=== PATIENT | female | born 1940 | race Caucasian/White ===

== ENCOUNTER → 2020-07-22 13:32 | Outpatient (CLI) | payer MEDICARE, SELFPAY ==
--- NOTE | ~2020-07-22 | CT_ITS ---
EXAMINATION: CT abdomen pelvis w con DATE: 07/22/2020 14:08 INDICATION: Pelvic pain and bilateral lower abdominal pain. TECHNIQUE: Computed tomography (CT) of the abdomen and pelvis was performed with 100 mL Omnipaque-350 intravenous contrast. Automated exposure control and iterative reconstruction technique were employe d. The dose-length product was 563.62 mGy-cm. COMPARISON: 02/01/2015 FINDINGS: Several small nodules in the lateral basilar segment of the right lower lobe, the largest measuring 6 mm in maximal diameter. There is mild bronchiectasis in this region suggesting several may represent mucus impacted bronchi. Mild atelectasis at the lingula. Heart size is normal. Atherosclerotic coron toma artery calcifications. No pericardial or pleural effusion. Liver, gallbladder, spleen, pancreas a nd bilateral adrenal glands are normal. Moderate right renal atrophy. There are also bilateral renal cysts measuring up to 2.3 cm at the lower pole of the right kidney. 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 There are scattered colonic diverticula. There is circumferential wall thickening along an approximately 6 cm segment of proximal sigmoid colon with shouldering of the relatively abrupt transitions to normal wall thickness and without significant surrounding inflammat ory stranding which would favor a colon cancer over other focal colitis or diverticulitis. Moderate a mount of stool scattered throughout the colon. No dilated loops of bowel to suggest obstruction. The appendix is not visualized. No pericecal inflammatory change to suggest acute appendicitis. Bladder i s normal. The uterus is not identified and has likely been surgically resected. No free intraperitone al gas or fluid. 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 L5-S1 posterior spinal fusion wi th bilateral vertical baljinder and pedicle screw fixation. IMPRESSION: 1. Circumferential wall thickening along a relatively well-defined 6 cm segment of proximal sigmoid c olon concerning for colonic cancer. Differential includes less likely focal colitis or diverticulitis . Would recommend colonoscopy for further evaluation. 2. Several small pulmonary nodules measuring up to 6 mm in the right lower lobe several with appearan ce suggesting mucous plugging in a region of mild bronchiectatic change which is likely sequela of ch ronic infection. Could consider one-year follow-up low-dose noncontrast chest CT . 3. Suggestion of interval stenting of a prior fusiform infrarenal abdominal aortic aneurysm now measu ring 3 cm in maximal diameter. Correlate with surgical history. 4. Moderate right renal atrophy. Reviewed, dictated and finalized at location B. IMPRESSION: 1. Circumferential wall thickening along a relatively well-defined 6 cm segment of proximal sigmoid colon concerning for colonic cancer. Differential includes less likely focal colitis or diverticulitis. Would recommend colonoscopy for f urther evaluation. 2. Several small pulmonary nodules measuring up to 6 mm in the right lower lobe several with appearance suggesting mucous plugging in a region of mild bronchi ectatic change which is likely sequela of chronic infection. Could consider one -year follow-up low-dose noncontrast chest CT . 3. Suggestion of interval stenting of a prior fusiform infrarenal abdominal aor tic aneurysm now measuring 3 cm in maximal diameter. Correlate with surgical hi story. 4. Moderate right renal atrophy.
[2020-07-22 13:56] LABS: Estimated Glomerular Filt Rate 40
== END ==
PROVIDERS: PCP Chiropractor; Visit Provider Chiropractor
DX: R10.31 Right lower quadrant pain (principal); R93.89 Abnormal findings on diagnostic imaging of other specified body structures
CPT/HCPCS: 74177; Q9967

== ENCOUNTER 2022-02-05 11:24 | Emergency (ER) | payer MEDICARE, SELFPAY ==
--- NOTE | ~2022-02-05 | XR_ITS ---
EXAMINATION: XR chest 2V DATE: 02/05/2022 11:59 INDICATION: Shortness of breath and cough TECHNIQUE: PA and lateral views of the chest were obtained. COMPARISON: Chest radiograph dated 12/21/1969 FINDINGS: Chronic mild right apical pleural-parenchymal scarring. Small calcified nodule at the lateral right l ower lung zone consistent with old granulomatous disease. No other airspace opacities, pulmonary marva a, pleural effusion or pneumothorax. Coronary artery stenting. Mild anterior wedging of a couple mid thoracic vertebral bodies. IMPRESSION: 1. No acute cardiopulmonary disease. Reviewed, dictated and finalized at location A.
[2022-02-05 11:40] VITALS: BP 140/78; PULSE 61; RESP 20; TEMP 38.1; O2SAT 100
--- NOTE | 2022-02-05 11:47 | ED.URI ---
HPI - URI/Sore Throat General Chief Complaint: Upper Respiratory Infection Stated Complaint: COUGH/HURTS TO BREATHE/NASAL CONGESTION Time Seen by Provider: 02/05/22 12:16 Source: patient and RN notes reviewed Mode of arrival: ambulatory Limitations: no limitations History of Present Illness HPI Narrative: 82-year-old female presents to the [facility] with complaints of nasal congestion, cough, fever, reports no appetite. Reports symptoms for 4-5 days. Has not taken anything for her symptoms. Patient is not flu or COVID vaccinated Patient states that she took a COVID test at home which she reports was negative Onset (ago): day(s) (4-5) Consistency: constant Able to tolerate fluids by mouth: Yes Related Data Home Medications Medication Instructions Recorded Confirmed acetaminophen 650 mg tablet 650 mg PO Q6H PRN Insomnia 02/05/22 02/05/22 albuterol sulfate 90 mcg/actuation 2 puff inhalation QID PRN 02/05/22 02/05/22 aerosol inhaler (Ventolin HFA) Shortness Of Breath alprazolam 0.25 mg tablet 0.25 mg PO DAILY PRN Anxiety 02/05/22 02/05/22 apixaban 5 mg (74 tabs) tablets in 5 mg PO BID 02/05/22 02/05/22 a dose pack ([employer] DVT-PE Treat 30D Start) aspirin 81 mg tablet,delayed 81 mg PO DAILY 02/05/22 02/05/22 release cyclobenzaprine 10 mg tablet 10 mg PO PRN PRN Spasms 02/05/22 02/05/22 fluticasone propionate 50 2 spray intranasal PRN PRN 02/05/22 02/05/22 mcg/actuation nasal Congestion spray,suspension hydrocodone 10 mg-acetaminophen 1 tablet PO PRN PRN Pain 02/05/22 02/05/22 325 mg tablet isosorbide mononitrate 60 mg 60 mg PO DAILY 02/05/22 02/05/22 tablet,extended release 24 hr lisinopril 20 mg tablet 20 mg PO DAILY 02/05/22 02/05/22 metoprolol tartrate 50 mg tablet 50 mg PO DAILY 02/05/22 02/05/22 nitroglycerin 0.4 mg sublingual 0.4 mg sublingual PRN PRN Chest 02/05/22 02/05/22 tablet Pain pantoprazole 20 mg tablet,delayed 20 mg PO DAILY 02/05/22 02/05/22 release polyvinyl alcohol-povidone (PF) 1 drp EACH EYE QID 02/05/22 02/05/22 1.4 %-0.6 % eye drops in a dropperette (Refresh Classic (PF)) rosuvastatin 20 mg tablet 20 mg PO DAILY 02/05/22 02/05/22 spironolactone 25 mg tablet 25 mg PO DAILY 02/05/22 02/05/22 tiotropium bromide 18 mcg capsule 1 cap inhalation DAILY 02/05/22 02/05/22 with inhalation device (Spiriva with HandiHaler) vit C 250 mg-vit E 90 mg-zinc 40 1 tablet PO BID 02/05/22 02/05/22 mg-copper 1 [id number]-qiwsry-fwobrw capsule (PreserVision AREDS-2) zolpidem 10 mg tablet 10 mg PO HS PRN Sleep 02/05/22 02/05/22 Allergies Allergy/AdvReac Type Severity Reaction Status Date / Time morphine Allergy Mild Itching Verified 02/05/22 11:48 MEPERIDINE HCL Allergy Severe airway Uncoded 09/20/16 18:30 Review of Systems Review of Systems: All systems reviewed & are unremarkable except as noted in HPI and below Constitutional: Constitutional: Reports as per HPI, Reports chills, Reports fatigue and Reports fever(s) Eyes: Eyes: Reports no additional eye complaints ENT: Reports as per HPI and Reports nasal congestion Cardiovascular: Cardiovascular: Reports no additional cardiovascular complaints Respiratory: Respiratory: Reports as per HPI and Reports cough Gastrointestinal: Gastrointestinal: Reports no additional gastrointestinal complaints Musculoskeletal: Musculoskeletal: Reports no additional musculoskeletal complaints Integumentary/Breasts: Skin/Breast: Reports system reviewed and no additional complaints, except as docu Neurologic: Reports system reviewed and no additional complaints, except as documented Psychiatric: Psychiatric: Reports no additional psychiatric complaints Allergic/Immunologic: Allergic/Immunologic: Reports no additional allergic/immunologic complaints PMFSH Past Medical History Medical History Anxiety High cholesterol History of high blood pressure Pulmonary emboli Comments At the [facility]
== END 2022-02-05 12:45 | disposition home or self-care (01) ==
PROVIDERS: Emergency Provider Nurse Practitioner
DX: U07.1 COVID-19 (principal); E78.00 Pure hypercholesterolemia, unspecified; I10 Essential (primary) hypertension; Z86.711 Personal history of pulmonary embolism; Z79.82 Long term (current) use of aspirin
CPT/HCPCS: 71046; 87426; 87804; 99213; C9803; G0463

== ENCOUNTER 2022-03-24 13:25 | Outpatient (CLI) | payer MEDICARE, SELFPAY ==
--- NOTE | ~2022-03-24 | US_ITS ---
EXAMINATION:US venous doppler LE LT INDICATION:History of DVT. Patient on blood thinners. TECHNIQUE: Multiple grayscale, color flow and Doppler images of the left lower extremity deep venous systems were obtained and reviewed. COMPARISON:No prior studies for comparison. FINDINGS: The common femoral, superficial femoral and popliteal veins demonstrate normal respiratory variation, augmentation and compressibility. Color flow is also seen within the posterior tibial, pe roneal, greater saphenous and profunda veins. IMPRESSION: 1: No lower extremity deep venous thrombosis. Reviewed, dictated and finalized at location A. ENTATION SPECIALIST
== END 2022-03-24 13:26 | disposition home or self-care (01) ==
PROVIDERS: PCP Family Medicine; Visit Provider Family Medicine
DX: R07.89 Other chest pain (principal); I82.409 Acute embolism and thrombosis of unspecified deep veins of unspecified lower extremity
CPT/HCPCS: 93971

== ENCOUNTER 2022-04-04 12:12 | Emergency (ER) | payer MEDICARE, SELFPAY | END 2022-04-04 13:00 | disposition left against medical advice (07) | PROVIDERS: PCP Family Medicine | DX: Z53.21 Procedure and treatment not carried out due to patient leaving prior to being seen by health care provider (principal) | CPT/HCPCS: 99199 ==

== ENCOUNTER → 2022-08-08 11:17 | Outpatient (CLI) | payer MEDICARE, SELFPAY ==
--- NOTE | ~2022-08-08 | XR_ITS ---
EXAMINATION: [id number] INDICATION: Rib pain TECHNIQUE: A frontal view of the chest and 3 views of the bilateral ribs were obtained. COMPARISON: 02/05/2022 FINDINGS: The lungs are free of acute opacities. No pleural effusion or pneumothorax. The cardiomedia stinal silhouette is normal. No displaced rib fracture is identified. A coronary artery stent is note d. IMPRESSION: 1. No acute cardiopulmonary abnormality or evidence of displaced rib fracture. Reviewed, dictated and finalized at location L.
== END ==
PROVIDERS: PCP Family Medicine; Visit Provider Physician Assistant
DX: R07.81 Pleurodynia (principal)
CPT/HCPCS: 71111

== ENCOUNTER 2024-01-08 14:34 | Outpatient (CLI) | payer MEDICARE, SELFPAY ==
--- NOTE | ~2024-01-08 | XR_ITS ---
3 VIEWS LUMBAR SPINE Ordering provider: Eugenia Tejada MD History: . fall 2 weeks ago lbp , hx of back sx many years ago . Comparison: None. FINDINGS: VERTEBRAL BODIES:Postoperative changes in the lumbosacral area. No visible fracture or subluxation. Slight anterior loss of height of L1 is noted most likely chronic. Degenerative changes of the spine. DISK SPACES: Normal. SOFT TISSUES: Normal. IMPRESSION: No acute osseous abnormality lumbar spine. Reviewed, dictated and finalized at location A.
== END 2024-01-08 14:35 | disposition home or self-care (01) ==
PROVIDERS: PCP Family Medicine; Visit Provider Family Medicine
DX: M54.50 Low back pain, unspecified (principal)
CPT/HCPCS: 72110

== ENCOUNTER 2024-10-02 09:24 | Outpatient (CLI) | payer MEDICARE, SELFPAY ==
--- OUTSIDE RECORDS SUMMARY | 2024-10-02 09:49 | XMS_ITS | Clinical Summary ---
Author Organization [facility] Address [address] [place] [address] Care Team Providers Care Pigment Weigher Name Role Phone Diane Campo MD Unavailable [phone] Israel Mari MD Unavailable [phone] Matthew Jones MD Unavailable [phone] Raheem Hess MD Unavailable [phone] Eugenia Tejada MD Primary Care Provider + Allergies Active Allergy Reactions Criticality Noted Date Comments Adhesive Rash Medium Meperidine Anaphylaxis,Hives,Swelling High Throat swelling Morphine Itching Medium Medications lisinopriL (PRINIVIL,ZESTRIL) 20 mg tabletIndications: Renovascular hypertension Take 1 tablet (20 mg total) by mouth 2 (two) times a day 180 tablet 2 Active cyclobenzaprine (FLEXERIL) 5 mg tablet Take 1 tablet (5 mg total) by mouth every morning for muscle spasms 4 Active aspirin 81 mg chewable tablet Take 1 tablet (81 mg total) by mouth daily Active fluticasone propionate (FLONASE) 50 mcg/actuation nasal spray Administer 1 spray into each nostril daily as needed for rhinitis Active isosorbide mononitrate ER (IMDUR) 60 mg 24 hr tablet Take 1 tablet (60 mg total) by mouth daily Active metoprolol tartrate (LOPRESSOR) 50 mg immediate release tablet Take 1 tablet (50 mg total) by mouth 2 (two) times a day Active nitroglycerin (NITROSTAT) 0.[address] 1 tablet (0.4 mg total) under the tongue every 5 (five) minutes as needed for chest pain Active pantoprazole DR (PROTONIX) 20 mg EC tablet Take 2 tablets (40 mg total) by mouth nightly Active rosuvastatin (CRESTOR) 20 mg tablet Take 1 tablet (20 mg total) by mouth nightly Active tiotropium (SPIRIVA) 18 mcg per inhalation capsule Place 1 puff (1 capsule total) into inhaler and inhale bedtime Active albuterol HFA (PROVENTIL HFA,VENTOLIN HFA,PROAIR HFA) 90 mcg/actuation inhaler Inhale 2 puffs every 6 (six) hours as needed for wheezing Active zolpidem (AMBIEN) 10 mg tabletIndications: Sleep-Onset Insomnia Take 1 tablet (10 mg total) by mouth nightly 10 tablet 4 Active acetaminophen (TYLENOL) 325 mg tabletIndications: Fever,Pain Take 2 tablets (650 mg total) by mouth every 4 (four) hours as needed for pain 4 Active ondansetron ODT (ZOFRAN-ODT) 4 mg disintegrating tabletIndications: Nausea and Vomiting Take 1 tablet (4 mg total) by mouth every 6 (six) hours as needed for nausea or vomiting 4 Active oxyCODONE (ROXICODONE) 5 mg immediate release tabletIndications: Pain Take 1 tablet (5 mg total) by mouth every 4 (four) hours as needed for pain 10 tablet 4 Active polyethylene glycol (MIRALAX) 17 gram packet Take 1 packet (17 g total) by mouth daily 4 Active polyethylene glycol (MIRALAX) 17 gram packetIndications: constipation Take 1 packet (17 g total) by mouth daily 4 Active Active Problems Problem Noted Date Diagnosed Date Drug-induced constipation 03/22/2024 Closed fracture of left hip 03/19/2024 Fall 03/19/2024 S/p left hip fracture 03/19/2024 Primary insomnia 09/27/2021 Assessment & Plan (01/12/2022 2:01 PM CDT): - chronic, stable - well managed with Ambien 10 mg nightly - continue management, refill provided Assessment & Plan (09/27/2021 11:06 AM CDT): - chronic, stable - well managed with Ambien 10 mg nightly - continue management, refill provided Moderate episode of recurrent major depressive d isorder 03/16/2021 Assessment & Plan (01/12/2022 3:19 PM CDT): - chronic, not at goal - does not desire to be on medications for depression - somewhat depressed due to current medical/physical condition - also has fibromyalgia - no longer on Cymbalta - continue with current therapy, I have given her my recommendation but does not desire to be on medications, states she will manage Lab Results Component Value Date TSH 1.63 04/23/2021 Assessment & Plan (06/13/2021 1:41 AM BODY SPECIALIST): - chronic, not at goal but improved - somewhat depressed due to current medical/physical condition - also has fibromyalgia - started Cymbalta on last visit with improvement, now at Cymbalta DR 40 mg daily - continue with current therapy Assessment & Plan (03/16/2021 12:10 AM BODY SPECIALIST): - somewhat depressed due to current medical/physical condition - also has fibromyalgia - recommend starting Cymbalta to help with depression and fibromyalgia - start Cymbalta and up titrate as prescribed - follow up in 6-8 weeks S/P lumbar spinal fusion 03/16/2021 Overview (03/16/2021): spinal fusion Lumbar 4-5 fusion Calculus of gallbladder with acute cholecystitis without obstruction 12/05/2020 Assessment & Plan (12/05/2020 7:54 PM CDT): - noted on recent hospitalization - US RUQ 10/03/20 - IMPRESSION: 1. Acute calculous cholecystitis characterized by cholelithiasis, A dilated gallbladder, gallbladder wall thickening, pericholecystic fluid, and positive sonographic Woo sign. - patient was recommended surgery but opted to defer it at the time S/P laparoscopic colectomy 12/03/2020 Overview (12/03/2020): S/p laparoscopic left colectomy due to sigmoid stricture Heart palpitations 09/04/2020 Assessment & Plan (09/04/2020 2:10 PM CDT): - she has history of frequent PVCs and heart palpitations - has been doing well since she has been on Metoprolol Stage 3b chronic kidney disease 09/04/2020 Assessment & Plan (01/12/2022 3:17 PM CDT): - chronic, follows with Nephrology - Dr. Hess - she has known secondary hyperparathyroidism - she has known right renal artery stenosis with scarring - hypertension being managed closely - she has anemia of CKD as well - noted to have renal cysts, at some point if was though to be renal mass but repeat imaging only showed cysts, states she has been told to have one of her kidney's resected out, has follow up in 04/2022 Lab Results Component Value Date CREATININE 1.54 (H) 11/04/2021 BUNSER 24 11/04/2021 SODIUM 135 11/04/2021 POTASSIUM 4.3 11/04/2021 CO2 23 11/04/2021 Assessment & Plan (09/27/2021 10:48 AM CDT): - follows with Nephrology - Dr. Hess - she has known secondary hyperparathyroidism - she has known right renal artery stenosis with scarring - hypertension being managed closely - she has anemia of CKD as well - noted to have renal cysts, at some point if was though to be renal mass but repeat imaging only showed cysts Assessment & Plan (09/04/2020 9:05 PM CDT): - follows with Nephrology - Dr. Hess - she has known secondary hyperparathyroidism - she has known right renal artery stenosis with scarring - hypertension being managed closely - she has anemia of CKD as well - noted to have renal cysts, at some point if was though to be renal mass but repeat imaging only showed cysts S/P total abdominal hysterectomy 09/04/2020 STACEY (generalized anxiety disorder) 09/04/2020 Assessment & Plan (01/12/2022 3:19 PM CDT): - chronic, not at goal - does not desire to be on medications for depression - she has Xanax 0.25 mg which she might use once a month or so - also has fibromyalgia - no longer on Cymbalta - continue with current therapy, I have given her my recommendation but does not desire to be on medications, states she will manage Assessment & Plan (09/27/2021 11:05 AM CDT): - chronic, stable - not on a daily medication - she has had Xanax 0.25mg which she might use once a month or so, refill provided Assessment & Plan (09/04/2020 9:07 PM CDT): - not on a daily medication - she has had Xanax which she might use 4-6 times a year Former smoker 09/03/2020 Assessment & Plan (09/03/2020 1:59 PM CDT): Social History Tobacco Use Smoking Status Former Smoker Packs/day: 1.00 Years: 60.00 Pack years: 60.00 Types: Cigarettes Quit date: 2016 Years since quittin.3 Smokeless Tobacco Never Used Tobacco Comment quit 4 years ago GERD (gastroesophageal reflux disease) Assessment & Plan (12/03/2020 3:02 PM CDT): - currently on Pantoprazole 40 mg nightly - has been working well for her - has never had endoscopy - continue with current therapy Recommend the following changes: - Avoid trigger foods (such as spicy foods, fried foods, onions, peppermints, chocolate, high acid foods and juices, caffeinated beverages, carbonated beverages, and tomato based products). - Avoid alcohol take. - Avoid routine use of NSAIDs. - Avoid lying down for 2-3 hours after eating. - Weight loss encouraged. - Eat smaller meals. - Avoid tobacco use. - Sleep on left side. - may sleep with bed propped. - Avoid wearing tight clothing that puts pressure on the stomach. Assessment & Plan (09/03/2020 2:03 PM CDT): - currently on Pantoprazole 20 mg BID - feels like it does not work very well - worse in nighttime, gets burning symptoms - has never had endoscopy - discussed to use 40 mg nightly and see if that helps Right posterior capsular opacification 8 Chronic bilateral thoracic back pain 10/26/2017 Renovascular hypertension 02/13/2017 Assessment & Plan (01/12/2022 2:03 PM CDT): - chronic, good control, fluctuating - follows with Nephrology - currently on Lisinopril 10mg and 20 mg daily, Metoprolol tartrate 50 mg daily, isosorbide 60 mg nightly - switch to Lisinopril 20 mg BID and start taking chlorthalidone 12.5mg daily, Spironolactone 25 mg daily, Imdur 60 mg daily - she has hx of hypokalemia - current condition CAD s/p stent placement - she follows with Nephrology, she has known renal artery stenosis - management of her BP has not been easy according to her Assessment & Plan (01/13/2021 9:20 PM CDT): - suboptimal control, fluctuating, recent ED visit due to elevated BP readings - currently on Lisinopril 10mg and 20 mg daily, Metoprolol tartrate 50 mg daily, isosorbide 60 mg nightly - switch to Lisinopril 20 mg BID and start taking chlor thalidone 12.5mg daily - she has hx of hypokalemia so will need to monitor her electrolytes closely to avoid hypokalemia - current condition CAD s/p stent placement - she follows with Nephrology, she has known renal artery stenosis - management of her BP has not been easy according to her Assessment & Plan (12/03/2020 2:00 PM CDT): - suboptimal control, fluctuating - currently on Lisinopril 10mg BID and Metoprolol tartrate 50 mg daily, isosorbide 60 mg nightly - current condition CAD s/p stent placement - she follows with Nephrology, she has known renal artery stenosis - management of her BP has not been easy according to her Assessment & Plan (09/04/2020 8:59 PM CDT): - suboptimal control - currently on Lisinopril 30 mg daily and Metoprolol tartrate 50 mg daily - current condition CAD s/p stent placement - will adjust medications - amlodipine caused her leg swelling - she follows with Nephrology, she has known renal artery stenosis - management of her BP has not been easy according to her Pseudophakia of both eyes 06/02/2016 Early dry stage nonexudative age-related macular degeneration of both eyes 06/02/2016 History of abdominal aortic aneurysm (AAA) repai r 12/27/2015 Assessment & Plan (09/04/2020 2:09 PM CDT): - s/p open repair in 06/[address] Abdullahi Saldaña Assessment & Plan (09/05/2017 4:47 PM CDT): S/p repair in June. Doing well. Multiple pulmonary nodules 12/27/2015 Assessment & Plan (03/16/2021 12:16 AM BODY SPECIALIST): - noted in the past - most recent imaging showed the following 01/2020 LUNGS: No pneumonic consolidation. Subtle nodularity is present within the right lower lobe around axial image 52. There is a nodule at axial image 55 which measures 8 mm. There are subtle, thin walled cavitary foci at the right lower lobe axial image 88. - will likely need CT lung cancer screening follow up, will set up on next visit Dyslipidemia 12/27/2015 Assessment & Plan (01/12/2022 2:00 PM CDT): - chronic, stable and well controled - currently on Crestor 20 mg daily - goal LDL <70, has hx of CAD - most recent LDL as shown below - continue with current medication Lab Results Component Value Date LDLCALC 102 11/04/2021 Assessment & Plan (03/16/2021 12:06 AM BODY SPECIALIST): - stable and well controled - currently on Crestor 20 mg daily - goal LDL <70, has hx of CAD - most recent LDL as shown below - continue with current medication - recheck lipid panel before next visit, order placed Lab Results Component Value Date LDLCALC 34 09/21/2020 Assessment & Plan (12/03/2020 3:00 PM CDT): - stable and well controled - currently on Crestor 20 mg daily - goal LDL <70, has hx of CAD - most recent LDL as shown below Lab Results Component Value Date LDLCALC 34 09/21/2020 Assessment & Plan (09/03/2020 1:51 PM CDT): - stable and well controled - currently on Crestor 20 mg daily - goal LDL , 70, most recent LDL as shown below - has hx of CAD Lab Results Component Value Date LDLCALC 62 12/30/2018 Syphilitic ostial coronary disease 12/27/2015 Shortness of breath 06/18/2013 Assessment & Plan (09/04/2020 8:58 PM CDT): - has 60 pk/years of smoking - has albuterol rescue inhaler very infrequently - uses Spiriva on a daily basis - will need a PFT to confirm diagnosis, likely COPD with her hx of smoking Coronary arteriosclerosis in [place] artery 10/12 Assessment & Plan (12/03/2020 2:59 PM CDT): - hx of CAD s/p stents x3 - status post stenting of the circumflex and LAD, with negative nuclear stress test in December 2015. - follows with Cardiology at this time - no shortness of breath or angina - currently on Aspirin 81 mg, Crestor 20 mg, Metoprolol tartrate 50 mg daily - most recent LDL as shown below, goal of LDL <70 Lab Results Component Value Date LDLCALC 34 09/21/2020 - she is a Former long time smoker - continue with current therapy Assessment & Plan (09/04/2020 8:56 PM CDT): - hx of CAD s/p stents x3 - status post stenting of the circumflex and LAD, with negative nuclear stress test in December 2015. - follows with Cardiology at this time - no shortness of breath or angina - currently on Aspirin 81 mg, Crestor 20 mg, Metoprolol tartrate 50 mg daily - most recent LDL as shown below, goal of LDL <70 Lab Results Component Value Date LDLCALC 62 12/30/2018 - she is a Former long time smoker Assessment & Plan (09/05/2017 4:46 PM CDT): Coronary artery disease is unchanged. Continue current treatment regimen. Continue current medications. Cardiac status will be reassessed in 3 months. 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 Mcgowan but has stopped - has stopped narcotic pain medications as it was not helping at all - on gabapentin 300 mg daily - no longer on Cymbalta DR 40 mg daily - frustrated with lack of improvement - uses flexeril PRN - mental health in not good, does not desire mental health medications Lab Results Component Value Date TSH 1.63 04/23/2021 Vitamin D 25-OH Date Value Ref Range Status 08/09/2021 14 (L) 30 - 80 ng/mL Final Assessment & Plan (09/27/2021 10:47 AM CDT): - chronic, not at goal/worse - follows with pain management Dr. Mcgowan - on narcotic pain medications but not helping at all - on gabapentin 300 mg daily - currently on Cymbalta DR 40 mg daily - frustrated with lack of improvement - used flexeril in past - restart Flexeril 5mg daily and if helping can increase dose, script sent Assessment & Plan (06/13/2021 1:39 AM BODY SPECIALIST): - chronic, not at goal/worse - follows with pain management Dr. Mcgowan - on narcotic pain medications but not helping at all - on gabapentin 300 mg daily - currently on Cymbalta DR 40 mg daily - frustrated with lack of improvement - used flexeril in past - restart Flexeril 5mg daily and if helping can increase dose, script sent Assessment & Plan (03/04/2021 2:01 PM BODY SPECIALIST): - chronic, not at goal - not taking any medications at this time - follows with pain management Dr. Mcgowan - on narcotic pain medications - on gabapentin 300 mg daily - not helping at all - start Cymbalta at a low dose Assessment & Plan (12/03/2020 3:49 PM CDT): - has been a chronic condition - not taking any medications at this time - follows with pain management Dr. Mcgowan Assessment & Plan (09/03/2020 1:53 PM CDT): - has been a chronic condition - not taking any medications at this time - follows with pain management Dr. Mcgowan Assessment & Plan (09/05/2017 4:46 PM CDT): Stable. Continue present management. 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 Continue present management. Resolved Problems Problem Noted Date Diagnosed Date Resolved Date Anemia 12/03/2020 03/16/2021 Assessment & Plan (03/16/2021 12:18 AM BODY SPECIALIST): - chronic condition, normalized - check Irons studies, folate, b12 Lab Results Component Value Date HGB 12.2 02/15/2021 Lab Results Component Value Date IRON 63 12/03/2020 TIBC 265 12/03/2020 FERRITIN 55 12/03/2020 Assessment & Plan (12/03/2020 3:51 PM CDT): - chronic condition - check Irons studies, folate, b12 Lab Results Component Value Date HGB 10.8 (L) 12/03/2020 Status post gastrointestinal surgery 10/21/2020 03/16/2021 Stricture of sigmoid colon (CMS/HCC) 08/24/2020 12/03/2020 Sigmoid stricture (CMS/HCC) 08/24/2020 12/03/2020 Overview (08/24/2020): Added automatically from request for surgery [id number] Assessment & Plan (09/04/2020 8:59 PM CDT): - initially noted to have a circumferential wall thickening of the proximal sigmoid colon concerning for malignancy - noted on Colonoscopy to have a stricture - about to undergo colon resection and biopsy for this in September 2020 Eczematous dermatitis of eyelid 03/14/2018 09/03/2020 Pain of both shoulder joints 10/26/2017 09/04/2020 Costochondritis 10/26/2017 09/03/2020 Hypokalemia 08/10/2017 01/12/2022 Assessment & Plan (12/03/2020 3:50 PM CDT): - not on a potassium supplement but has at home that she takes sporadically - having more muscle spasms so concerned about hypokalemia - will check CMP - may need to be on daily low dose potassium supplementation Assessment & Plan (09/03/2020 1:54 PM CDT): - not on a potassium supplement but has at home that she takes sporadically - potassium chloride, not sure about the dosage Tobacco dependence syndrome 12/27/2015 10/26/2017 Overview (07/20/2016): Tobacco dependence Atherosclerosis of aorta ([facility]/HCC) 12/27/2015 01/12/2022 Assessment & Plan (09/05/2017 4:47 PM CDT): Continue aspirin and statin. Breast neoplasm screening status 12/27/2015 09/03/2020 Overview (07/20/2016): Visit for screening mammogram Presence of stent in coronary artery 12/27/2015 09/04/2020 Exhaustion 10/27/2015 09/03/2020 Tobacco use 04/20/2015 10/26/2017 Lumbago 03/23/2015 09/04/2020 Dizziness 12/31/2013 09/03/2020 Disorder of lung 10/09/2013 09/03/2020 Dyslipidemia 10/12/2009 09/03/2020 Encounter for preventive health examination 08/31/2009 09/03/2020 Immunizations Immunization Administration Dates Next Due Influenza, Quadrivalent, Hig h Dose, Preservative Free, Intrr 12/19/2019 Influenza, Trivalent, High D ose, Split, Preservative Free, Intramuscular 01/16/2018,2016,01/30/2015,01/08 Influenza, Unspecified 01/12/2022(Deferr ed: Patient Refused),02/14/2021,01/16/2019, 019,2018,2018,2017,1 Pneumococcal Conjugate PCV 13 12/27/2015 Pneumococcal Polysaccharide PPV23 02/20/2019,04/2001,04/16/2001 Surgical History Surgery Date Site/Laterality Comments TOTAL ABDOMINAL HYSTERECTOMY Hysterectomy, total SPINAL FUSION Spinal fusion, lumbar BACK SURGERY Back Surgery - (Added by TW Conv) [place] EXPLORATION N/FLWD SURG NECK ARTERY Carotid Artery Exploration - (Added by TW Conv) AORTIC ANEURYSM REPAIR 06/20/2017 ABDOMINAL AORTIC ANEURYSM REPAIR HYSTERECTOMY SECTION x4 COLONOSCOPY TUBAL LIGATION COLON SURGERY 09/20/2020 Laparoscopic-assisted left colectomy. CATARACT EXTRACTION Don t remember Medical History Medical History Date Comments Delivered by section 1966 Carotid artery disease 2006 s/p CEA Hypertension AAA (abdominal aortic aneurysm) s/p open repair Weight loss Angina pectoris Constipation Urinary incontinence Back pain Depression Arthritis Kidney disorder Postoperative delirium post-op p ulled out stitched in recovery CAD (coronary artery disease) 2007 s/ p stents GERD (gastroesophageal reflux disease) . Chronic bronchitis (HCC) Often Neuromuscular disorder (HCC) Family History Medical History Relation Name Comments Cancer Brother 2 Wojciech Other Brother 2 Wojciech cancer of the h eart; Cause of : cancer of the heart Alcohol abuse Father Wilfrido Alcoholism; Ca use of : Alcoholism Stroke Father Wilfrido Stroke; Cause o f : Stroke Cancer Mother Sun Stroke Mother Sun Stroke; Cause o f : Stroke Alzheimer's disease Sister Ivonne Anuerysm Sister Ivonne aneurysm; Anesthesia problems Neg Hx Colon cancer Neg Hx Relation Name Status Comments Brother 1 (Age 70) Brother 2 Wojciech Father Wilfrido (Age 65) Mother Sun (Age 80) Sister Ivonne Social History Tobacco Use Types Packs/Day Years Used Date Smoking Tobacco: Former Cigarettes 0.8 60 1 959 - 2016 Smokeless Tobacco: Never Tobacco Cessation:Counseling Given: Not Answered Comments:quit 4 years ago Alcohol Use Standard Drinks/Week Comments Not Currently 0 (1 standard drink = 0.6 oz pur e alcohol) [facility] Utilities Answer Date Recorded In the past 12 months has [employer], gas, oil, or water [place] threatened to shut off services in your home? No 03/20/2024 Social Connection and Isolat ion Panel [NHANES] Answer Date Recorded In a typical week, how many times do you talk on the phone with family, friends, or neighbors? Three times a week 03/20/2024 How often do you get togethe r with friends or relatives? Three times a week 03/20/2024 How often do you attend chur ch or tenriism services? Never 03/20/2024 Do you belong to any clubs o r organizations such as buddhist groups, unions, fraternal or athletic groups, or school groups? Yes 03/20/2024 How often do you attend meet ings of the clubs or organizations you belong to? More than 4 times per year 03/20/2024 Are you , , di vorced, , never , or living with a partner? 03/20/2024 AUDIT-C Answer Date Recorded Q1: How often do you have a drink containing alc ohol? Never 09/17/2020 Average Number of Drinks Not on file 021 Q3: How often do you have si x or more drinks on one occasion? Never 09/17/2020 Overall Financial Resource Strain (CARDIA) Answe r Date Recorded How hard is it for you to pa y for the very basics like food, housing, medical care, and heating? Not hard at all 03/20/2024 PHQ-2 Answer Date Recorded PHQ-2 Total Score (If total score is 3 or more points, staff should administer the PHQ-9) 0 01/12/2022 Hunger Vital Sign Answer Date Recorded Within the past 12 months, y ou worried that your food would run out before you got the money to buy more. Never true 03/20/20 24 Within the past 12 months, t he food you bought just didn't last and you didn't have money to get more. Never true 03/20/2024 PRAPARE - Transportation Answer Date Re corded In the past 12 months, has l ack of transportation kept you from medical appointments or from getting medications? No 08/2023 In the past 12 months, has l ack of transportation kept you from meetings, work, or from getting things needed for daily living? No 03/20/2024 Housing Stability Vital Sign Answer Momo e Recorded In the last 12 months, was t here a time when you were not able to pay the mortgage or rent on time? No 03/20/2024 Number of Times Moved in the Last Year Not on fi le 03/20/2024 At any time in the past 12 m general [facility], were you homeless or living in a prison (including now)? No 03/20/2024 Personal Safety Answer Date Recorded Have you ever been in or are you currently in a harmful physical or emotional relationship or is someone making you feel afraid or unsafe? Denies 03/20/2024 Comments No Sex and Gender Information Value Date Recorded Sex Assigned at Not on file Legal Sex Female 2:38 AM BODY SPECIALIST Gender Identity Not on file Sexual Orientation Not on file Obstetrics History Last Filed Vital Signs Vital Sign Reading Time Taken Comments Blood Pressure 115/55 03/26/2024 8:08 AM BODY SPECIALIST Pulse 73 03/26/2024 9:20 AM BODY SPECIALIST Temperature 36.4 C (97.6 F) 03/26/2024 8:08 AM BODY SPECIALIST Respiratory Rate 16 03/26/2024 8:08 AM BODY SPECIALIST Oxygen Saturation 96% 03/26/2024 8:57 AM BODY SPECIALIST Inhaled Oxygen Concentration - - Weight 79.4 kg (175 lb 0.7 oz) 03/20/2024 2:30 P M BODY SPECIALIST Height 177.8 cm (5' 10) 03/20/2024 2:30 PM BODY SPECIALIST Body Mass Index 25.12 03/20/2024 2:30 PM BODY SPECIALIST Plan of Treatment Scheduled Procedures Name Priority Associated Diagnoses Date/Ti me ESOPHAGOGASTRODUODENOSCOPY Gastroesophageal reflux disease, esophagitis presence not specified Health Maintenance Due Date Last Done Comments Osteoporosis Screening-Bone Density Scan 1940 DTaP/Tdap/Td Vaccine (1 - Tdap) 1953 Hepatitis B Screening 01/15/1960 Zoster Vaccine (1 of 2) 01/15/1992 Well Visit 65+ 02/21/2020 02/20/2019 Depression Screening 01/12/2023 01/12/2022, 09/27/2021, 05/31/2021, Additional history exists Influenza Vaccine (Season Ended) 2024 02/14/2021, 12/19/2019, 01/16/2019, Additional history exists Fall Risk Assessment 03/26/2025 03/26/2024, 01/12/2022, 09/27/2021, Additional history exists Pneumococcal vaccine 65+ Completed 019, 12/27/2015, 04/16/2001, Additional history exists Medical Devices Implanted Type Area Camp Program Director Device Identifier Shelf Expiration Date Model / Serial / Lot Stent-09/18/2003 Implanted:Qty: 1 on 09/18/2003 Stent Heart Stent-10/24/2007 Implanted:Qty: 2 on 10/24/2007 Stent Heart [employer]/Orth o Trigen Intertan 11.5mm 42cm Antegrade Intertrochanter Left 125d [id number] - [id number] Implanted:Qty: 1 on 03/20/2024 by Parth Aleman MD at [facility] Left: Hip [employer]/O rtho [id number] 02/08/2032 [id number] / / [id number] [employer]/Rich[employer]/Orth o Intertan 4.5mm 90mm 85mm Lag Compression Integrate Interlock [id number] - [id number] Implanted:Qty: 1 on 03/20/2024 by Parth Aleman MD at [facility] Left: Hip [employer]/O rtho [id number] 09/11/2033 [id number] / / [id number] Insurance MEDICARE MEDICARE Advance Directives For more information, please contact: [phone] Documents on File Type Date Recorded Patient Ticket Seller Expl anation ADVANCE DIRECTIVE 07/06/2017 12:00 AM * Full Code (Latest Code Status on File) Date Activated Date Inactivated Comments 03/19/2024 9:07 PM 03/26/2024 4:16 PM * Full Code Date Activated Date Inactivated Comments 09/20/2020 2:28 PM 10/06/2020 6:26 PM * Full Code Date Activated Date Inactivated Comments 07/04/2017 9:57 PM 09/20/2020 9:30 AM Care Teams Pigment Weigher Relationship Specialty Start Date End Date Eugenia Tejada MD [address] [address] PCP - General Family Medicine 05/31/22 Diane Campo MD Internal Medicine 01/19/20 [place] [address] [place] [address] Referring Physician Gastroenterology 08/20/20 [place] [address] [place] [address] Surgeon General Surgery 08/24/20 Raheem Hess MD [address] [place] [address] Referring Physician Nephrology 10/13/21
--- OUTSIDE RECORDS SUMMARY | 2024-10-02 09:49 | XMS_ITS | Clinical Summary ---
Author Organization [facility] Address [address] [place] [address] Care Team Providers Care Automotive Upholsterer Name Role Phone Unavailable Primary Care Provider Unavailabl e Source Comments [facility],non-owned Affiliates and Associated Physician Practices is amultiple site organization consisting of ambulatory clinics and hospital sitesin [place], [place], [place] and [place]. This disclosure is being madepursuant to the Care Everywhere program and may not contain all information available regarding this patient. Last updated 18.[facility] [place] Social History Tobacco Use Types Packs/Day Years Used Date Smoking Tobacco: Never Assessed Comments Unknown Sex and Gender Information Value Date Recorded Sex Assigned at Not on file Legal Sex Female 6:06 AM POST DOCTORAL FELLOW Gender Identity Not on file Sexual Orientation Not on file Plan of Treatment Health Maintenance Due Date Last Done Comments BONE DENSITY TESTING 1942 DTAP/TDAP/TD VACCINES (1 - Tdap) 1961 PNEUMOCOCCAL VACCINE 50+ (1 of 1 - PCV) 01/15/1992 ZOSTER VACCINE (1 of 2) 01/15/1992 Respiratory Syncytial Virus (RSV) Vaccine Pt: or over 60 yrs (1 - 1-dose 75+ series) 2017 COVID-19 VACCINE ( - 2023-2 5 season) 2023 DEPRESSION SCREENING 04/16/2024 INFLUENZA VACCINE (Season Ended) 2024 HEPATITIS B VACCINE Aged Out No longe r eligible based on patient's age to complete this topic HIB VACCINE Aged Out No longer eligi ble based on patient's age to complete this topic HPV VACCINE Aged Out No longer eligi ble based on patient's age to complete this topic MENINGOCOCCAL (Group B) VACC INE SHARED DECISION-MAKING Aged Out No longer eligibl e based on patient's age to complete this topic MENINGOCOCCAL GROUPS A/C/Y/W VACCINE Aged Out No longer eligible b ased on patient's age to complete this topic
--- OUTSIDE RECORDS SUMMARY | 2024-10-02 09:49 | XMS_ITS | Referral Summary ---
Author Organization [facility] Address [address] [place] [address] Care Team Providers Care Automobile Mechanic Motor Name Role Phone Diane Campo MD Unavailable [phone] Israel Mari MD Unavailable [phone] Matthew Jones MD Unavailable [phone] Raheem Hess MD Unavailable [phone] Eugenia Tejada MD Primary Care Provider [...] 04/23/2021 Assessment & Plan (06/13/2021 1:41 AM OFFICE MESSENGER): - chronic, not at goal but improved - somewhat depressed due to current medical/physical condition - also has fibromyalgia - started Cymbalta on last visit with improvement, now at Cymbalta DR 40 mg daily - continue with current therapy Assessment & Plan (03/16/2021 12:10 AM OFFICE MESSENGER): - somewhat depressed due to current medical/physical [...] 12/27/2015 Assessment & Plan (03/16/2021 12:16 AM OFFICE MESSENGER): - noted in the past - most [...] 11/04/2021 Assessment & Plan (03/16/2021 12:06 AM OFFICE MESSENGER): - stable and well controled - currently [...] her hx of smoking Coronary arteriosclerosis in [place] artery 10/12 Assessment & Plan (12/03/2020 2:59 [...] 15 years - she is not with data analyst at this time - I have [...] 15 years - she is not with data analyst at this time - I have [...] sent Assessment & Plan (06/13/2021 1:39 AM OFFICE MESSENGER): - chronic, not at goal/worse - follows [...] sent Assessment & Plan (03/04/2021 2:01 PM OFFICE MESSENGER): - chronic, not at goal - not [...] 03/16/2021 Assessment & Plan (03/16/2021 12:18 AM OFFICE MESSENGER): - chronic condition, normalized - check Irons [...] (08/24/2020): Added automatically from request for surgery [id number] Assessment & Plan (09/04/2020 8:59 PM CDT): [...] Overview (07/20/2016): Tobacco dependence Atherosclerosis of aorta ([facility]/HCC) 12/27/2015 01/12/2022 Assessment & Plan (09/05/2017 4:47 [...] PCV 13 12/27/2015 Pneumococcal Polysaccharide PPV23 02/20/2019,04/2001,04/16/2001 Social History Tobacco Use Types Packs/Day Years Used Date Smoking Tobacco: Former Cigarettes 0.8 60 1 959 - 2017 Smokeless Tobacco: Never Tobacco Cessation:Counseling Given: Not Answered Comments:quit 4 years ago Alcohol Use Standard Drinks/Week Comments Not Currently 0 (1 standard drink = 0.6 oz pur e alcohol) [facility] Utilities Answer Date Recorded In the past 12 months has e [employer], gas, oil, or water company threatened to shut off services in your [...] often do you attend chur ch or anabaptism services? Never 03/20/2024 Do you belong to any clubs o r organizations such as episcopal groups, unions, fraternal or athletic groups, or [...] any time in the past 12 m [facility], were you homeless or living in a senior care (including now)? No 03/20/2024 Personal Safety Answer Date Recorded Have you ever been in or are you currently in a harmful physical or emotional relationship or is someone making you feel afraid or unsafe? Denies 03/20/2024 Comments No Sex and Gender Information Value Date Recorded Sex Assigned at Not on file Legal Sex Female 2:38 AM OFFICE MESSENGER Gender Identity Not on file Sexual Orientation Not on file Last Filed Vital Signs Vital Sign Reading Time Taken Comments Blood Pressure 115/55 03/26/2024 8:08 AM OFFICE MESSENGER Pulse 73 03/26/2024 9:20 AM OFFICE MESSENGER Temperature 36.4 C (97.6 F) 03/26/2024 8:08 AM OFFICE MESSENGER Respiratory Rate 16 03/26/2024 8:08 AM OFFICE MESSENGER Oxygen Saturation 96% 03/26/2024 8:57 AM OFFICE MESSENGER Inhaled Oxygen Concentration - - Weight 79.4 kg (175 lb 0.7 oz) 03/20/2024 2:30 P M OFFICE MESSENGER Height 177.8 cm (5' 10) 03/20/2024 2:30 PM OFFICE MESSENGER Body Mass Index 25.12 03/20/2024 2:30 PM OFFICE MESSENGER Plan of Treatment Scheduled Procedures Name Priority Associated Diagnoses Date/Ti me ESOPHAGOGASTRODUODENOSCOPY Gastroesophageal reflux disease, esophagitis presence not specified Medical Devices Implanted Type Area Public Health Social Worker Device Identifier Shelf Expiration Date Model / Serial / Lot Stent-09/18/2003 Implanted:Qty: 1 on 09/18/2003 Stent Heart Stent-10/24/2007 Implanted:Qty: 2 on 10/24/2007 Stent Heart [employer]/Orth o Trigen Intertan 11.5mm 42cm Antegrade Intertrochanter Left 125d [id number] - [id number] Implanted:Qty: 1 on 03/20/2024 by Parth Aleman MD at [facility] Left: Hip [employer]/O rtho [id number] 02/08/2032 [id number] / / [id number] [employer]/Orth o Intertan 4.5mm 90mm 85mm Lag Compression Integrate Interlock [id number] - [id number] Implanted:Qty: 1 on 03/20/2024 by Parth Aleman MD at [facility] Left: Hip [employer]/O rtho [id number] 09/11/2033 [id number] / / [id number] Insurance MEDICARE MEDICARE Advance Directives For more information, please contact: [phone] Documents on File Type Date Recorded Patient Optical Instruments Supervisor Expl anation ADVANCE DIRECTIVE 07/06/2017 12:00 AM * Full Code (Latest Code Status on File) Date Activated Date Inactivated Comments 03/19/2024 9:07 PM 03/26/2024 4:16 PM * Full Code Date Activated Date Inactivated Comments 09/20/2020 2:28 PM 10/06/2020 6:26 PM * Full Code Date Activated Date Inactivated Comments 07/04/2017 9:57 PM 09/20/2020 9:30 AM Care Teams Automobile Mechanic Motor Relationship Specialty Start Date End Date Eugenia Tejada MD [address] [address] PCP - General Family Medicine 05/31/22 Diane Campo MD Internal Medicine 01/19/20 Israel Mari MD [address] [place] [address] Referring Physician Gastroenterology 08/20/20 [place] [address] [place] [address] Surgeon General Surgery 08/24/20 Raheem Hess MD [address] [place] [address] Referring Physician Nephrology 10/13/21
--- OUTSIDE RECORDS SUMMARY | 2024-10-02 09:49 | XMS_ITS | CONTINUITY OF CARE DOCUMENT ---
Author Name janice camacho Address Unknown Organization [facility] Address [address] [place] [address] Phone [phone] Care Team Providers Care Court Commissioner Name Role Phone Aden WILSON, Beena Unavailable [phone] INSURANCE PROVIDERS Payer name Policy type / Coverage type [place] red [employer] party ID [place] MED[place] Medicare [id number]
--- OUTSIDE RECORDS SUMMARY | 2024-10-02 09:49 | XMS_ITS | Continuity of Care Document ---
Author Organization [facility] Address [address] [place] [address] [address] [place] [address] Phone Care Team Providers Care Nuclear Plant Construction Worker Name Role Phone Bonilla OD, Hair Unavailable Unavailable Procedures Procedure Date Eye Exam & Treatment Dilated Macular Exam Performed 08 Refraction Eye Exam, New Patient Refraction Visual Functional Status Assessed AREDS Formula Prescribed/Recommended Mar Dilated Macular Exam Performed 07 Advance Directives Directive Yes / No Effective Date File Name No Information Encounters Encounter Description Practice Location Reason(s) For Visit Diagnoses Date Provider Providers Copied on Encounter [facility], [address] [place] [address] [address], [place], [place], [id number], tel:[phone] [facility] [place] No Information Mar- 0-200 8 Bonilla OD Hair. [address] [place] , [address], [place], [address], [place]. tel:[phone] [facility], [address] [place] [address] [address], [place], [place], [id number], tel:[phone] [facility] [place] No Information Mar-2 6-200 7 Bonilla OD Hair. [address], [place], [address], [place]. tel:[phone] Family History Family Member Type Diagnosis Age At Onset No Information Payers Payer name Insurance type Covered green party ID Authoriza tion(s) Medicare [facility] [id number] Social History Type Description Quantity Date Captured Comments Sex Female Smoking Status No Information Chief Complaint And Reason For Visit No Information Reason For Referral Reason For Referral No Information History Of Present Illness Encounter Date Complaint History Of Prese nt Illness No Information Functional Status Date Functional Assessmen t No Information Instructions Date Instruction Additional Infor mation No Information Assessments Type Assessment Date No Information Patient Care Teams Name Effective Dates (start - stop) Status Members No Information
[2024-10-02 19:47] LABS: Basophils Absolute Auto 0.1 K/mm3 (0.0-0.1); Basophils Percent Auto 0.9 % (0.2-1.2); Eosinophils Absolute Auto 0.1 K/mm3 (0-0.3); Eosinophils Percent Auto 2.3 % (0-4.4); Hematocrit 35.5 % (37.0-47.0); Hemoglobin 11.7 g/dL (12.0-15.0); Immature Granulocyte Absolute 0.01 K/mm3 (0.00-0.031); Immature Granulocyte Percent A 0.2 % (0-0.5); Lymphocytes Absolute Auto 1.35 K/mm3 (0.9-3.2); Lymphocytes Percent Auto 24.3 % (18.3-44.2); Mean Corpuscular Hemoglobin 31.5 pg (26-34); Mean Corpuscular Volume 95.7 fl (80-100); Mean Platelet Volume 11.6 fl (7.4-10.4); Monocytes Absolute Auto 0.5 K/mm3 (0.1-0.6); Neutrophils Absolute Auto 3.5 K/mm3 (1.3-6.7); Neutrophils Percent Auto 63.3 % (45.5-73.1); Platelet Count Result 148 k/mm3 (150-375); Red Blood Count 3.71 M/mm3 (4.2-5.4); Red Cell Distribution Width 13.8 % (11.5-14.5); White Blood Count 5.6 K/mm3 (4.5-10.0)
[2024-10-02 20:19] LABS: Alanine Aminotransferase 12 U/L (6-35); Albumin Level 4.4 g/dL (3.5-5.1); Alkaline Phosphatase 81 U/L (38-126); Anion Gap 12 mmol/L (4-12); Aspartate Amino Transferase 29 U/L (14-36); Bilirubin,Total 0.5 mg/dL (0.2-1.3); Blood Urea Nitrogen 19 mg/dL (7-17); Calcium 9.5 mg/dL (8.4-10.2); Carbon Dioxide 26 mmol/L (22-30); Chloride 90 mmol/L (98-107); Cholesterol 160 mg/dL (0-200); Estimated Glomerular Filt Rate 28; Glucose 97 mg/dL (65-110); HDL Direct 51 mg/dL; Potassium 3.3 mmol/L (3.4-5.0); Sodium 128 mmol/L (137-145); Total Protein 7.7 g/dL (6.3-8.2); Triglycerides 153 mg/dL (<150)
[2024-10-02 20:34] LABS: LDL Cholesterol Direct 60 mg/dL
[2024-10-02 21:04] LABS: Vitamin D 25 Hydroxy 21.8 ng/mL
[2024-10-02 21:19] LABS: Hepatitis C Virus Antibody Negative (Negative)
== END 2024-10-02 09:25 | disposition home or self-care (01) ==
LOC: ANHGOSHLAB 09:25
PROVIDERS: PCP Family Medicine; Visit Provider Family Medicine
DX: E78.2 Mixed hyperlipidemia (principal); Z11.59 Encounter for screening for other viral diseases; F33.1 Major depressive disorder, recurrent, moderate; N25.81 Secondary hyperparathyroidism of renal origin; N18.32 Chronic kidney disease, stage 3b; M06.9 Rheumatoid arthritis, unspecified
CPT/HCPCS: 36415; 80053; 80061; 82306; 82607; 84443; 85025; 86803

== ENCOUNTER 2024-10-02 09:35 | Outpatient (CLI) | payer MEDICARE, SELFPAY ==
--- NOTE | ~2024-10-02 | XR_ITS ---
Lumbosacral Spine: AP, oblique, and lateral views Clinical History: Pain COMPARISON: 01/08/2024 Findings: Stable posterior fusion from L5 to S1. Osseous and orthopedic hardware alignment is unchang ed. Mild degenerative disc changes are present in the remainder of the lumbar spine. There is moderat e facet arthropathy at L2-L3, L3-L4 and L4-L5. The sacroiliac joints are normally outlined. Impression: Moderate degenerative change, as above. Stable posterior fusion from L5 to S1. Reviewed, dictated and finalized at location M. Impression: Moderate degenerative change, as above. Stable posterior fusion from L5 to S1.
== END 2024-10-02 09:36 | disposition home or self-care (01) ==
LOC: GOSHIMG 09:35
PROVIDERS: PCP Family Medicine; Visit Provider Family Medicine
DX: M47.816 Spondylosis without myelopathy or radiculopathy, lumbar region (principal); Z98.1 Arthrodesis status
CPT/HCPCS: 72110

== ENCOUNTER 2024-10-20 10:58 | Outpatient (CLI) | payer MEDICARE, SELFPAY ==
--- OUTSIDE RECORDS SUMMARY | 2024-10-20 11:09 | XMS_ITS | Referral Summary ---
Author Organization [facility] Address [address] [place] [address] Care Team Providers Care Back Maker Name Role Phone Diane Campo MD Unavailable [phone] Israel Mari MD Unavailable [phone] Matthew Jones MD Unavailable [phone] Raheem Hess MD Unavailable [phone] Eugenia Tejada MD Primary Care Provider [...] 04/23/2021 Assessment & Plan (06/13/2021 1:41 AM CHRISTIAN COUNSELOR): - chronic, not at goal but improved - somewhat depressed due to current medical/physical condition - also has fibromyalgia - started Cymbalta on last visit with improvement, now at Cymbalta DR 40 mg daily - continue with current therapy Assessment & Plan (03/16/2021 12:10 AM CHRISTIAN COUNSELOR): - somewhat depressed due to current medical/physical [...] 12/27/2015 Assessment & Plan (03/16/2021 12:16 AM CHRISTIAN COUNSELOR): - noted in the past - most [...] 11/04/2021 Assessment & Plan (03/16/2021 12:06 AM CHRISTIAN COUNSELOR): - stable and well controled - currently [...] her hx of smoking Coronary arteriosclerosis in [place] artery 10/12 Assessment & Plan (12/03/2020 2:59 [...] 15 years - she is not with cheese cutter at this time - I have seen [...] 15 years - she is not with cheese cutter at this time - I have seen [...] sent Assessment & Plan (06/13/2021 1:39 AM CHRISTIAN COUNSELOR): - chronic, not at goal/worse - follows [...] sent Assessment & Plan (03/04/2021 2:01 PM CHRISTIAN COUNSELOR): - chronic, not at goal - not [...] 03/16/2021 Assessment & Plan (03/16/2021 12:18 AM CHRISTIAN COUNSELOR): - chronic condition, normalized - check Irons [...] (08/24/2020): Added automatically from request for surgery [id number] Assessment & Plan (09/04/2020 8:59 PM CDT): [...] Overview (07/20/2016): Tobacco dependence Atherosclerosis of aorta ([facility]/HCC) 12/27/2015 01/12/2022 Assessment & Plan (09/05/2017 4:47 [...] drink = 0.6 oz pur e alcohol) [facility] Utilities Answer Date Recorded In the past 12 months has e [employer], gas, oil, or water company threatened to [...] often do you attend chur ch or latter day services? Never 03/20/2024 Do you belong to any clubs o r organizations such as advent groups, unions, fraternal or athletic groups, or [...] any time in the past 12 m [facility], were you homeless or living in a longterm (including now)? No 03/20/2024 Personal Safety Answer Date Recorded Have you ever been in or are you currently in a harmful physical or emotional relationship or is someone making you feel afraid or unsafe? Denies 03/20/2024 Comments No Sex and Gender Information Value Date Recorded Sex Assigned at Not on file Legal Sex Female 2:38 AM CHRISTIAN COUNSELOR Gender Identity Not on file Sexual Orientation Not on file Last Filed Vital Signs Vital Sign Reading Time Taken Comments Blood Pressure 115/55 03/26/2024 8:08 AM CHRISTIAN COUNSELOR Pulse 73 03/26/2024 9:20 AM CHRISTIAN COUNSELOR Temperature 36.4 C (97.6 F) 03/26/2024 8:08 AM CHRISTIAN COUNSELOR Respiratory Rate 16 03/26/2024 8:08 AM CHRISTIAN COUNSELOR Oxygen Saturation 96% 03/26/2024 8:57 AM CHRISTIAN COUNSELOR Inhaled Oxygen Concentration - - Weight 79.4 kg (175 lb 0.7 oz) 03/20/2024 2:30 P M CHRISTIAN COUNSELOR Height 177.8 cm (5' 10) 03/20/2024 2:30 PM CHRISTIAN COUNSELOR Body Mass Index 25.12 03/20/2024 2:30 PM CHRISTIAN COUNSELOR Plan of Treatment Scheduled Procedures Name Priority Associated Diagnoses Date/Ti me ESOPHAGOGASTRODUODENOSCOPY Gastroesophageal reflux disease, esophagitis presence not specified Medical Devices Implanted Type Area Coordinator Mining Products Device Identifier Shelf Expiration Date Model / Serial / Lot Stent-09/18/2003 Implanted:Qty: 1 on 09/18/2003 Stent Heart Stent-10/24/2007 Implanted:Qty: 2 on 10/24/2007 Stent Heart [employer]/Orth o Trigen Intertan 11.5mm 42cm Antegrade Intertrochanter Left 125d [id number] - [id number] Implanted:Qty: 1 on 03/20/2024 by Parth Aleman MD at [facility] Left: Hip [employer]/O rtho [id number] 02/08/2032 [id number] / / [id number] [employer]/Orth o Intertan 4.5mm 90mm 85mm Lag Compression Integrate Interlock [id number] - [id number] Implanted:Qty: 1 on 03/20/2024 by Parth Aleman MD at [facility] Left: Hip [employer]/O rtho [id number] 09/11/2033 [id number] / / [id number] Insurance MEDICARE MEDICARE Advance Directives For more information, please contact: [phone] Documents on File Type Date Recorded Patient Cutch Cleaner Expl anation ADVANCE DIRECTIVE 07/06/2017 12:00 AM * Full Code (Latest Code Status on File) Date Activated Date Inactivated Comments 03/19/2024 9:07 PM 03/26/2024 4:16 PM * Full Code Date Activated Date Inactivated Comments 09/20/2020 2:28 PM 10/06/2020 6:26 PM * Full Code Date Activated Date Inactivated Comments 07/04/2017 9:57 PM 09/20/2020 9:30 AM Care Teams Back Maker Relationship Specialty Start Date End Date Eugenia Tejada MD [address] [address] PCP - General Family Medicine 05/31/22 Diane Campo MD Internal Medicine 01/19/20 Israel Mari MD [address] [place] [address] Referring Physician Gastroenterology 08/20/20 [place] [address] [place] [address] Surgeon General Surgery 08/24/20 Raheem Hess MD [address] [place] [address] Referring Physician Nephrology 10/13/21
--- OUTSIDE RECORDS SUMMARY | 2024-10-20 11:09 | XMS_ITS | Clinical Summary ---
Author Organization [facility] Address [address] [place] [address] Care Team Providers Care Pulvi Mixer Operator Name Role Phone Diane Campo MD Unavailable [phone] Israel Mari MD Unavailable [phone] Matthew Jones MD Unavailable [phone] Raheem Hess MD Unavailable [phone] Eugenia Tejada MD Primary Care Provider [...] 04/23/2021 Assessment & Plan (06/13/2021 1:41 AM KENNEL OPERATOR): - chronic, not at goal but improved - somewhat depressed due to current medical/physical condition - also has fibromyalgia - started Cymbalta on last visit with improvement, now at Cymbalta DR 40 mg daily - continue with current therapy Assessment & Plan (03/16/2021 12:10 AM KENNEL OPERATOR): - somewhat depressed due to current medical/physical [...] CDT): - follows with Nephrology - Dr. 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 10/12 Assessment & Plan (12/03/2020 2:59 [...] 15 years - she is not with medical scientific officer at this time - I have seen [...] 15 years - she is not with medical scientific officer at this time - I have seen [...] sent Assessment & Plan (06/13/2021 1:39 AM KENNEL OPERATOR): - chronic, not at goal/worse - follows [...] sent Assessment & Plan (03/04/2021 2:01 PM KENNEL OPERATOR): - chronic, not at goal - not [...] 03/16/2021 Assessment & Plan (03/16/2021 12:18 AM KENNEL OPERATOR): - chronic condition, normalized - check Irons [...] (08/24/2020): Added automatically from request for surgery [id number] Assessment & Plan (09/04/2020 8:59 PM CDT): [...] Overview (07/20/2016): Tobacco dependence Atherosclerosis of aorta ([facility]/HCC) 12/27/2015 01/12/2022 Assessment & Plan (09/05/2017 [...] Back Surgery - (Added by TW Conv) [place] EXPLORATION N/FLWD SURG NECK ARTERY Carotid Artery [...] drink = 0.6 oz pur e alcohol) [facility] Utilities Answer Date Recorded In the past 12 months has [email or web address], gas, oil, or water [employer] threatened to shut off services in your [...] any clubs o r organizations such as sikh groups, unions, fraternal or athletic groups, or [...] any time in the past 12 m [facility], were you homeless or living in a senior living (including now)? No 03/20/2024 Personal Safety Answer Date Recorded Have you ever been in or are you currently in a harmful physical or emotional relationship or is someone making you feel afraid or unsafe? Denies 03/20/2024 Comments No Sex and Gender Information Value Date Recorded Sex Assigned at Not on file Legal Sex Female 2:38 AM KENNEL OPERATOR Gender Identity Not on file Sexual Orientation Not on file Obstetrics History Last Filed Vital Signs Vital Sign Reading Time Taken Comments Blood Pressure 115/55 03/26/2024 8:08 AM KENNEL OPERATOR Pulse 73 03/26/2024 9:20 AM KENNEL OPERATOR Temperature 36.4 C (97.6 F) 03/26/2024 8:08 AM KENNEL OPERATOR Respiratory Rate 16 03/26/2024 8:08 AM KENNEL OPERATOR Oxygen Saturation 96% 03/26/2024 8:57 AM KENNEL OPERATOR Inhaled Oxygen Concentration - - Weight 79.4 kg (175 lb 0.7 oz) 03/20/2024 2:30 P M KENNEL OPERATOR Height 177.8 cm (5' 10) 03/20/2024 2:30 PM KENNEL OPERATOR Body Mass Index 25.12 03/20/2024 2:30 PM KENNEL OPERATOR Plan of Treatment Scheduled Procedures Name Priority [...] history exists Medical Devices Implanted Type Area Mica Miner Blasting Device Identifier Shelf Expiration Date Model / Serial / Lot Stent-09/18/2003 Implanted:Qty: 1 on 09/18/2003 Stent Heart Stent-10/24/2007 Implanted:Qty: 2 on 10/24/2007 Stent Heart [employer]/Orth o Trigen Intertan 11.5mm 42cm Antegrade Intertrochanter Left 125d [id number] - [id number] Implanted:Qty: 1 on 03/20/2024 by Parth Aleman MD at [facility] Left: Hip [employer]hew/[employer]/O rtho [id number] 02/08/2032 [id number] / / [id number] [employer]/Orth o Intertan 4.5mm 90mm 85mm Lag Compression Integrate Interlock [id number] - [id number] Implanted:Qty: 1 on 03/20/2024 by Parth Aleman MD at [facility] Left: Hip [employer]/O rtho [id number] 09/11/2033 [id number] / / [id number] Insurance MEDICARE MEDICARE Advance Directives For more information, please contact: [phone] Documents on File Type Date Recorded Patient Legal Document Assistant Expl anation ADVANCE DIRECTIVE 07/06/2017 12:00 AM * Full Code (Latest Code Status on File) Date Activated Date Inactivated Comments 03/19/2024 9:07 PM 03/26/2024 4:16 PM * Full Code Date Activated Date Inactivated Comments 09/20/2020 2:28 PM 10/06/2020 6:26 PM * Full Code Date Activated Date Inactivated Comments 07/04/2017 9:57 PM 09/20/2020 9:30 AM Care Teams Pulvi Mixer Operator Relationship Specialty Start Date End Date Eugenia Tejada MD [address] [address] PCP - General Family Medicine 05/31/22 Diane Campo MD Internal Medicine 01/19/20 [place] [address] [place] [address] Referring Physician Gastroenterology 08/20/20 [place] [address] [place] [address] Surgeon General Surgery 08/24/20 Raheem Hess MD [address] [place] [address] Referring Physician Nephrology 10/13/21
--- OUTSIDE RECORDS SUMMARY | 2024-10-20 11:09 | XMS_ITS | Clinical Summary ---
Author Organization [facility] Address [address] [place] [address] Care Team Providers Care Power Cleaner Operator Name Role Phone Unavailable Primary Care Provider Unavailabl e Source Comments [facility],non-owned Affiliates and Associated Physician Practices is amultiple site organization consisting of ambulatory clinics and hospital sitesin [place], [place], [place] and [place]. This disclosure is being madepursuant to the Care Everywhere program and may not contain all information available regarding this patient. Last updated 18.[facility] [employer] Social History Tobacco Use Types Packs/Day Years Used Date Smoking Tobacco: Never Assessed Comments Unknown Sex and Gender Information Value Date Recorded Sex Assigned at Not on file Legal Sex Female 6:06 AM MACHINE PRECISION ENGRAVER Gender Identity Not on file Sexual Orientation [...]
--- OUTSIDE RECORDS SUMMARY | 2024-10-20 11:09 | XMS_ITS | Clinical Summary ---
Author Organization [facility] Address [address] [place] [address] Care Team Providers Care Medical Screener Name Role Phone Ryna Cuevas MD Primary Care Provider Allergies Active Allergy Reactions Criticality Noted Date Comments Meperidine Other (see comment) Medium 08/02/2020 Confusion Morphine Itching Low 08/02/2020 Social History Tobacco Use Types Packs/Day Years Used Date Smoking Tobacco: Never Assessed Comments Unknown Sex and Gender Information Value Date Recorded Sex Assigned at Not on file Legal Sex Female 9:02 AM CDT Gender Identity Not on file Sexual Orientation Not on file Plan of Treatment Health Maintenance Due Date Last Done Comments DTaP, Tdap and Td Vaccines ( 1 - Tdap) 1961 Pneumococcal Vaccine: 50+ Ye ars (1 of 1 - PCV) 01/15/1992 Zoster Vaccines (1 of 2) 01/15/1992 Annual Medicare Wellness Visit 2007 Dexa Scan (General) 2007 RSV Immunization or 60+ Years (1 - 1-dose 75+ series) 2017 COVID-19 Vaccine (2023-2 5 season) 2023 Meningococcal B Vaccine Aged Out No l onger eligible based on patient's age to complete this topic Meningococcal Vaccine Aged Out No adi neela eligible based on patient's age to complete this topic RSV Immunizations Under 20 Months Aged Out No longer eligible based on patient's age to complete this topic Insurance MEDICARE Care Teams Medical Screener Relationship Specialty Start Date End Date Ryan Cuevas MD [facility] [place] [address] PCP - General INTERNAL MEDICINE 08/02/20
--- OUTSIDE RECORDS SUMMARY | 2024-10-20 11:09 | XMS_ITS | Continuity of Care Document ---
Author Organization [facility] Address [address] [place] [address] [address] [place] [address] Phone Care Team Providers Care Historic Interpreter Name Role Phone Bonilla OD, Hair Unavailable [...] Diagnoses Date Provider Providers Copied on Encounter [facility], [address] [place] [address] [address], [place], [place], [id number], tel:[phone] [facility] [place] No Information Mar- 0-200 8 Bonilla OD Hair. [address] [place] , [address], [place], [address], [place]. tel:[phone] [facility], [address] [place] [address] [address], [place], [place], [id number], tel:[phone] [facility] [place] No Information Mar-2 6-200 7 Bonilla OD Hair. [address], [place], [address], [place]. tel:[phone] Family History Family Member Type Diagnosis Age At Onset No Information Payers Payer name Insurance type Covered republican ID Authoriza tion(s) Medicare [employer] [id number] Social History Type Description Quantity Date Captured [...]
[2024-10-20 11:48] LABS: Anion Gap 11 mmol/L (4-12); Blood Urea Nitrogen 21 mg/dL (7-17); Calcium 9.1 mg/dL (8.4-10.2); Carbon Dioxide 24 mmol/L (22-30); Chloride 94 mmol/L (98-107); Estimated Glomerular Filt Rate 29; Glucose 100 mg/dL (65-110); Potassium 3.9 mmol/L (3.4-5.0); Sodium 129 mmol/L (137-145)
== END 2024-10-20 10:59 | disposition home or self-care (01) ==
PROVIDERS: PCP Family Medicine; Visit Provider Family Medicine
DX: E87.1 Hypo-osmolality and hyponatremia (principal); E87.6 Hypokalemia
CPT/HCPCS: 36415; 80048

== ENCOUNTER 2024-11-08 12:20 | Outpatient (CLI) | payer MEDICARE, SELFPAY ==
--- OUTSIDE RECORDS SUMMARY | 2024-11-08 12:24 | XMS_ITS | Clinical Summary ---
Author Organization [facility] Address [address] [place] [address] Care Team Providers Care Casting Machine Set Up Operator Name Role Phone Unavailable Primary Care Provider Unavailabl e Source Comments [facility],non-owned Affiliates and Associated Physician Practices is amultiple site organization consisting of ambulatory clinics and hospital sitesin [place], [place], [place] and [place]. This disclosure is being madepursuant to the Care Everywhere program and may not contain all information available regarding this patient. Last updated 18.[facility] [employer] Social History Tobacco Use Types Packs/Day Years Used Date Smoking Tobacco: Never Assessed Comments Unknown Sex and Gender Information Value Date Recorded Sex Assigned at Not on file Legal Sex Female 6:06 AM WARP TESTER Gender Identity Not on file Sexual Orientation [...] season) 2023 DEPRESSION SCREENING 04/16/2024 INFLUENZA VACCINE (#1) 2024 HEPATITIS B VACCINE Aged Out No [...]
--- OUTSIDE RECORDS SUMMARY | 2024-11-08 12:25 | XMS_ITS | Clinical Summary ---
Author Organization [facility] Address [address] [place] [address] Care Team Providers Care Pot Lining Supervisor Name Role Phone Ryan Cuevas MD Primary Care Provider Allergies Active [...] complete this topic Insurance MEDICARE Care Teams Pot Lining Supervisor Relationship Specialty Start Date End Date Ryan Cuevas MD [facility] [place] [address] PCP - General INTERNAL MEDICINE 08/02/20
--- OUTSIDE RECORDS SUMMARY | 2024-11-08 12:25 | XMS_ITS | Continuity of Care Document ---
Author Organization [facility] Address [address] [place] [address] [address] [place] [address] Phone Care Team Providers Care Automotive Brake Specialist Name Role Phone Bonilla OD, Hair Unavailable [...] Diagnoses Date Provider Providers Copied on Encounter [facility], [address] [place] [address] [address], [place], [place], [id number], tel:[phone] [facility] [place] [facility] [place] No Information Mar-3 0-200 8 Bonilla OD Hair. [address] [facility] [place] , [address], [place], [address], [place]. tel:[phone] [facility], [address] [place] [address] [address], [place], [place], [id number], tel:[phone] [facility] [place] [facility] [place] No Information Mar-2 6-200 7 Bonilla OD Hair. [address] [facility] [address], [place], [address], [place]. tel:[phone] Family History Family Member Type Diagnosis Age At Onset No Information Payers Payer name Insurance type Covered democrat ID Authoriza tion(s) Medicare [facility] [id number] Social History Type Description Quantity Date Captured [...]
--- OUTSIDE RECORDS SUMMARY | 2024-11-08 12:25 | XMS_ITS | Clinical Summary ---
Author Organization [facility] Address [address] [place] [address] Care Team Providers Care Security Assistant Name Role Phone Diane Campo MD Unavailable [phone] Israel Mari MD Unavailable [phone] Matthew Jones MD Unavailable [phone] Raheem Hess MD Unavailable [phone] Eugenia Tejada MD Primary Care Provider [...] 04/23/2021 Assessment & Plan (06/13/2021 1:41 AM SALESPERSON SURGICAL APPLIANCES): - chronic, not at goal but improved - somewhat depressed due to current medical/physical condition - also has fibromyalgia - started Cymbalta on last visit with improvement, now at Cymbalta DR 40 mg daily - continue with current therapy Assessment & Plan (03/16/2021 12:10 AM SALESPERSON SURGICAL APPLIANCES): - somewhat depressed due to current medical/physical [...] 12/27/2015 Assessment & Plan (03/16/2021 12:16 AM SALESPERSON SURGICAL APPLIANCES): - noted in the past - most [...] 11/04/2021 Assessment & Plan (03/16/2021 12:06 AM SALESPERSON SURGICAL APPLIANCES): - stable and well controled - currently [...] her hx of smoking Coronary arteriosclerosis in [place] artery 10/12 Assessment & Plan (12/03/2020 2:59 [...] 15 years - she is not with metal control worker at this time - I have seen [...] 15 years - she is not with metal control worker at this time - I have seen [...] sent Assessment & Plan (06/13/2021 1:39 AM SALESPERSON SURGICAL APPLIANCES): - chronic, not at goal/worse - follows [...] sent Assessment & Plan (03/04/2021 2:01 PM SALESPERSON SURGICAL APPLIANCES): - chronic, not at goal - not [...] 03/16/2021 Assessment & Plan (03/16/2021 12:18 AM SALESPERSON SURGICAL APPLIANCES): - chronic condition, normalized - check Irons [...] (08/24/2020): Added automatically from request for surgery [id number] Assessment & Plan (09/04/2020 8:59 PM CDT): [...] Overview (07/20/2016): Tobacco dependence Atherosclerosis of aorta ([facility]/HCC) 12/27/2015 01/12/2022 Assessment & Plan (09/05/2017 4:47 [...] Back Surgery - (Added by TW Conv) [place] EXPLORATION N/FLWD SURG NECK ARTERY Carotid Artery [...] drink = 0.6 oz pur e alcohol) [facility] Utilities Answer Date Recorded In the past 12 months has [employer], gas, oil, or water [facility] threatened to shut off services in your [...] often do you attend chur ch or rastafarian services? Never 03/20/2024 Do you belong to any clubs o r organizations such as anglican groups, unions, fraternal or athletic groups, or [...] any time in the past 12 m [facility], were you homeless or living in a residential (including now)? No 03/20/2024 Personal Safety Answer Date Recorded Have you ever been in or are you currently in a harmful physical or emotional relationship or is someone making you feel afraid or unsafe? Denies 03/20/2024 Comments No Sex and Gender Information Value Date Recorded Sex Assigned at Not on file Legal Sex Female 2:38 AM SALESPERSON SURGICAL APPLIANCES Gender Identity Not on file Sexual Orientation Not on file Obstetrics History Last Filed Vital Signs Vital Sign Reading Time Taken Comments Blood Pressure 115/55 03/26/2024 8:08 AM SALESPERSON SURGICAL APPLIANCES Pulse 73 03/26/2024 9:20 AM SALESPERSON SURGICAL APPLIANCES Temperature 36.4 C (97.6 F) 03/26/2024 8:08 AM SALESPERSON SURGICAL APPLIANCES Respiratory Rate 16 03/26/2024 8:08 AM SALESPERSON SURGICAL APPLIANCES Oxygen Saturation 96% 03/26/2024 8:57 AM SALESPERSON SURGICAL APPLIANCES Inhaled Oxygen Concentration - - Weight 79.4 kg (175 lb 0.7 oz) 03/20/2024 2:30 P M SALESPERSON SURGICAL APPLIANCES Height 177.8 cm (5' 10) 03/20/2024 2:30 PM SALESPERSON SURGICAL APPLIANCES Body Mass Index 25.12 03/20/2024 2:30 PM SALESPERSON SURGICAL APPLIANCES Plan of Treatment Scheduled Procedures Name Priority Associated Diagnoses Date/Ti me ESOPHAGOGASTRODUODENOSCOPY Gastroesophageal reflux disease, esophagitis presence not specified Health Maintenance Due Date Last Done Comments Osteoporosis Screening-Bone Density Scan 1942 DTaP/Tdap/Td Vaccine (1 - Tdap) 1953 Hepatitis B Screening 01/15/1960 Zoster Vaccine (1 of 2) 01/15/1992 Well Visit 65+ 02/21/2020 02/20/2019 Depression Screening 01/12/2023 01/12/2022, 09/27/2021, 05/31/2021, Additional history exists Influenza Vaccine (#1) 2024 , 12/19/2019, 01/16/2019, Additional history exists Fall Risk Assessment 03/26/2025 03/26/2024, 01/12/2022, 09/27/2021, Additional history exists Pneumococcal vaccine 65+ Completed 019, 12/27/2015, 04/16/2001, Additional history exists Medical Devices Implanted Type Area Artificial Flower Maker Device Identifier Shelf Expiration Date Model / Serial / Lot Stent-09/18/2003 Implanted:Qty: 1 on 09/18/2003 Stent Heart Stent-10/24/2007 Implanted:Qty: 2 on 10/24/2007 Stent Heart [employer]/Orth o Trigen Intertan 11.5mm 42cm Antegrade Intertrochanter Left 125d [id number] - [id number] Implanted:Qty: 1 on 03/20/2024 by Parth Aleman MD at [facility] Left: Hip [employer]/O rtho [id number] 02/08/2032 [id number] / / [id number] [employer]/Orth o Intertan 4.5mm 90mm 85mm Lag Compression Integrate Interlock [id number] - [id number] Implanted:Qty: 1 on 03/20/2024 by Parth Aleman MD at [facility] Left: Hip [employer]/O rtho [id number] 09/11/2033 [id number] / / [id number] Insurance MEDICARE MEDICARE Advance Directives For more information, please contact: [phone] Documents on File Type Date Recorded Patient Family Practice Physician Expl anation ADVANCE DIRECTIVE 07/06/2017 12:00 AM * Full Code (Latest Code Status on File) Date Activated Date Inactivated Comments 03/19/2024 9:07 PM 03/26/2024 4:16 PM * Full Code Date Activated Date Inactivated Comments 09/20/2020 2:28 PM 10/06/2020 6:26 PM * Full Code Date Activated Date Inactivated Comments 07/04/2017 9:57 PM 09/20/2020 9:30 AM Care Teams Security Assistant Relationship Specialty Start Date End Date Eugenia Tejada MD [address] [address] PCP - General Family Medicine 05/31/22 Diane Campo MD Internal Medicine 01/19/20 [place] [address] [place] [address] Referring Physician Gastroenterology 08/20/20 [place] [address] [place] [address] Surgeon General Surgery 08/24/20 Raheem Hess MD [address] [place] [address] Referring Physician Nephrology 10/13/21
--- OUTSIDE RECORDS SUMMARY | 2024-11-08 12:25 | XMS_ITS | Referral Summary ---
Author Organization [facility] Address [address] [place] [address] Care Team Providers Care Commercial Real Estate Sales Manager Name Role Phone Diane Campo MD Unavailable [phone] Israel Mari MD Unavailable [phone] Matthew Jones MD Unavailable [phone] Raheem Hess MD Unavailable [phone] Eugenia Tejada MD Primary Care Provider [...] 04/23/2021 Assessment & Plan (06/13/2021 1:41 AM COMMUNITY SERVICES MANAGER): - chronic, not at goal but improved - somewhat depressed due to current medical/physical condition - also has fibromyalgia - started Cymbalta on last visit with improvement, now at Cymbalta DR 40 mg daily - continue with current therapy Assessment & Plan (03/16/2021 12:10 AM COMMUNITY SERVICES MANAGER): - somewhat depressed due to current medical/physical [...] 12/27/2015 Assessment & Plan (03/16/2021 12:16 AM COMMUNITY SERVICES MANAGER): - noted in the past - most [...] 11/04/2021 Assessment & Plan (03/16/2021 12:06 AM COMMUNITY SERVICES MANAGER): - stable and well controled - currently [...] her hx of smoking Coronary arteriosclerosis in [place] artery 10/12 Assessment & Plan (12/03/2020 2:59 [...] 15 years - 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 with graphics specialist at this time - I have seen [...] 15 years - she is not with graphics specialist at this time - I have seen [...] sent Assessment & Plan (06/13/2021 1:39 AM COMMUNITY SERVICES MANAGER): - chronic, not at goal/worse - follows [...] sent Assessment & Plan (03/04/2021 2:01 PM COMMUNITY SERVICES MANAGER): - chronic, not at goal - not [...] 03/16/2021 Assessment & Plan (03/16/2021 12:18 AM COMMUNITY SERVICES MANAGER): - chronic condition, normalized - check Irons [...] (08/24/2020): Added automatically from request for surgery [id number] Assessment & Plan (09/04/2020 8:59 PM CDT): [...] Overview (07/20/2016): Tobacco dependence Atherosclerosis of aorta ([facility]/HCC) 12/27/2015 01/12/2022 Assessment & Plan (09/05/2017 4:47 [...] drink = 0.6 oz pur e alcohol) [facility] Utilities Answer Date Recorded In the past 12 months has e [employer], gas, oil, or water company threatened to [...] any clubs o r organizations such as amish groups, unions, fraternal or athletic groups, or [...] any time in the past 12 m [facility], were you homeless or living in a correction (including now)? No 03/20/2024 Personal Safety Answer Date Recorded Have you ever been in or are you currently in a harmful physical or emotional relationship or is someone making you feel afraid or unsafe? Denies 03/20/2024 Comments No Sex and Gender Information Value Date Recorded Sex Assigned at Not on file Legal Sex Female 2:38 AM COMMUNITY SERVICES MANAGER Gender Identity Not on file Sexual Orientation Not on file Last Filed Vital Signs Vital Sign Reading Time Taken Comments Blood Pressure 115/55 03/26/2024 8:08 AM COMMUNITY SERVICES MANAGER Pulse 73 03/26/2024 9:20 AM COMMUNITY SERVICES MANAGER Temperature 36.4 C (97.6 F) 03/26/2024 8:08 AM COMMUNITY SERVICES MANAGER Respiratory Rate 16 03/26/2024 8:08 AM COMMUNITY SERVICES MANAGER Oxygen Saturation 96% 03/26/2024 8:57 AM COMMUNITY SERVICES MANAGER Inhaled Oxygen Concentration - - Weight 79.4 kg (175 lb 0.7 oz) 03/20/2024 2:30 P M COMMUNITY SERVICES MANAGER Height 177.8 cm (5' 10) 03/20/2024 2:30 PM COMMUNITY SERVICES MANAGER Body Mass Index 25.12 03/20/2024 2:30 PM COMMUNITY SERVICES MANAGER Plan of Treatment Scheduled Procedures Name Priority Associated Diagnoses Date/Ti me ESOPHAGOGASTRODUODENOSCOPY Gastroesophageal reflux disease, esophagitis presence not specified Medical Devices Implanted Type Area Development Technical Lead Device Identifier Shelf Expiration Date Model / Serial / Lot Stent-09/18/2003 Implanted:Qty: 1 on 09/18/2003 Stent Heart Stent-10/24/2007 Implanted:Qty: 2 on 10/24/2007 Stent Heart [employer]hew/Rich[employer]/Orth o Trigen Intertan 11.5mm 42cm Antegrade Intertrochanter Left 125d [id number] - [id number] Implanted:Qty: 1 on 03/20/2024 by Parth Aleman MD at [facility] Left: Hip Re[employer] Nephew/Rich[employer]/O rtho [id number] 02/08/2032 [id number] / / [id number] Rehman [employer] Nephew/Richco/Orth o Intertan 4.5mm 90mm 85mm Lag Compression Integrate Interlock [id number] - [id number] Implanted:Qty: 1 on 03/20/2024 by Parth Aleman MD at [facility] Left: Hip Re[employer] Nephew/Richco/O rtho [id number] 09/11/2033 [id number] / / [id number] Insurance MEDICARE MEDICARE Advance Directives For more information, please contact: [phone] Documents on File Type Date Recorded Patient Credit Cashier Expl anation ADVANCE DIRECTIVE 07/06/2017 12:00 AM * Full Code (Latest Code Status on File) Date Activated Date Inactivated Comments 03/19/2024 9:07 PM 03/26/2024 4:16 PM * Full Code Date Activated Date Inactivated Comments 09/20/2020 2:28 PM 10/06/2020 6:26 PM * Full Code Date Activated Date Inactivated Comments 07/04/2017 9:57 PM 09/20/2020 9:30 AM Care Teams Commercial Real Estate Sales Manager Relationship Specialty Start Date End Date Eugenia Tejada MD [address] [address] PCP - General Family Medicine 05/31/22 Diane Campo MD Internal Medicine 01/19/20 Israel Mari MD [address] [place] [address] Referring Physician Gastroenterology 08/20/20 [place] [address] [place] [address] Surgeon General Surgery 08/24/20 Raheem Hess MD [address] [place] [address] Referring Physician Nephrology 10/13/21
[2024-11-08 13:08] LABS: Anion Gap 9 mmol/L (4-12); Blood Urea Nitrogen 13 mg/dL (7-17); Calcium 9.3 mg/dL (8.4-10.2); Carbon Dioxide 24 mmol/L (22-30); Chloride 100 mmol/L (98-107); Estimated Glomerular Filt Rate 33; Glucose 101 mg/dL (65-110); Potassium 4.1 mmol/L (3.4-5.0); Sodium 133 mmol/L (137-145)
== END 2024-11-08 12:21 | disposition home or self-care (01) ==
LOC: ANHLAB 12:22
PROVIDERS: PCP Family Medicine; Visit Provider Family Medicine
DX: E87.1 Hypo-osmolality and hyponatremia (principal)
CPT/HCPCS: 36415; 80048

== ENCOUNTER 2024-11-12 15:39 | Emergency (ER) | payer MEDICARE, SELFPAY ==
--- NOTE | ~2024-11-12 | XR_ITS ---
EXAMINATION: XR chest 2V 11/12/2024 16:06 INDICATION: Dyspnea PROCEDURE: 2 view chest COMPARISON: Comparison to multiple prior studies sequentially, with oldest reviewed study dated 08/2011. FINDINGS: The lungs are clear. The lungs are hyperinflated which is consistent with, but not diagnost ic of chronic obstructive pulmonary disease. The cardiomediastinal silhouette is within normal limit s. There are no pleural effusions. There is no pneumothorax suspected. IMPRESSION: 1: NO ACUTE CARDIOPULMONARY DISEASE. Reviewed, dictated and finalized at location B.
--- OUTSIDE RECORDS SUMMARY | 2024-11-12 15:41 | XMS_ITS | Continuity of Care Document ---
Author Organization [facility] Address [address] [place] [address] [address] [place] [address] Phone Care Team Providers Care Defect Repairer Glassware Name Role Phone Bonilla OD, Hair Unavailable [...] Diagnoses Date Provider Providers Copied on Encounter [facility], [address] [place] [address] [address], [place], [place], [id number], tel:[phone] [facility] [place] No Information Mar- 0-200 8 Bonilla OD Hair. [address] [facility] [place] , [address], [place], [address], [place]. tel:[phone] [facility], [address] [place] [address] [address], [place], [place], [id number], tel:[phone] [facility] [place] No Information Mar- 6-200 7 Bonilla OD Hair. [address] [facility] [address], [place], [address], [place]. tel:[phone] Family History Family Member Type Diagnosis Age At Onset No Information Payers Payer name Insurance type Covered libertarian ID Authoriza tion(s) Medicare [facility] [id number] Social History Type Description Quantity Date Captured [...]
--- OUTSIDE RECORDS SUMMARY | 2024-11-12 15:41 | XMS_ITS | Clinical Summary ---
Author Organization [facility] Address [address] [place] [address] Care Team Providers Care Farmworker Grain Name Role Phone Diane Campo MD Unavailable [phone] Israel Mari MD Unavailable [phone] Matthew Jones MD Unavailable [phone] Raheem Hess MD Unavailable [phone] Eugenia Teajda MD Primary Care Provider + Allergies Active [...] 04/23/2021 Assessment & Plan (06/13/2021 1:41 AM PRESCHOOL DISABILITY TEACHER): - chronic, not at goal but improved - somewhat depressed due to current medical/physical condition - also has fibromyalgia - started Cymbalta on last visit with improvement, now at Cymbalta DR 40 mg daily - continue with current therapy Assessment & Plan (03/16/2021 12:10 AM PRESCHOOL DISABILITY TEACHER): - somewhat depressed due to current medical/physical [...] noted on recent hospitalization - [place] RUQ 6/20/21 - IMPRESSION: 1. 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 Continue present management. 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 Continue present management. Resolved Problems Problem Noted Date Diagnosed Date Resolved Date Anemia 12/03/2020 03/16/2021 Assessment & Plan (03/16/2021 12:18 AM PRESCHOOL DISABILITY TEACHER): - chronic condition, normalized - check Irons [...] (08/24/2020): Added automatically from request for surgery [id number] Assessment & Plan (09/04/2020 8:59 PM CDT): [...] Overview (07/20/2016): Tobacco dependence Atherosclerosis of aorta (CMS/HCC) 12/27/2015 01/12/2022 Assessment & Plan (09/05/2017 4:47 [...] Back Surgery - (Added by TW Conv) [place] EXPLORATION N/FLWD SURG NECK ARTERY Carotid Artery [...] stitched in recovery CAD (coronary artery disease) 2008 s/ p stents GERD (gastroesophageal reflux disease) [...] drink = 0.6 oz pur e alcohol) [facility] Utilities Answer Date Recorded In the past 12 months has [employer] electric, gas, oil, or water [employer] threatened to shut off services in your [...] often do you attend chur ch or hoahaoism services? Never 03/20/2024 Do you belong to any clubs o r organizations such as jewish groups, unions, fraternal or athletic groups, or [...] any time in the past 12 m [facility], were you homeless or living in a jail (including now)? No 03/20/2024 Personal Safety Answer Date Recorded Have you ever been in or are you currently in a harmful physical or emotional relationship or is someone making you feel afraid or unsafe? Denies 03/20/2024 Comments No Sex and Gender Information Value Date Recorded Sex Assigned at Not on file Legal Sex Female 2:38 AM PRESCHOOL DISABILITY TEACHER Gender Identity Not on file Sexual Orientation Not on file Obstetrics History Last Filed Vital Signs Vital Sign Reading Time Taken Comments Blood Pressure 115/55 03/26/2024 8:08 AM PRESCHOOL DISABILITY TEACHER Pulse 73 03/26/2024 9:20 AM PRESCHOOL DISABILITY TEACHER Temperature 36.4 C (97.6 F) 03/26/2024 8:08 AM PRESCHOOL DISABILITY TEACHER Respiratory Rate 16 03/26/2024 8:08 AM PRESCHOOL DISABILITY TEACHER Oxygen Saturation 96% 03/26/2024 8:57 AM PRESCHOOL DISABILITY TEACHER Inhaled Oxygen Concentration - - Weight 79.4 kg (175 lb 0.7 oz) 03/20/2024 2:30 P M PRESCHOOL DISABILITY TEACHER Height 177.8 cm (5' 10) 03/20/2024 2:30 PM PRESCHOOL DISABILITY TEACHER Body Mass Index 25.12 03/20/2024 2:30 PM PRESCHOOL DISABILITY TEACHER Plan of Treatment Scheduled Procedures Name Priority [...] history exists Medical Devices Implanted Type Area Costumed Character Entertainer Device Identifier Shelf Expiration Date Model / Serial / Lot Stent-09/18/2003 Implanted:Qty: 1 on 09/18/2003 Stent Heart Stent-10/24/2007 Implanted:Qty: 2 on 10/24/2007 Stent Heart [employer]/Orth o Trigen Intertan 11.5mm 42cm Antegrade Intertrochanter Left 125d [id number] - [id number] Implanted:Qty: 1 on 03/20/2024 by Parth Aleman MD at [facility] Left: Hip Re[employer]hew/Rich[employer]/O rtho [id number] 02/08/2032 [id number] / / [id number] Re[employer]hew/Rich[employer]/Orth o Intertan 4.5mm 90mm 85mm Lag Compression Integrate Interlock [id number] - [id number] Implanted:Qty: 1 on 03/20/2024 by Parth Aleman MD at [facility] Left: Hip [employer]hew/Richco/O rtho [id number] 09/11/2033 [id number] / / [id number] Insurance MEDICARE MEDICARE MEDICARE MEDICARE Advance Directives For more information, please contact: [phone] Documents on File Type Date Recorded Patient Registration Coordinator Expl anation ADVANCE DIRECTIVE 07/06/2017 12:00 AM * Full Code (Latest Code Status on File) Date Activated Date Inactivated Comments 03/19/2024 9:07 PM 03/26/2024 4:16 PM * Full Code Date Activated Date Inactivated Comments 09/20/2020 2:28 PM 10/06/2020 6:26 PM * Full Code Date Activated Date Inactivated Comments 07/04/2017 9:57 PM 09/20/2020 9:30 AM Care Teams Farmworker Grain Relationship Specialty Start Date End Date Eugenia Tejada MD [address] [address] PCP - General Family Medicine 05/31/22 Diane Campo MD Internal Medicine 01/19/20 Israel Mari MD [address] [place] [address] Referring Physician Gastroenterology 08/20/20 Matthew Jones MD [facility] [place] [address] Surgeon General Surgery 08/24/20 Raheem Hess MD [address] [address] Referring Physician Nephrology 10/13/21
--- OUTSIDE RECORDS SUMMARY | 2024-11-12 15:41 | XMS_ITS | Clinical Summary ---
Author Organization [facility] Address [address] [place] [address] Care Team Providers Care Resolution Specialist Name Role Phone Unavailable Primary Care Provider Unavailabl e Source Comments [facility],non-owned Affiliates and Associated Physician Practices is amultiple site organization consisting of ambulatory clinics and hospital sitesin [place], [place], [place] and [place]. This disclosure is being madepursuant to the Care Everywhere program and may not contain all information available regarding this patient. Last updated 18.[facility] [employer] Social History Tobacco Use Types Packs/Day Years Used Date Smoking Tobacco: Never Assessed Comments Unknown Sex and Gender Information Value Date Recorded Sex Assigned at Not on file Legal Sex Female 6:06 AM BLACK TOP RAKER Gender Identity Not on file Sexual Orientation [...]
--- OUTSIDE RECORDS SUMMARY | 2024-11-12 15:41 | XMS_ITS | Referral Summary ---
Author Organization [facility] Address [address] [place] [address] Care Team Providers Care Helper Coordinator Name Role Phone Diane Campo MD Unavailable [phone] Israel Mari MD Unavailable [phone] Matthew Jones MD Unavailable [phone] Raheem Hess MD Unavailable [phone] Eugenia Tejada MD Primary Care Provider [...] 04/23/2021 Assessment & Plan (06/13/2021 1:41 AM DIRECTOR OF DIAGNOSTIC IMAGING): - chronic, not at goal but improved - somewhat depressed due to current medical/physical condition - also has fibromyalgia - started Cymbalta on last visit with improvement, now at Cymbalta DR 40 mg daily - continue with current therapy Assessment & Plan (03/16/2021 12:10 AM DIRECTOR OF DIAGNOSTIC IMAGING): - somewhat depressed due to current medical/physical [...] 12/27/2015 Assessment & Plan (03/16/2021 12:16 AM DIRECTOR OF DIAGNOSTIC IMAGING): - noted in the past - most [...] 11/04/2021 Assessment & Plan (03/16/2021 12:06 AM DIRECTOR OF DIAGNOSTIC IMAGING): - stable and well controled - currently [...] her hx of smoking Coronary arteriosclerosis in [place] artery 10/12 Assessment & Plan (12/03/2020 2:59 [...] 15 years - 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 Mgcowan Assessment & Plan (09/05/2017 4:46 PM CDT): Duong. Continue present management. 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 Continue present management. Resolved Problems Problem Noted Date Diagnosed Date Resolved Date Anemia 12/03/2020 03/16/2021 Assessment & Plan (03/16/2021 12:18 AM DIRECTOR OF DIAGNOSTIC IMAGING): - chronic condition, normalized - check Irons [...] (08/24/2020): Added automatically from request for surgery [id number] Assessment & Plan (09/04/2020 8:59 PM CDT): [...] drink = 0.6 oz pur e alcohol) [facility] Utilities Answer Date Recorded In the past 12 months has th e electric, gas, oil, or water company threatened to [...] often do you attend chur ch or mu-ism services? Never 03/20/2024 Do you belong to any clubs o r organizations such as mandaeism groups, unions, fraternal or athletic groups, or [...] any time in the past 12 m [facility], were you homeless or living in a [...] on file Legal Sex Female 2:38 AM DIRECTOR OF DIAGNOSTIC IMAGING Gender Identity Not on file Sexual Orientation Not on file Last Filed Vital Signs Vital Sign Reading Time Taken Comments Blood Pressure 115/55 03/26/2024 8:08 AM DIRECTOR OF DIAGNOSTIC IMAGING Pulse 73 03/26/2024 9:20 AM DIRECTOR OF DIAGNOSTIC IMAGING Temperature 36.4 C (97.6 F) 03/26/2024 8:08 AM DIRECTOR OF DIAGNOSTIC IMAGING Respiratory Rate 16 03/26/2024 8:08 AM DIRECTOR OF DIAGNOSTIC IMAGING Oxygen Saturation 96% 03/26/2024 8:57 AM DIRECTOR OF DIAGNOSTIC IMAGING Inhaled Oxygen Concentration - - Weight 79.4 kg (175 lb 0.7 oz) 03/20/2024 2:30 P M DIRECTOR OF DIAGNOSTIC IMAGING Height 177.8 cm (5' 10) 03/20/2024 2:30 PM DIRECTOR OF DIAGNOSTIC IMAGING Body Mass Index 25.12 03/20/2024 2:30 PM DIRECTOR OF DIAGNOSTIC IMAGING Plan of Treatment Scheduled Procedures Name Priority Associated Diagnoses Date/Ti wy ESOPHAGOGASTRODUODENOSCOPY Gastroesophageal reflux disease, esophagitis presence not specified Medical Devices Implanted Type Area Physical Therapy Instructor Device Identifier Shelf Expiration Date Model / Serial / Lot Stent-09/18/2003 Implanted:Qty: 1 on 09/18/2003 Stent Heart Stent-10/24/2007 Implanted:Qty: 2 on 10/24/2007 Stent Heart [employer]/Orth o Trigen Intertan 11.5mm 42cm Antegrade Intertrochanter Left 125d [id number] - [id number] Implanted:Qty: 1 on 03/20/2024 by Parth Aleman MD at [facility] Left: Hip Rehman [employer] Nephew/Richco/O rtho [id number] 02/08/2032 [id number] / / [id number] Rehman [employer] Nephew/Richco/Orth o Intertan 4.5mm 90mm 85mm Lag Compression Integrate Interlock [id number] - [id number] Implanted:Qty: 1 on 03/20/2024 by Parth Aleman MD at [facility] Left: Hip Rehman [employer] Nephew/Richco/O rtho [id number] 09/11/2033 [id number] / / [id number] Insurance MEDICARE MEDICARE MEDICARE MEDICARE Advance Directives For more information, please contact: [phone] Documents on File Type Date Recorded Patient Copper Miner Blasting Expl anation ADVANCE DIRECTIVE 07/06/2017 12:00 AM * Full Code (Latest Code Status on File) Date Activated Date Inactivated Comments 03/19/2024 9:07 PM 03/26/2024 4:16 PM * Full Code Date Activated Date Inactivated Comments 09/20/2020 2:28 PM 10/06/2020 6:26 PM * Full Code Date Activated Date Inactivated Comments 07/04/2017 9:57 PM 09/20/2020 9:30 AM Care Teams Helper Coordinator Relationship Specialty Start Date End Date Eugenia Tejada MD [address] [address] PCP - General Family Medicine 05/31/22 Diane Campo MD Internal Medicine 01/19/20 [place] [address] [place] [address] Referring Physician Gastroenterology 08/20/20 [place] [address] [place] [address] Surgeon General Surgery 08/24/20 aRheem Hess MD [address] [place] [address] Referring Physician Nephrology 10/13/21
--- OUTSIDE RECORDS SUMMARY | 2024-11-12 15:41 | XMS_ITS | Clinical Summary ---
Author Organization [facility] Address [address] [place] [address] Care Team Providers Care Rubber Tire Curer Name Role Phone Ryan Cuevas MD Primary [...] complete this topic Insurance MEDICARE Care Teams Rubber Tire Curer Relationship Specialty Start Date End Date Ryan Cuevas MD [facility] [place] [address] PCP - General INTERNAL MEDICINE 08/02/20
[2024-11-12 15:45] VITALS: BP 205/102; PULSE 77; RESP 16; TEMP 36.6; O2SAT 98
--- OUTSIDE RECORDS SUMMARY | 2024-11-12 15:50 | XMS_ITS | Continuity of Care Document ---
Author Organization [facility] Address [address] [place] [address] [address] [place] [address] Phone Care Team Providers Care Instrument Technologist Name Role Phone Bonilla OD, Hair Unavailable [...] Diagnoses Date Provider Providers Copied on Encounter [facility], [address] [place] [address] [address], [place], [place], [id number], tel:[phone] [facility] [place] No Information Mar- 0-200 8 Bonilla OD Hair. [address] [facility] [place] , [address], [place], [address], [place]. tel:[phone] [facility], [address] [place] [address] [address], [place], [place], [address], tel:[phone] [facility] [place] No Information Mar- 6-200 7 Bonilla OD Hair. [address] [facility] [address], [place], [address], [place]. tel:[phone] Family History Family Member Type Diagnosis Age At Onset No Information Payers Payer name Insurance type Covered libertarian ID Authoriza tion(s) Medicare [facility] [id number] Social History Type Description Quantity Date Captured [...]
--- NOTE | 2024-11-12 15:51 | ED_ITS ---
HPI - General Adult General Chief complaint: Extremity Problem,Nontraumatic Stated complaint: htn, foot swelling Time Seen by Provider: 11/12/24 15:42 History of Present Illness HPI narrative: Patient is an 84-year-old female who presents ER with swelling of her legs. Her Lasix was discontinued 1 week ago and then she developed edema over last 3 days. She called her PCP who then represcribed Lasix for her. No orthopnea. No chest pain. No dyspnea. Denies any pain in her legs. Related Data Home Medications ?Medication ?Instructions ?Recorded ?Confirmed ?Last Taken ?Type acetaminophen 650 mg tablet 650 mg PO Q6H PRN Insomnia 02/05/22 10/02/24 Unknown History albuterol sulfate 90 mcg/actuation 2 puff inhalation QID PRN 02/05/22 10/02/24 Unknown History aerosol inhaler (Ventolin HFA) Shortness Of Breath aspirin 81 mg tablet,delayed 81 mg PO DAILY 02/05/22 11/12/24 11/11/24 History release fluticasone propionate 50 2 spray intranasal PRN PRN 02/05/22 10/02/24 Unknown History mcg/actuation nasal Congestion spray,suspension polyvinyl alcohol-povidone (PF) 1 drp EACH EYE QID 02/05/22 10/02/24 Unknown History 1.4 %-0.6 % eye drops in a dropperette (Refresh Classic (PF)) vit C 250 mg-vit E 90 mg-zinc 40 1 tablet PO BID 02/05/22 10/02/24 Unknown History mg-copper 1 [id number] capsule (PreserVision AREDS-2) cholecalciferol (vitamin D3) 25 25 mcg PO DAILY 10/09/24 Unknown History mcg (1,000 unit) capsule mecobalamin (vitamin B12) 1,000 1,000 mcg PO DAILY 10/09/24 Unknown History mcg chewable tablet Allergies Allergy/AdvReac Type Severity Reaction Status Date / Time meperidine (From Demerol) Allergy Severe Swelling Verified 11/12/24 16:21 of Lip/Tongue/Throat morphine Allergy Mild Itching Verified 11/12/24 16:21 Review of Systems 2 Review of Systems: All systems reviewed & are unremarkable except as noted in HPI and below Constitutional: Constitutional: Reports no additional constitutional complaints ENT: Reports system reviewed and no additional complaints, except as documented Cardiovascular: Cardiovascular: Reports no additional cardiovascular complaints Respiratory: Respiratory: Reports no additional respiratory complaints Musculoskeletal: Musculoskeletal: Reports no additional musculoskeletal complaints PMFSH Past Medical History Medical History Chest wall pain following surgery Stage 3 chronic kidney disease High cholesterol History of high blood pressure Pulmonary emboli Anxiety COVID-19 Surgical History Surgical History History of left-sided carotid endarterectomy History of abdominal aortic aneurysm (AAA) repair Social History Social History Social History: Patient states she is a former nicotine smoker. She began around 20 years old, and quit around 75 years old. Smoking packs per day: 1 Smoking cigarettes per day: 20.0 Years smoked: 57 Smoking pack-years: 57.00 Smoking status: Former smoker (quit 10 years ago) Tobacco type: cigarettes Alcohol intake: never Substance use: never Substance use type: does not use Do You Feel Safe in your Home?: Yes Lack of Transportation: No Lack of Food: Sometimes True Current Housing: I Have Housing Concerned About Future Housing: No Difficulty Paying Gas/Electric Bills: No Difficulty Paying for Meds: No Currently Unemployed: No Education: Trade/Vocational Certificate Difficulty w/ Childcare or Family Care: No Exam 2 Narrative: GENERAL: Well-appearing, well-nourished, and in no acute distress. HEAD: Normocephalic, atraumatic. ENT: Mucous membranes moist. CHEST: Clear to auscultation. No respiratory distress. HEART: Regular rate and rhythm. Normal peripheral pulses. EXTREMITIES: Normal range of motion. 2+ edema. SKIN: Warm, dry, no rash. NEURO: Alert and oriented x3. PSYCH: Normal mood and affect. Course Course Emergency Course: Patient resting comfortably. Informed of results. May restart Lasix. Her blood pressure was initially elevated the 200s but then went down to 150 and 170 respectively without any treatment. She has evening medication to take for blood pressure management at home. Vital Signs Vital signs: Vital Signs Temperature 97.8 F 11/12/24 15:45 Pulse Rate 77 11/12/24 15:45 Respiratory Rate 16 11/12/24 15:45 Blood Pressure 205/102 H 11/12/24 15:45 Pulse Oximetry 98 11/12/24 15:45 Oxygen Delivery Room Air 11/12/24 15:45 Temperature 97.8 F 11/12/24 15:45 Pulse Rate 74 11/12/24 16:32 Respiratory Rate 20 11/12/24 16:32 Blood Pressure 159/82 H 11/12/24 16:32 Pulse Oximetry 100 11/12/24 16:32 Oxygen Delivery Room Air 11/12/24 15:45 Medical Decision Making Vital Signs Vital Signs: Vital Signs Temperature 97.8 F 11/12/24 15:45 Pulse Rate 77 11/12/24 15:45 Respiratory Rate 16 11/12/24 15:45 Blood Pressure 205/102 H 11/12/24 15:45 Pulse Oximetry 98 11/12/24 15:45 Oxygen Delivery Room Air 11/12/24 15:45 Temperature 97.8 F 11/12/24 15:45 Pulse Rate 74 11/12/24 16:32 Respiratory Rate 20 11/12/24 16:32 Blood Pressure 159/82 H 11/12/24 16:32 Pulse Oximetry 100 11/12/24 16:32 Oxygen Delivery Room Air 11/12/24 15:45 Lab Data 11/12/24 15:58 11/12/24 15:58 Labs: Lab Results 11/12/24 Range/Units 15:58 WBC 5.7 (4.5-10.0) K/mm3 RBC 3.67 L (4.2-5.4) M/mm3 Hgb 11.7 L (12.0-15.0) g/dL Hct 36.0 L (37.0-47.0) % MCV 98.1 (80-100) fl MCH 31.9 (26-34) pg MCHC 32.5 (32-36) g/dl RDW 13.8 (11.5-14.5) % Plt Count 146 L (150-375) k/mm3 MPV 11.0 H (7.4-10.4) fl Immature Gran % (Auto) 0.0 (0-0.5) % Neut % (Auto) 54.1 (45.5-73.1) % Lymph % (Auto) 32.7 (18.3-44.2) % Mclean % (Auto) 9.6 H (2.6-8.5) % Eos % (Auto) 2.7 (0-4.4) % Baso % (Auto) 0.9 (0.2-1.2) % Lymph # (Auto) 1.85 (0.9-3.2) K/mm3 Mclean # (Auto) 0.5 (0.1-0.6) K/mm3 Eos # (Auto) 0.2 (0-0.3) K/mm3 Baso # (Auto) 0.1 (0.0-0.1) K/mm3 Abs Immat Gran (auto) 0.00 (0.00-0.031) K/mm3 Absolute Neuts (auto) 3.1 (1.3-6.7) K/mm3 Absolute Nucleated RBC 0.000 (0.0-0.012) K/mm3 Nucleated RBC % 0.0 (0.0-0.2) % Sodium 132 L (137-145) mmol/L Potassium 3.5 (3.4-5.0) mmol/L Chloride 96 L (98-107) mmol/L Carbon Dioxide 25 (22-30) mmol/L Anion Gap 11 (4-12) mmol/L BUN 10 (7-17) mg/dL Creatinine 1.46 H (0.7-1.0) mg/dL Estim Creat Clear Calc 29 ml/min Estimated GFR 34 L (59 - ) Glucose 106 (65-110) mg/dL Calcium 9.4 (8.4-10.2) mg/dL Total Bilirubin 0.6 (0.2-1.3) mg/dL AST 28 (14-36) U/L ALT 13 (6-35) U/L Alkaline Phosphatase 82 (38-126) U/L NT-Pro-B Natriuret Pep 580 H (19.9-100) pg/mL Total Protein 7.9 (6.3-8.2) g/dL Albumin 4.5 (3.5-5.1) g/dL Discharge Plan Discharge Clinical Impression: Leg edema, Chronic hypertension Patient Disposition: Home Condition: Stable Instructions: Leg Edema (ED), Hypertension (ED) Additional Instructions: Return to the ER i fyou have chest pain with shortness of breath, you cannot keep down food/water, or you have other concerns. Patient Language: Spanish Prescriptions: No Action fluticasone propionate 50 mcg/actuation spray,suspension 2 spray INTRANASAL PRN PRN (Reason: Congestion) aspirin [Adult Aspirin EC Low Strength] 81 mg Tablet,Delayed Release (Dr/Ec) 81 mg PO DAILY acetaminophen 650 mg Tablet 650 mg PO Q6H PRN (Reason: Insomnia) albuterol sulfate [Ventolin HFA] 90 mcg/actuation Hfa Aerosol Inhaler 2 puff INHALATION QID PRN (Reason: Shortness Of Breath) Refresh Classic (PF) 1.4-0.6 % Dropperette 1 drp EACH EYE QID PreserVision AREDS-2 250-90-40-1 mg Capsule 1 tablet PO BID nitroglycerin 0.4 mg tablet, sublingual 0.4 mg sublingual PRN PRN (Reason: Chest Pain) Qty: 20 3RF cyclobenzaprine 10 mg tablet 10 mg PO Q12H PRN (Reason: muscle spasm) Qty: 60 1RF alprazolam 0.25 mg tablet 0.25 mg PO DAILY PRN (Reason: anxiety) Qty: 30 5RF Spiriva with HandiHaler 18 mcg capsule, w/inhalation device 1 cap INHALATION DAILY Qty: 90 1RF zolpidem 10 mg tablet 10 mg PO QHS Qty: 30 4RF rosuvastatin 20 mg tablet See Rx Instructions .ROUTE .COMPLEX Qty: 90 1RF Dose Instruction: TAKE 1 TABLET BY MOUTH DAILY Rx Instructions: TAKE 1 TABLET BY MOUTH DAILY lisinopril 20 mg tablet 20 mg PO BID Qty: 180 1RF cholecalciferol (vitamin D3) 25 mcg (1,000 unit) capsule 25 mcg PO DAILY mecobalamin (vitamin B12) 1,000 mcg tablet,chewable 1,000 mcg PO DAILY pantoprazole 20 mg tablet,delayed release (DR/EC) 20 mg PO QAM Qty: 90 1RF Patient Comments: Decrease in dosing metoprolol tartrate 50 mg tablet 50 mg PO BID Qty: 180 1RF isosorbide mononitrate 60 mg tablet extended release 24 hr 60 mg PO DAILY Qty: 90 3RF furosemide [Lasix] 40 mg tablet 40 mg PO QAM Qty: 30 0RF Follow-up/Referrals: Eugenia Tejada MD [Primary Care Provider] - 1 Week
[2024-11-12 16:03] LABS: Hematocrit 36.0 % (37.0-47.0); Hemoglobin 11.7 g/dL (12.0-15.0); Immature Granulocyte Percent A 0.0 % (0-0.5); Lymphocytes Absolute Auto 1.85 K/mm3 (0.9-3.2); Mean Corpuscular HGB Conc 32.5 g/dl (32-36); Mean Corpuscular Hemoglobin 31.9 pg (26-34); Mean Corpuscular Volume 98.1 fl (80-100); Nucleated Red Blood Cells Absolute Auto 0.000 K/mm3 (0.0-0.012); Nucleated Red Blood Cells Perc 0.0 % (0.0-0.2); Platelet Count Result 146 k/mm3 (150-375); Red Blood Count 3.67 M/mm3 (4.2-5.4); White Blood Count 5.7 K/mm3 (4.5-10.0)
[2024-11-12 16:16] LABS: Alanine Aminotransferase 13 U/L (6-35); Albumin Level 4.5 g/dL (3.5-5.1); Alkaline Phosphatase 82 U/L (38-126); Anion Gap 11 mmol/L (4-12); Aspartate Amino Transferase 28 U/L (14-36); Bilirubin,Total 0.6 mg/dL (0.2-1.3); Blood Urea Nitrogen 10 mg/dL (7-17); Calcium 9.4 mg/dL (8.4-10.2); Carbon Dioxide 25 mmol/L (22-30); Chloride 96 mmol/L (98-107); Estimated CRCL calculation 29 ml/min; Estimated Glomerular Filt Rate 34; Glucose 106 mg/dL (65-110); Potassium 3.5 mmol/L (3.4-5.0); Sodium 132 mmol/L (137-145); Total Protein 7.9 g/dL (6.3-8.2)
[2024-11-12 16:25] LABS: NT Pro B Type Natriuretic Pept 580 pg/mL (19.9-100)
[2024-11-12 16:32] VITALS: BP 159/82; PULSE 74; RESP 20; O2SAT 100
[2024-11-12 17:30] VITALS: BP 171/87; PULSE 73; RESP 20; O2SAT 98
== END 2024-11-12 17:30 | disposition home or self-care (01) ==
PROVIDERS: Emergency Provider Emergency Medicine; PCP Family Medicine
DX: R60.0 Localized edema (principal); I12.9 Hypertensive chronic kidney disease with stage 1 through stage 4 chronic kidney disease, or unspecified chronic kidney disease; N18.30 Chronic kidney disease, stage 3 unspecified; E78.00 Pure hypercholesterolemia, unspecified; F41.9 Anxiety disorder, unspecified; Z86.711 Personal history of pulmonary embolism; Z87.891 Personal history of nicotine dependence; Z79.82 Long term (current) use of aspirin; Z79.899 Other long term (current) drug therapy
CPT/HCPCS: 36415; 71046; 80053; 83880; 85025; 99283

== ENCOUNTER 2024-12-04 14:23 | Outpatient (CLI) | payer MEDICARE, SELFPAY ==
--- OUTSIDE RECORDS SUMMARY | 2024-12-03 10:00 | XMS_ITS | Encounter Summary ---
Author Organization [facility] Healthcare Address [address] [place] [address] Care Team Providers Care Agricultural Production Engineer Name Role Phone Diane Campo MD Unavailable [phone] Israel Mari MD Unavailable [phone] Matthew Jones MD Unavailable [phone] Raheem Hess MD Unavailable [phone] Eugenia Tejada MD Primary Care Provider + Pinky Levin RN Unavailable [phone] Reason for Visit * Auth/Cert (Routine) Specialty Diagnoses / Procedures Referred By Contac t Referred To Contact Referral ID Status Reason Start Date Expiration Date Visits Re quested Visits Authorized [id number] 1 1 Encounter Details Date Type Department Care Team (Latest Contact Info) Description 12/03/2024 10:00 AM CDT Home Care Visit [facility] [address] [address] [address] [place] [address] Elissa Vanessa, PT PT OASIS START OF CARE Social History Tobacco Use Types Packs/Day Years Used Date Smoking Tobacco: Former Cigarettes 0.8 60 1 959 - 2017 Smokeless Tobacco: Never Comments:quit 4 years ago Alcohol Use Standard Drinks/Week Comments Not Currently 0 (1 standard drink = 0.6 oz pur e alcohol) OASIS D0700: Social Isolation Answer Da te Recorded Frequency of experiencing loneliness or isolatio n Rarely 12/03/2024 OASIS A1250: Transportation Answer Date Recorded Lack of Transportation (Medical) No 12/03/2024 Lack of Transportation (Non-Medical) No 12/03/2024 Patient Unable or Declines to Respond No 12/03/2024 OASIS B1300: Health Literacy Answer Momo e Recorded Frequency of needing help to read materials from doctor or pharmacy Often 12/03/2024 AUDIT-C Answer Date Recorded Q1: How often [...] staff should administer the PHQ-9) 0 01/12/2022 PRAPARE - Transportation Answer Date Re corded [...] any time in the past 12 m [facility], were you homeless or living in a long-term (including now)? No 03/20/2024 Social Connection and Isolation Panel Answer Date Recorded In a typical week, how many times do you talk on the phone with family, friends, or neighbors? Three times a week 12/03/2024 How often do you get togethe r with friends or relatives? More than three times a week 12/03/2024 How often do you attend chur ch or episcopal services? Never 12/03/2024 Do you belong to any clubs o r organizations such as orthodoxy groups, unions, fraternal or athletic groups, or school groups? Yes 12/03/2024 How often do you attend meet ings of the clubs or organizations you belong to? More than 4 times per year 12/03/2024 Are you , , di vorced, , never , or living with a partner? 12/03/2024 Overall Financial Resource Strain (CARDIA) Answe r Date Recorded How hard is it for you to pa y for the very basics like food, housing, medical care, and heating? Not hard at all 12/03/2024 Hunger Vital Sign Answer Date Recorded Within the past 12 months, y ou worried that your food would run out before you got the money to buy more. Never true 12/04/19 25 Within the past 12 months, t he food you bought just didn't last and you didn't have money to get more. Never true 12/03/2024 PRAPARE - Transportation Answer Date Re corded In the past 12 months, has l ack of transportation kept you from medical appointments or from getting medications? No 11/15 In the past 12 months, has l ack of transportation kept you from meetings, work, or from getting things needed for daily living? No 12/03/2024 Housing Stability Vital Sign Answer Momo e Recorded In the last 12 months, was t here a time when you were not able to pay the mortgage or rent on time? No 12/03/2024 In the past 12 months, how m any times have you moved where you were living? 0 12/03/2024 At any time in the past 12 m [facility], were you homeless or living in a long-term (including now)? No 12/03/2024 [facility] Utilities Answer Date Recorded In the past 12 months has th e electric, gas, oil, or water company threatened to shut off services in your home? No 12/03/2024 Personal Safety Answer Date Recorded Have you ever been in or are you currently in a harmful physical or emotional relationship or is someone making you feel afraid or unsafe? Yes 11/28/2024 Comments No Sex and Gender Information Value Date Recorded Sex Assigned at Not on file Legal Sex Female 2:38 AM APPELLATE CONFEREE Gender Identity Not on file Sexual Orientation Not on file documented as of this encounter Last Filed Vital Signs Vital Sign Reading Time Taken Comments Blood Pressure 108/62 12/03/2024 11:18 AM CDT Pulse 82 12/03/2024 11:18 AM CDT Temperature 36.1 C (97 F) 12/03/2024 11:18 AM CDT Respiratory Rate 18 12/03/2024 11:18 AM CDT Oxygen Saturation 96% 12/03/2024 11:18 AM CDT Inhaled Oxygen Concentration - - Weight - - Height - - Body Mass Index - - documented in this encounter Miscellaneous Notes * Home Health/Infusion SBAR - Elissa Vanessa, PT - 12/03/2024 10:32 AM CDT SITUATION Focus of Care: Colitis Caregivers available: Pt lives alone in ground floor apartment. Her brother lives in the same apartment complex BACKGROUND Pertinent Medical History/Hospitalizations: [facility] 11/27 - 12/02/24 after mechanical fall, found to be hypotensive with severe L sided colitis. Pt has skin tears to R and L forearms. PMHx of L hip fx s/p ORIF 03/2024, hx diverticulitis c/b abscess/sigmoid stricture/perforation s/p sigmoidectomy , repaired AAA ', CKD3b, CAD s/p stents, HTN, COPD, depression. Pt reports her brother transports her to appointments. Prior Level of Functioning: Independent, amb in her apartment w no device, used SBQC for gait outside of home Current Living Conditions/Safety Hazards: sidewalk from apartment to access parking lot with 2 steps, without handrails. Pt reports she was [facility] and [facility] ASSESSMENT Abnormal assessment findings: Patient presents with weakness, unsteady gait, high fall risk, limiting ability to safely perform transfers, ambulation, and other functional mobility tasks. Current Function:Patient completes bed mobility with standby assistPatient completes supine to/from sit with standby assistPatient completes sit to/from stands with contact guard assist Patient completes ambulation x 20 ft in home with contact guard assist Patient demonstrates deficits in strength as evidenced by L hip flex 3+/5Patient demonstrates deficits in balance as evidenced by TUG score 41 s Patient demonstrates deficits in activity tolerance as evidenced by pt reports of significant fatigue since hospital DC, pt reports Bonny done nothing but sleep Patient is unable to independently access community due to the above impairments. Patient will benefit from skilled home health physical therapy to address deficits in order to decrease the risk of falls and hospitalization and increase safety and independence with ADL and functional mobility. Medication Issues: No severe interactions noted, however pt refuses to produce medication bottles during visit. Pt is agreeable to SN evaluation and instruction on meds Re-hospitalization risk: moderate Barriers to care/social drivers: No caregiver present during SOC visit, pt states her brother will be able to assist as needed and can be present during home care visits for instruction as needed RECOMMENDATIONS POC confirmed with : Eugenia Tejada Plan for my discipline: 1w4 Other disciplines ordered/recommended: OT, SN, CITY MANAGER Supply/HME/equipment needs or issues: Pt has all needed equipment in the home Follow ups needed: Pt scheduled to follow up with Dr. Tejada 12/04 * Quality Review - Merary Malagon, COMMUNITY RELATIONS LIAISON - 12/03/2024 10:32 AM CDT M0150 corrected. documented in this encounter Plan of Treatment Scheduled Procedures Name Priority Associated Diagnoses Date/Ti ga ESOPHAGOGASTRODUODENOSCOPY Gastroesophageal reflux disease, esophagitis presence not specified documented as of this encounter Goals Goal Patient Goal Type Associated Problems Recent Progress Patient-Stated? Author Patient will have kept initial appointment and will show signs of improvement to baseline Care Plan Initial Follow-Up Appointment No Pinky Levin RN documented as of this encounter Visit Diagnoses Not on filedocumented in this encounter Additional Health Concerns Active Problems Noted Date Diagnosed Date Initial Follow-Up Appointment 12/03/2024 documented as of this encounter Home Health Visit - Care Plan Visit Details Visit Type -PT OASIS Start o f Care Discipline -Physical Therapy Problems Problem Description Start Date Status Goals Interve ntions Pressure Prevention Disciplines: Skilled Disciplines Pressure Prevention 12/03/2024 Active 1 goal linked to scheduled/documen carter intervention 1 goal intervention scheduled/documen carter in this visit Monitor patient's vital signs every home health visit Disciplines: Skilled Disciplines, SN, PT, OT, COMMUNITY RELATIONS LIAISON, MANAGER LINUX Monitor patient's vital signs every home health visit. 12/03/2024 Active 1 goal linked to scheduled/documen carter intervention 1 goal intervention scheduled/documen carter in this visit Infection Prevention Disciplines: Skilled Disciplines Infection Prevention 12/03/2024 Active 1 goal linked to scheduled/documen carter intervention 3 goal interventions scheduled/documen carter in this visit Fall Precautions/Safe ty Concerns Disciplines: Skilled Disciplines Fall precautions and general safety 12/03/2024 Active 1 goal linked to scheduled/documen carter intervention 1 goal intervention scheduled/documen carter in this visit Pain Disciplines: Core Disciplines Alteration in comfort 12/03/2024 Active 1 goal linked to scheduled/documen carter intervention 1 goal intervention scheduled/documen carter in this visit Wound Education and Management Disciplines: Core Disciplines Knowledge deficit related to wound management and risk of infection. 12/03/2024 Active 1 goal linked to scheduled/documen carter intervention 1 goal intervention scheduled/documen carter in this visit Wound Care Disciplines: Core Disciplines Wound care needed Site 2 Wound 11/27/2024 Skin Tear Forearm Anterior;Left 12/03/2024 Active 1 goal linked to scheduled/documen carter intervention 1 goal intervention scheduled/documen carter in this visit Wound Care Disciplines: Core Disciplines Wound care needed Site 4 Wound 11/28/2024 Skin Tear Arm Anterior;Right;U pper 12/03/2024 Active 1 goal linked to scheduled/documen carter intervention 1 goal intervention scheduled/documen carter in this visit PT Chronic Condition Management Disciplines: Physical Therapy PT Chronic Condition Management 12/03/2024 Active - 1 problem intervention scheduled/documen carter in this visit PT Impaired Functional Mobility Disciplines: Physical Therapy Impaired functional mobility 12/03/2024 Active - 4 problem interventions scheduled/documen carter in this visit Goals Goal Associated Problem Outcome Goal Met? Visit Notes Prevent development of pressure injuries Description: The patient/caregiver will understand and adhere to pressure prevention interventions within 3 weeks Pressure Prevention No Measure vital signs during every home health visit during episode of care Description: Home shoe salesperson to measure vital signs during every home health visit during episode of care. Monitor patient's vital signs every home health visit No Verbalize signs of infection Description: Patient/caregiver will demonstrate knowledge of infection prevention strategies by verbalizing signs and symptoms of infection. Infection Prevention No Demonstrate fall and safety precautions Description: Patient/caregiver maintains safe home environment as evidenced by remaining free from falls, injury due to falls, demonstrating safety precautions, and identifying strategies to reduce falls by 01/31/25 Fall Precautions/Safety Concerns No Report that pain has been reduced or controlled Description: Patient/caregiver/family will verbalize satisfaction with the patients level of pain and symptom control. Pain No Knowledgeable of Wound Management Description: Patient/caregiver will be knowledgeable on management of wound and when to seek medical attention as evidenced by progressive wound healing and patient/caregiver ability to verbalize signs and symptoms to report to physician or Home Health Agency. Patien t will remain free of infection and able to recognize signs of infection as long as alteration in skin integrity exists or until patient is discharged from home health services. Wound Education and Management No Progression towards healing Description: Wound show progression towards healing by 01/31/25 Wound Care No Progression towards healing Description: Wound show progression towards healing by 01/31/25 Wound Care No Interventions Intervention Associated Problem/Goal Status Variance Visit Notes Instruct on Pressure Prevention Description: Instruct patient/caregiver on inspecting the skin regularly for signs of impaired skin integrity, repositioning the patient on an individualized schedule according to the patient's tissue tolerance, skin condition, mobility, medical condition, and treatm ent goals. Avoid vigorous massage and emphasize the importance of increasing activity and mobility. Problem:Pressure Prevention Goal:Prevent development of pressure injuries Performed Monitor Vital Signs Description: Monitor blood pressure, pulse, oxygen saturation, respirations Problem:Monitor patient's vital signs every home health visit Goal:Measure vital signs during every home health visit during episode of care Performed Educate Patient on Infection Prevention Description: Instruct patient on signs and symptoms of infection IE: fever, odor, change in color, increased amount of drainage, purulent drainage, warmth. Problem:Infection Prevention Goal:Verbalize signs of infection Performed Aspects of Care Description: Instruct patient/caregiver on universal precautions and home infection control measures Problem:Infection Prevention Goal:Verbalize signs of infection Performed Educate Family on Infection Prevention Description: Instructed family on signs and symptoms of infection IE: fever, odor, change in color, increased amount of drainage, purulent drainage, warmth. Problem:Infection Prevention Goal:Verbalize signs of infection Scheduled High Fall Risk Precautions Description: Instruct patient/caregiver to use proper lighting in all areas, stand/sit up slowly, use appropriate footwear when walking, use proper assistive devices, and to keep pathways clear of cords and clutter to prevent falls. Remove/secure throw rugs. Educate patient on medications and disease processes that increase fall risk, using corrective lenses as prescribed, placing hard to reach items within reach, what to do in the event of a fall and to report any falls to the home health agency. Problem:Fall Precautions/Safety Concerns Goal:Demonstrate fall and safety precautions Performed Instruct on pain management techniques Description: Instruct in pharmacologic and nonpharmacologic pain management techniques. Problem:Pain Goal:Report that pain has been reduced or controlled Performed Educate on Wound Care Management Description: Instruct patient/caregiver on wound management including: ordered wound care, utilizing clean technique, appropriate hand hygiene, and disposal of dressings. Instruct patient/caregiver on nutrition and hydration needs for altered skin integrity, signs an d symptoms of infection and/or wound deterioration to report to home health agency and or physician. Problem:Wound Education and Management Goal:Knowledgeable of Wound Management Scheduled Perform dressing change Description: Wound care orders as follows: Patient, caregiver, SN, PT, OT to perform as of 12/03/24: Cleanse wound with wound cleanser or normal saline with each dressing change. Cover with a piece of vaseline gauze, cover with a piece of gauze, wrap with kerlix, secure with tape. Change daily and PRN. BILLY Zur[place] / Dr. Eugenia Tejada 12/03/24 14:45 LGreeling, PT Problem:Wound Care Goal:Progression towards healing Scheduled Perform dressing change Description: Wound care orders as follows: Patient, caregiver, SN, PT, OT to perform as of 12/03/24: Cleanse wound with wound cleanser or normal saline with each dressing change. Cover with a piece of vaseline gauze, cover with a piece of gauze, wrap with kerlix, secure with tape. Change daily and PRN. BILLY Zur[place] / Dr. Eugenia Tejada 12/03/24 14:45 LGreeling, PT Problem:Wound Care Goal:Progression towards healing Scheduled Depression symptom instruction Description: Instruct patient/caregiver in signs and symptoms of depression and how to receive assistance if depression is not controlled. Problem:PT Chronic Condition Management Performed Home Exercise Program (HEP) Description: Instruct patient/caregiver and perform HEP. Problem:PT Impaired Functional Mobility Performed Gait/Stair Training Description: Instruct patient/caregiver and perform gait/stair training. Problem:PT Impaired Functional Mobility Performed Bed Mobility/Transfer Training Description: Instruct patient/caregiver and perform bed mobility/transfer training. Problem:PT Impaired Functional Mobility Performed Therapeutic Exercise Description: Perform therapeutic exercise, progressing as tolerated. Problem:PT Impaired Functional Mobility Performed documented in this encounter Care Teams Agricultural Production Engineer Relationship Specialty Start Date End Date Eugenia Tejada MD [address] [address] PCP - General Family Medicine 05/31/22 Diane Campo MD Internal Medicine 01/19/20 Israel Mari MD [address] [place] [address] Referring Physician Gastroenterology 08/20/20 Matthew Jones MD [address] [place] [address] Surgeon General Surgery 08/24/20 Raheem Hess MD [address] [address] Referring Physician Nephrology 10/13/21 Pinky Levin, RN [address] [facility] [address] [place] [address] SHOP Outpatient Multimedia Technician 12/03/24 documented as of this encounter
--- OUTSIDE RECORDS SUMMARY | 2024-12-04 14:33 | XMS_ITS | Encounter Summary ---
Author Organization [facility] Healthcare Address [address] [place] [address] Care Team Providers Care Territory Outside Sales Manager Name Role Phone Diane Campo MD Unavailable [phone] Israel Mari MD Unavailable [phone] Matthew Jones MD Unavailable [phone] Raheem Hess MD Unavailable [phone] Eugenia Tejada MD Primary Care Provider + Pinky Levin RN Unavailable Reason for Visit * Reason Comments Successfully Completed Encounter Details Date Type Department Care Team (Late st Contact Info) Description 12/03/2024 SHOP/CHAP Initial Outreach [facility] CASE MANAGEMENT [address] [place] [id number] Pinky Levin, RN [address] [facility] [address] [place] [address] Social History Tobacco Use Types Packs/Day Years [...] any time in the past 12 m [facility], were you homeless or living in a fdc (including now)? No 03/20/2024 Social Connection and Isolation Panel Answer Date Recorded In a typical week, how many times do you talk on the phone with family, friends, or neighbors? Three times a week 12/03/2024 How often do you get togethe r with friends or relatives? More than three times a week 12/03/2024 How often do you attend [facility] or yazidism services? Never 12/03/2024 Do you belong to any clubs o r organizations such as muslim groups, unions, fraternal or athletic groups, or [...] money to buy more. Never true 12/04/19 Within the past 12 months, t he [...] any time in the past 12 m [facility], were you homeless or living in a fdc (including now)? No 12/03/2024 [facility] Utilities Answer Date Recorded In the [...] on file Legal Sex Female 2:38 AM BUSINESS ANALYST SALES OPERATIONS Gender Identity Not on file Sexual Orientation Not on file documented as of this encounter Progress Notes * Pinky Levin RN - 12/03/2024 3:54 PM CDT Spoke with patient for initial SHOP outreach. Introduced OCM role and patient consents to SHOP outreach. Patient was admitted to [facility] 11/27-12/02 after mechanical fall, found to be hypotensive with severe L sided colitis. Patient reports feeling fair since discharge. Patient was seen by HH PT today and is on the schedule for HH RN visit tomorrow. Patient has an appointment with her PCP Dr. Tejada tomorrow and confirms she plans to attend. Patient states she has all medications, though she declined detailed medication review at this time since she is seeing her PCP tomorrow, plans to review medications during this appointment. Patient has no questions or concerns at this time. Provided OCM harsh ne number and encouraged patient to call with any needs. documented in this encounter Plan of Treatment [...] Appointment 12/03/2024 documented as of this encounter Care Teams Territory Outside Sales Manager Relationship Specialty Start Date End Date Eugenia Tejada MD [address] [address] PCP - General Family Medicine 05/31/22 Diane Campo MD Internal Medicine 01/19/20 Israel Mari MD [address] [place] [address] Referring Physician Gastroenterology 08/20/20 Matthew Jones MD [address] [place] [address] Surgeon General Surgery 08/24/20 [place] [address] [place] [address] Referring Physician Nephrology 10/13/21 Pinky Levin, RN [address] [facility] [address] [place] [address] SHOP Outpatient Gas Meter Installer 12/03/24 documented as of this encounter
--- OUTSIDE RECORDS SUMMARY | 2024-12-04 14:33 | XMS_ITS | Clinical Summary ---
Author Organization [facility] Address [address] [place] [address] Care Team Providers Care Account Manager Name Role Phone Ryan Cuevas MD Primary [...] complete this topic Insurance MEDICARE Care Teams Account Manager Relationship Specialty Start Date End Date Ryan Cuevas MD [facility] [place] [address] PCP - General INTERNAL MEDICINE 08/02/20
--- OUTSIDE RECORDS SUMMARY | 2024-12-04 14:33 | XMS_ITS | Encounter Summary ---
Author Organization [facility] Healthcare Address [address] [place] [address] Care Team Providers Care Probation Counselor Name Role Phone Diane Campo MD Unavailable [phone] Israel Mari MD Unavailable [phone] Matthew Jones MD Unavailable [phone] Raheem Hess MD Unavailable [phone] Eugenia Tejada MD Primary Care Provider + Pinky Levin RN Unavailable [phone] Reason for Visit * Reason Comments Chart Review Encounter Details Date Type Department Care Team (Late st Contact Info) Description 12/03/2024 [facility]OP/[facility]AP Initial Eligibility Review [facility] OP CASE MANAGEMENT [address] [place] [address] Pinky Levin, RN [address] [facility] [address] [place], [place] [id number] Social History Tobacco Use Types Packs/Day Years [...] time in the past 12 [address] [facility], were you homeless or living in a care home (including now)? No 03/20/2024 Social Connection and Isolation Panel Answer Date Recorded In a typical week, how many times do you talk on the phone with family, friends, or neighbors? Three times a week 12/03/2024 How often do you get togethe r with friends or relatives? More than three times a week 12/03/2024 How often do you attend [facility] or christian services? Never 12/03/2024 Do you belong to any clubs o r organizations such as moravian groups, unions, fraternal or athletic groups, or [...] time in the past 12 m [facility], were you homeless or living in a care home (including now)? 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 Gender Identity Not on file Sexual Orientation Not on file documented as of this encounter Plan of Treatment Scheduled Procedures [...] documented as of this encounter Care Teams Probation Counselor Relationship Specialty Start Date End Date Eugenia Tejada MD [address] [facility] [address] [address] [place] [address] PCP - General Family Medicine 05/31/22 Diane Campo MD Internal Medicine 01/19/20 Israel Mari MD [address] [place] [address] Referring Physician Gastroenterology 08/20/20 Matthew Jones MD [address] [place] [address] Surgeon General Surgery 08/24/20 Raheem Hess MD [address] [facility] [address] [place] [address] Referring Physician Nephrology 10/13/21 Pinky Levin RN [address] [place] [address] 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
--- OUTSIDE RECORDS SUMMARY | 2024-12-04 14:33 | XMS_ITS | Clinical Summary ---
Author Organization [facility] Address [address] [place] [address] Care Team Providers Care Art Model Name Role Phone Unavailable Primary Care Provider Unavailabl e Source Comments [facility],non-owned Affiliates and Associated Physician Practices is amultiple site organization consisting of ambulatory clinics and hospital sitesin [place] and [place]. This disclosure is being madepursuant to the Care Everywhere program and may not contain all information available regarding this patient. 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
--- OUTSIDE RECORDS SUMMARY | 2024-12-04 14:33 | XMS_ITS | Clinical Summary ---
Author Organization [facility] Address [address] [place] [address] Care Team Providers [employer] Name Role Phone Diane Campo MD Unavailable Israel Mari MD Unavailable [phone] Matthew Jones MD Unavailable Raheem Hess MD Unavailable [phone] Eugenia Tejada MD Primary Care Provider + Pinky Levin RN Unavailable Allergies Active Allergy Reactions Criticality Noted Date Comments Adhesive Rash Medium Meperidine Anaphylaxis,Hives,Swelling High Throat swelling Morphine Itching Medium Medications aspirin 81 mg chewable tabletIndications :prevention of thrombosis Take 1 tablet by mouth daily Active fluticasone propionate (FLONASE) 50 mcg/actuation nasal sprayIndications: Allergic Rhinitis Administer 1 spray into each nostril daily as needed for rhinitis Active isosorbide mononitrate ER (IMDUR) 60 mg 24 hr tabletIndications :prevention of anginal pain in coronary artery disease Take 1 tablet by mouth daily Active nitroglycerin (NITROSTAT) 0.4 mg SL tabletIndications :acute episode of anginal pain Place 1 tablet under the tongue every 5 (five) minutes as needed for chest pain Active pantoprazole DR (PROTONIX) 20 mg EC tabletIndications :Treatment of Non-Bleeding Gastric Disorder Take 2 tablets by mouth nightly Active rosuvastatin (CRESTOR) 20 mg tabletIndications :hyperlipidemia Take 1 tablet by mouth nightly Active tiotropium (SPIRIVA) 18 mcg per inhalation capsuleIndication s:Bronchospasm Prevention with COPD Place 1 puff into inhaler and inhale bedtime Active albuterol HFA (PROVENTIL HFA,VENTOLIN HFA,PROAIR HFA) 90 mcg/actuation inhalerIndication s:Chronic Obstructive Pulmonary Disease Inhale 2 puffs every 6 (six) hours as needed for wheezing Active zolpidem (AMBIEN) 10 mg tabletIndications :Sleep-Onset Insomnia Take 1 tablet (10 mg total) by mouth nightly 10 tablet Active acetaminophen (TYLENOL) 325 mg tabletIndications :Pain Take 2 tablets (650 mg total) by mouth every 4 (four) hours as needed for pain Active ondansetron ODT (ZOFRAN-ODT) 4 mg disintegrating tablet Take 1 tablet (4 mg total) by mouth every 6 (six) hours as needed for nausea or vomiting Active oxyCODONE (ROXICODONE) 5 mg immediate release tabletIndications :Pain [The details of the medication are not available because there are pending changes by a home health clinician.] 10 tablet Active Additional Information Patient not taking.Reported on 12/03/2024 polyethylene glycol (MIRALAX) 17 gram packetIndications :constipation Take 1 packet (17 g total) by mouth daily Active cyclobenzaprine (FLEXERIL) 5 mg tabletIndications :Muscle Spasm Take 1 tablet (5 mg total) by mouth every morning for muscle spasms 30 tablet Active lisinopriL (PRINIVIL,ZESTRIL ) 20 mg tabletIndications :hypertension Take 1 tablet (20 mg total) by mouth daily 30 tablet 025 Active ferrous sulfate (Iron, ferrous sulfate,) 325 mg (65 mg of elemental iron) tabletIndications :Iron Deficiency Anemia Take 1 tablet (325 mg total) by mouth daily with breakfast 30 tablet 025 2025 Active metoprolol XL (TOPROL-XL) 100 mg 24 hr tabletIndications :coronary artery disease Take 1 tablet (100 mg total) by mouth daily 90 tablet 025 Active lisinopriL (PRINIVIL,ZESTRIL ) 20 mg tabletIndications :Renovascular hypertension Take 1 tablet (20 mg total) by mouth 2 (two) times a day 180 tablet 022 2024 Discontinued cyclobenzaprine (FLEXERIL) 5 mg tablet Take 1 tablet (5 mg total) by mouth every morning for muscle spasms 024 2024 Discontinued metoprolol tartrate (LOPRESSOR) 50 mg immediate release tablet Take 1 tablet (50 mg total) by mouth 2 (two) times a day 2024 Discontinued(S top Taking at Discharge) polyethylene glycol (MIRALAX) 17 gram packetIndications :constipation Take 1 packet (17 g total) by mouth daily 024 2024 Discontinued(S top Taking at Discharge) metoprolol XL (TOPROL-XL) 100 mg 24 hr tablet Take 1 tablet (100 mg total) by mouth daily 30 tablet 025 2024 Discontinued metoprolol XL (TOPROL-XL) 100 mg 24 hr tablet TAKE 1 TABLET(100 MG) BY MOUTH DAILY 90 tablet 025 2024 Discontinued Active Problems Problem Noted Date Diagnosed Date Sepsis 11/28/2024 Assessment & Plan (12/02/2024 12:28 PM CDT): Pt with hx of inflammatory sigmoid stricture s/p sigmoidectomy 2020. SCAD vs. ischemic colitis leading the differential based on pt's history and presentation. Low c/f infectious colitis at this time. Patient reports indigestion this AM - STOP CTX and flagyl; d/c tomorrow - Fecal calpro pending - Continue PO pantoprazole 40mg BID Assessment & Plan (12/01/2024 11:35 AM CDT): Pt with hx of inflammatory sigmoid stricture s/p sigmoidectomy 2020. SCAD vs. ischemic colitis leading the differential based on pt's history and presentation. Low c/f infectious colitis at this time. Patient reports indigestion this AM - Continue CTX and flagyl; d/c tomorrow - Fecal calpro pending - Continue PO pantoprazole 40mg BID Assessment & Plan (11/30/2024 2:06 PM CDT): Pt with hx of inflammatory sigmoid stricture s/p sigmoidectomy 2020. SCAD vs. ischemic colitis leading the differential based on pt's history and presentation. Low c/f infectious colitis at this time. Patient reports indigestion this AM - Continue CTX and flagyl; d/c tomorrow - Fecal calpro pending - START pantoprazole 40mg IV BID Assessment & Plan (11/29/2024 4:28 PM CDT): Woke up with lethargy, malaise and syncopal event while ambulating. Hypotensive, lactate 2.2, WBC 12, NURA on CKD c/f septic shock. Received Zosyn in the ED. CTAP w severe L sided colitis.Hx of inflammatory sigmoid stricture s/p sigmoidectomy 2020. Path c/w diverticulitis and serositis. Overall, c/f SCAD vs infectious vs ischemic colitis. RPP neg. CXR wnl. No diarrhea so lower suspicion for infectious, will hold off on stool cultures. ESR 45, CRP 190.9. Plan: - continue Cefepime, flagyl - BCx (11/27) - NGTD - Fecal calpro pending - ADAT Assessment & Plan (11/28/2024 5:45 AM CDT): Woke up with lethargy, malaise and syncopal event while ambulating. Hypotensive, lactate 2.2, WBC 12, NURA on CKD c/f septic shock. Received Zosyn in the ED. CTAP w severe L sided colitis. Hx of inflammatory sigmoid stricture s/p sigmoidectomy 2020. Path c/w diverticulitis and serositis. Overall, c/f SCAD vs infectious vs ischemic colitis. RPP neg. CXR wnl. No diarrhea so lower suspicion for infectious, will hold off on stool cultures Plan: -Cefepime, flagyl -Blood cultures drawn, follow -Fecal calpro, ESR/CRP -Telemetry -Consider GI consult in the AM Left sided colitis concernin g for segmental colitis associated with diverticulosis (SCAD) 11/28/2024 Assessment & Plan (12/02/2024 12:28 PM CDT): Pt with hx of inflammatory sigmoid stricture s/p sigmoidectomy 2020. SCAD vs. ischemic colitis leading the differential based on pt's history and presentation. Low c/f infectious colitis at this time. Patient reports indigestion this AM - STOP CTX and flagyl; d/c tomorrow - Fecal calpro pending - Continue PO pantoprazole 40mg BID Assessment & Plan (12/01/2024 11:35 AM CDT): Pt with hx of inflammatory sigmoid stricture s/p sigmoidectomy 2020. SCAD vs. ischemic colitis leading the differential based on pt's history and presentation. Low c/f infectious colitis at this time. Patient reports indigestion this AM - Continue CTX and flagyl; d/c tomorrow - Fecal calpro pending - Continue PO pantoprazole 40mg BID Assessment & Plan (11/30/2024 2:06 PM CDT): Pt with hx of inflammatory sigmoid stricture s/p sigmoidectomy 2020. SCAD vs. ischemic colitis leading the differential based on pt's history and presentation. Low c/f infectious colitis at this time. Patient reports indigestion this AM - Continue CTX and flagyl; d/c tomorrow - Fecal calpro pending - START pantoprazole 40mg IV BID Assessment & Plan (11/29/2024 4:28 PM CDT): Woke up with lethargy, malaise and syncopal event while ambulating. Hypotensive, lactate 2.2, WBC 12, NURA on CKD c/f septic shock. Received Zosyn in the ED. CTAP w severe L sided colitis.Hx of inflammatory sigmoid stricture s/p sigmoidectomy 2020. Path c/w diverticulitis and serositis. Overall, c/f SCAD vs infectious vs ischemic colitis. RPP neg. CXR wnl. No diarrhea so lower suspicion for infectious, will hold off on stool cultures. ESR 45, CRP 190.9. Plan: - continue Cefepime, flagyl - BCx (11/27) - NGTD - Fecal calpro pending - ADAT Assessment & Plan (11/28/2024 5:45 AM CDT): Woke up with lethargy, malaise and syncopal event while ambulating. Hypotensive, lactate 2.2, WBC 12, NURA on CKD c/f septic shock. Received Zosyn in the ED. CTAP w severe L sided colitis. Hx of inflammatory sigmoid stricture s/p sigmoidectomy 2020. Path c/w diverticulitis and serositis. Overall, c/f SCAD vs infectious vs ischemic colitis. RPP neg. CXR wnl. No diarrhea so lower suspicion for infectious, will hold off on stool cultures Plan: -Cefepime, flagyl -Blood cultures drawn, follow -Fecal calpro, ESR/CRP -Telemetry -Consider GI consult in the AM UNRA on CKD 3b 11/28/2024 Assessment & Plan (12/02/2024 8:19 AM CDT): Follows with Nephrology. Cr 1.61 this AM from bl approx 1.5-1.8. -Encourage PO fluids, consider additional IVF if inadequate intake - will hold off on renal ultrasound if no improvement Assessment & Plan (12/01/2024 7:42 AM CDT): Follows with Nephrology. Cr 1.61 this AM from bl approx 1.5-1.8. -Encourage PO fluids, consider additional IVF if inadequate intake - will hold off on renal ultrasound if no improvement Assessment & Plan (11/30/2024 2:06 PM CDT): Follows with Nephrology. Cr 1.61 this AM from bl approx 1.5-1.8. -Encourage PO fluids, consider additional IVF if inadequate intake - will hold off on renal ultrasound if no improvement Assessment & Plan (11/29/2024 4:28 PM CDT): Follows with Nephrology. Cr 2.6 from bl approx 1.5-1.8. Likely prerenal in the setting of septic shock. May have ATN component from severe HoTN with lactate bump. S/p 3L LR with improvement to baseline. FeNa 0.9%, consistent with pre-renal. Plan: -Encourage PO fluids, consider additional IVF if inadequate intake - will hold off on renal ultrasound if no improvement Assessment & Plan (11/28/2024 5:37 AM CDT): Follows with Nephrology. Cr 2.6 from bl approx 1.5-1.8. Likely prerenal in the setting of septic shock May have ATN component from severe HoTN with lactate bump S/p 3L LR Plan: -UA -Urine lytes -Encourage PO fluids, consider additional IVF if inadequate intake -Renal ultrasound if no improvement Coronary artery disease 11/28/2024 Assessment & Plan (12/02/2024 8:19 AM CDT): Remote hx of PCI to left circumflex and LAD AAA repair in 2016 -Continue ASA and rosuvastatin Assessment & Plan (12/01/2024 7:42 AM CDT): Remote hx of PCI to left circumflex and LAD AAA repair in 2016 -Continue ASA and rosuvastatin Assessment & Plan (11/30/2024 2:06 PM CDT): Remote hx of PCI to left circumflex and LAD AAA repair in 2016 -Continue ASA and rosuvastatin Assessment & Plan (11/29/2024 6:19 AM CDT): Remote hx of PCI to left circumflex and LAD AAA repair in 2016 Plan: -Continue ASA and rosuvastatin Assessment & Plan (11/28/2024 3:59 AM CDT): Remote hx of PCI to left circumflex and LAD AAA repair in 2016 Plan: -Continue ASA and rosuvastatin History of abdominal aortic aneurysm (AAA) repai r 11/28/2024 Assessment & Plan (12/02/2024 8:19 AM CDT): Remote hx of PCI to left circumflex and LAD AAA repair in 2016 -Continue ASA and rosuvastatin Assessment & Plan (12/01/2024 7:42 AM CDT): Remote hx of PCI to left circumflex and LAD AAA repair in 2016 -Continue ASA and rosuvastatin Assessment & Plan (11/30/2024 2:06 PM CDT): Remote hx of PCI to left circumflex and LAD AAA repair in 2016 -Continue ASA and rosuvastatin Assessment & Plan (11/29/2024 6:19 AM CDT): Remote hx of PCI to left circumflex and LAD AAA repair in 2016 Plan: -Continue ASA and rosuvastatin Assessment & Plan (11/28/2024 3:59 AM CDT): Remote hx of PCI to left circumflex and LAD AAA repair in 2015 Plan: -Continue ASA and rosuvastatin Insomnia 11/28/2024 Assessment & Plan (12/02/2024 8:19 AM CDT): Home regimen: xanax 0.25 daily prn + zolpidem 10 nightly -Holding xanax -Started zolpidem at reduced dose of 5mg QHS PRN Assessment & Plan (12/01/2024 7:42 AM CDT): Home regimen: xanax 0.25 daily prn + zolpidem 10 nightly -Holding xanax -Started zolpidem at reduced dose of 5mg QHS PRN Assessment & Plan (11/30/2024 2:06 PM CDT): Home regimen: xanax 0.25 daily prn + zolpidem 10 nightly -Holding xanax -Started zolpidem at reduced dose of 5mg QHS PRN Assessment & Plan (11/29/2024 6:19 AM CDT): Home regimen: xanax 0.25 daily prn + zolpidem 10 nightly Plan: -Holding xanax -Started zolpidem at reduced dose of 5mg QHS PRN Assessment & Plan (11/28/2024 3:59 AM CDT): Home regimen: xanax 0.25 daily prn + zolpidem 10 nightly Plan: -Holding xanax -Started zolpidem at reduced dose of 5mg QHS PRN Anxiety 11/28/2024 Assessment & Plan (12/02/2024 8:19 AM CDT): Home regimen: xanax 0.25 daily prn + zolpidem 10 nightly -Holding xanax -Started zolpidem at reduced dose of 5mg QHS PRN Assessment & Plan (12/01/2024 7:42 AM CDT): Home regimen: xanax 0.25 daily prn + zolpidem 10 nightly -Holding xanax -Started zolpidem at reduced dose of 5mg QHS PRN Assessment & Plan (11/30/2024 2:06 PM CDT): Home regimen: xanax 0.25 daily prn + zolpidem 10 nightly -Holding xanax -Started zolpidem at reduced dose of 5mg QHS PRN Assessment & Plan (11/29/2024 6:19 AM CDT): Home regimen: xanax 0.25 daily prn + zolpidem 10 nightly Plan: -Holding xanax -Started zolpidem at reduced dose of 5mg QHS PRN Assessment & Plan (11/28/2024 3:59 AM CDT): Home regimen: xanax 0.25 daily prn + zolpidem 10 nightly Plan: -Holding xanax -Started zolpidem at reduced dose of 5mg QHS PRN Hx of HTN 11/28/2024 Assessment & Plan (12/02/2024 8:19 AM CDT): Home anti-HTN: metoprolol tartrate 50 bid, lisinopril 10 bid, imdur 60. Patient reports sensitive to anti-hypertensives. - Continue lisinopril 10mg once daily - Continue home metoprolol tartrate 50mg BID - HOLD imdur Assessment & Plan (12/01/2024 11:35 AM CDT): Home anti-HTN: metoprolol tartrate 50 bid, lisinopril 10 bid, imdur 60. Patient reports sensitive to anti-hypertensives. - Continue lisinopril 10mg once daily - Continue home metoprolol tartrate 50mg BID - HOLD imdur Assessment & Plan (11/30/2024 2:06 PM CDT): Home anti-HTN: metoprolol 50 bid, lisinopril 10 bid, imdur 60. Patient reports sensitive to anti-hypertensives. - START lisinopril 10mg once daily - Continue home metoprolol 50mg BID - HOLD imdur Assessment & Plan (11/29/2024 4:28 PM CDT): Home anti-HTN: tartrate 50 bid, lisinopril 10 bid, imdur 60 Plan: -continue home tartrate and imdur, resume lisinopril as tolerated Assessment & Plan (11/28/2024 5:23 AM CDT): Home anti-HTN: tartrate 50 bid, lisinopril 10 bid, imdur 60 Plan: -Hold home antihypertensives due to concern for sepsis COPD (chronic obstructive pulmonary disease) Assessment & Plan (12/02/2024 8:19 AM CDT): No formal diagnosis/PFTs 60 pack year smoking hx, quit in 2017 -Continue home incruse daily -Continue home albuterol PRN Assessment & Plan (12/01/2024 7:42 AM CDT): No formal diagnosis/PFTs 60 pack year smoking hx, quit in 2016 -Continue home incruse daily -Continue home albuterol PRN Assessment & Plan (11/30/2024 2:06 PM CDT): No formal diagnosis/PFTs 60 pack year smoking hx, quit in 2017 -Continue home incruse daily -Continue home albuterol PRN Assessment & Plan (11/29/2024 6:19 AM CDT): No formal diagnosis/PFTs 60 pack year smoking hx, quit in 2016 Plan: -Continue home incruse daily -Continue home albuterol PRN Assessment & Plan (11/28/2024 3:59 AM CDT): No formal diagnosis/PFTs 60 pack year smoking hx, quit in 2016 Plan: -Continue home incruse daily -Continue home albuterol PRN Fall, initial encounter 11/27/2024 Assessment & Plan (12/02/2024 12:28 PM CDT): Pt with hx of inflammatory sigmoid stricture s/p sigmoidectomy 2020. SCAD vs. ischemic colitis leading the differential based on pt's history and presentation. Low c/f infectious colitis at this time. Patient reports indigestion this AM - STOP CTX and flagyl; d/c tomorrow - Fecal calpro pending - Continue PO pantoprazole 40mg BID Assessment & Plan (12/01/2024 11:35 AM CDT): Pt with hx of inflammatory sigmoid stricture s/p sigmoidectomy 2020. SCAD vs. ischemic colitis leading the differential based on pt's history and presentation. Low c/f infectious colitis at this time. Patient reports indigestion this AM - Continue CTX and flagyl; d/c tomorrow - Fecal calpro pending - Continue PO pantoprazole 40mg BID Assessment & Plan (11/30/2024 2:06 PM CDT): Pt with hx of inflammatory sigmoid stricture s/p sigmoidectomy 2020. SCAD vs. ischemic colitis leading the differential based on pt's history and presentation. Low c/f infectious colitis at this time. Patient reports indigestion this AM - Continue CTX and flagyl; d/c tomorrow - Fecal calpro pending - START pantoprazole 40mg IV BID Assessment & Plan (11/29/2024 4:28 PM CDT): Woke up with lethargy, malaise and syncopal event while ambulating. Hypotensive, lactate 2.2, WBC 12, NURA on CKD c/f septic shock. Received Zosyn in the ED. CTAP w severe L sided colitis.Hx of inflammatory sigmoid stricture s/p sigmoidectomy 2020. Path c/w diverticulitis and serositis. Overall, c/f SCAD vs infectious vs ischemic colitis. RPP neg. CXR wnl. No diarrhea so lower suspicion for infectious, will hold off on stool cultures. ESR 45, CRP 190.9. Plan: - continue Cefepime, flagyl - BCx (11/27) - NGTD - Fecal calpro pending - ADAT Assessment & Plan (11/28/2024 5:45 AM CDT): Woke up with lethargy, malaise and syncopal event while ambulating. Hypotensive, lactate 2.2, WBC 12, NURA on CKD c/f septic shock. Received Zosyn in the ED. CTAP w severe L sided colitis. Hx of inflammatory sigmoid stricture s/p sigmoidectomy 2020. Path c/w diverticulitis and serositis. Overall, c/f SCAD vs infectious vs ischemic colitis. RPP neg. CXR wnl. 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 Likely Anemia of Chronic Disease. - CTM CBC CHRONIC PROBLEMS Assessment & Plan (12/01/2024 11:35 AM CDT): Hgb 10.2 from 9.04 this AM; baseline 10-11. Likely Anemia of Chronic Disease. - CTM CBC CHRONIC PROBLEMS Assessment & Plan (11/30/2024 2:06 PM CDT): Hgb 9.9 from 10.7 this AM; baseline 10-11. Likely Anemia of Chronic Disease. - CTM CBC CHRONIC PROBLEMS Assessment & Plan (11/29/2024 6:19 AM CDT): Normocytic, MCV 94.1 Hgb 10 on arrival, baseline 10-11. Likely Anemia of Chronic Disease. Plan: -Iron panel/ferritin/B12/folate Assessment & Plan (11/28/2024 3:59 AM CDT): Normocytic, MCV 94.1 Hgb 10 on arrival, baseline 10-11. Likely Anemia of Chronic Disease. Plan: -Iron panel/ferritin/B12/folate Assessment & Plan (03/16/2021 12:18 AM COMPRESSED YE[employer] SUPERVISOR): - chronic condition, normalized - check Irons studies, folate, b12 Lab Results Component Value Date HGB 12.2 02/15/2021 Lab Results Component Value Date IRON 63 12/03/2020 TIBC 265 12/03/2020 FERRITIN 55 12/03/2020 Assessment & Plan (12/03/2020 3:51 PM CDT): - chronic condition - check Irons studies, folate, b12 Lab Results Component Value Date HGB 10.8 (L) 12/03/2020 Heart palpitations 09/04/2020 Assessment & Plan (09/04/2020 [...] if that helps Right posterior capsular opacification 12/25/201 8 Chronic bilateral thoracic back pain 10/26/2017 [...] 12/27/2015 Assessment & Plan (03/16/2021 12:16 AM COMPRESSED YE[employer] SUPERVISOR): - noted in the past - most [...] 11/04/2021 Assessment & Plan (03/16/2021 12:06 AM COMPRESSED YE[employer] SUPERVISOR): - stable and well controled - currently [...] her hx of smoking Coronary arteriosclerosis in [place] artery 10/12 Assessment & Plan (12/03/2020 2:59 [...] 15 years - she is not with choke reamer at this time - I have seen [...] 15 years - she is not with choke reamer at this time - I have seen [...] sent Assessment & Plan (06/13/2021 1:39 AM COMPRESSED YEAST SUPERVISOR): - chronic, not at goal/worse - follows [...] sent Assessment & Plan (03/04/2021 2:01 PM COMPRESSED YE[employer] SUPERVISOR): - chronic, not at goal - not [...] Problem Noted Date Diagnosed Date Resolved Date Status post gastrointestinal surgery 10/21/2020 03/16/2021 Stricture of sigmoid colon (CMS/HCC) 08/24/2020 12/03/2020 Sigmoid stricture (CMS/HCC) 08/24/2020 12/03/2020 Overview (08/24/2020): Added automatically from request for surgery [id number] Assessment & Plan (09/04/2020 8:59 PM CDT): [...] Tobacco dependence Atherosclerosis of aorta ([facility]/HCC) 12/27/2015 01/12/2022 Assessment & Plan (09/05/2017 4:47 PM CDT): Continue aspirin and statin. Breast neoplasm screening status 12/27/2015 09/03/2020 Overview (07/20/2016): Visit for screening mammogram Presence of stent in coronary artery 12/27/2015 09/04/2020 Exhaustion 10/27/2015 09/03/2020 Tobacco use 04/20/2015 10/26/2017 Lumbago 03/23/2015 09/04/2020 Dizziness 12/31/2013 09/03/2020 Disorder of lung 10/09/2013 09/03/2020 Dyslipidemia 10/12/2009 09/03/2020 Encounter for preventive health examination 08/31/2009 09/03/2020 Encounters Date Type Department Care Team Description 12/03/2024 10:00 AM CDT Home Care Visit [address] [place] [address] Elissa Vanessa, PT PT [facility] START OF CARE 12/03/2024 SHOP/CHAP Initial Outreach [facility] OP CASE MANAGEMENT [address] [place] [address] Pinky Levin RN 12/03/2024 Plan of Care Documentation [address] [place] [address] 12/03/2024 SHOP/CHAP Initial Eligibility Review [facility] OP CASE MANAGEMENT [address] [place] [address] Pinky Levin RN 12/02/2024 Telephone [facility] [address] [place] [phone] Estefanía Ma 12/02/2024 Telephone [facility] [address] [place] [address] [address] [place] [phone] Estefanía Ma 11/27/2024 2:39 PM CDT - 12/02/2024 3:55 PM CDT Hospital Encounter [address] [phone] Balaji Costello MD Mudd, Gómez Ramos MD PhD Nicholas , MD Fidel Reyes, MD Ngoc Khan, MD Gustavo Lobo Alvin, MD S/p left hip fracture (Primary Dx); Fall, initial encounter; Syncope, unspecified syncope type; Skin tear of forearm without complication, left, initial encounter; PVC's (premature ventricular contractions); Colitis; Sepsis, due to unspecified organism, unspecified whether acute organ dysfunction present (HCC); Thrombocytopenia; Heart palpitations; Chronic obstructive pulmonary disease, unspecified COPD type (HCC); Renovascular hypertension Discharge Disposition: Discharge to home or self care 11/21/2024 12:55 PM CDT Lab [address] [address] Hyposmolality syndrome (Primary Dx); Mixed hyperlipidemia; Chronic kidney disease (CKD) stage G3b/A1, moderately decreased glomerular filtration rate (GFR) between 30-44 mL/min/1.73 square meter and albuminuria creatinine ratio less than 30 mg/g (HCC) from Last 3 Months Immunizations Immunization Administration Dates Next Due Influenza, Quadrivalent, Hig h Dose, Preservative Free, Intrr 12/19/2019 Influenza, Trivalent, High D ose, Split, Preservative Free, Intramuscular 01/16/2018,2016,01/30/2015,01/08 Influenza, Unspecified 01/12/2022(Deferr ed: Patient Refused),02/14/2021,01/16/2019, 019,2018,2018,2017,1 Pneumococcal Conjugate PCV 13 12/27/2015 Pneumococcal Polysaccharide PPV23 02/20/2019,04/2001,04/16/2001 Tdap 11/27/2024 Surgical History Surgery Date Site/Laterality Comments TOTAL ABDOMINAL HYSTERECTOMY Hysterectomy, total SPINAL FUSION Spinal fusion, lumbar BACK SURGERY Back Surgery - (Added by TW Conv) CO EXPLORATION N/FLWD SURG NECK ARTERY Carotid Artery [...] . Chronic bronchitis (HCC) Often Neuromuscular disorder Family History Medical History Relation Name Comments Cancer Brother 2 Wojciech Other Brother 2 Wojciech cancer of the h eart; Cause of : cancer of the heart Alcohol abuse Father Wilfrido Alcoholism; Ca use of : Alcoholism Stroke Father Wilfrido Stroke; Cause o f : Stroke Cancer Mother Sun Stroke Mother Sun Stroke; Cause o f : Stroke Alzheimer's disease Sister Ivonne Genaoysm Sister Iovnne aneurysm; Anesthesia problems Neg Hx Colon cancer [...] any time in the past 12 m [place], were you homeless or living in a residential (including now)? No 03/20/2024 Social Connection and Isolation Panel Answer Date Recorded In a typical week, how many times do you talk on the phone with family, friends, or neighbors? Three times a week 12/03/2024 How often do you get togethe r with friends or relatives? More than three times a week 12/03/2024 How often do you attend chur ch or confucianist services? Never 12/03/2024 Do you belong to [...] any time in the past 12 m onths, were you homeless or living in a residential (including now)? No 12/03/2024 [facility] Utilities Answer Date Recorded In the past 12 months has th [employer], gas, oil, or water company threatened to [...] on file Legal Sex Female 2:38 AM [employer] Gender Identity Not on file Sexual Orientation Not on file Obstetrics History Last Filed Vital Signs Vital Sign Reading Time Taken Comments Blood Pressure 108/62 12/03/2024 11:18 AM CDT Pulse 82 12/03/2024 11:18 AM CDT Temperature 36.1 C (97 F) 12/03/2024 11:18 AM CDT Respiratory Rate 18 12/03/2024 11:1 8 AM CDT Oxygen Saturation 96% 12/03/2024 11: 18 AM CDT Inhaled Oxygen Concentration - - Weight 77.9 kg (171 lb 12.8 oz) 11/28/2024 3:20 AM CDT Height 177.8 cm (5' 10) 11/28/2024 3:20 AM CDT Body Mass Index 24.65 11/28/2024 3:20 AM CDT Plan of Treatment Scheduled Procedures Name Priority Associated Diagnoses Date/Ti me ESOPHAGOGASTRODUODENOSCOPY Gastroesophageal reflux disease, esophagitis presence not specified Health Maintenance Due Date Last Done Comments Osteoporosis Screening-Bone Density Scan 1940 Hepatitis B Screening 01/15/1960 Zoster Vaccine (1 of 2) 01/15/1992 Well Visit 65+ 02/21/2020 02/20/2019 Depression Screening 01/12/2023 01/12/2022, 09/27/2021, 05/31/2021, Additional history exists Influenza Vaccine (#1) 2024 , 12/19/2019, 01/16/2019, Additional history exists Fall Risk Assessment 12/02/2025 12/02/2024, 01/12/2022, 09/27/2021, Additional history exists DTaP/Tdap/Td Vaccine (2 - Td or Tdap) 11/27/2034 11/27/2024 Pneumococcal vaccine 65+ Completed 019, 12/27/2015, 04/16/2001, Additional history exists Goals Goal Patient Goal Type Associated Problems Recent Progress Patient-Stated? Author Patient will have kept initial appointment and will show signs of improvement to baseline Care Plan Initial Follow-Up Appointment Pinky Rendon RN Medical Devices Implanted Type Area [employer] Device Identifier Shelf Expiration Date Model / Serial / Lot Stent-09/18/2003 Implanted:Qty: 1 on 09/18/2003 Stent Heart Stent-10/24/2007 Implanted:Qty: 2 on 10/24/2007 Stent Heart [employer]/Orth o Trigen Intertan 11.5mm 42cm Antegrade Intertrochanter Left 125d [id number] - [id number] Implanted:Qty: 1 on 03/20/2024 by Parth Aleman MD at [facility] Left: Hip [employer]/O rtho [id number] 02/08/2032 [id number] / / [id number] [employer]/Orth o Intertan 4.5mm 90mm 85mm Lag Compression Integrate Interlock [id number] - [id number] Implanted:Qty: 1 on 03/20/2024 by Parth Aleman MD at [facility] Left: Hip [employer]/O rtho [id number] 09/11/2033 [id number] / / [id number] Procedures Procedure Name Priority Date/Time Associated Diagnosis Comments EGFR Routine 12/01/2024 11:53 PM CDT DIFFERENTIAL AUTO Routine 12/01/2024 11: 53 PM CDT TYPE AND SCREEN Timed 12/01/2024 11:53 PM CDT CBC WITH AUTO DIFFERENTIAL Routine 12/01/2024 11:53 PM CDT COMPREHENSIVE METABOLIC PANEL Routine 12/01/2024 11:53 PM CDT EGFR Routine 11/30/2024 8:24 PM CDT DIFFERENTIAL AUTO Routine 11/30/2024 8:2 4 PM CDT CBC WITH AUTO DIFFERENTIAL Routine 11/30/2024 8:24 PM CDT COMPREHENSIVE METABOLIC PANEL Routine 11/30/2024 8:24 PM CDT EGFR Routine 11/29/2024 9:49 PM CDT DIFFERENTIAL AUTO Routine 11/29/2024 9:4 9 PM CDT CBC WITH AUTO DIFFERENTIAL Routine 11/29/2024 9:49 PM CDT COMPREHENSIVE METABOLIC PANEL Routine 11/29/2024 9:49 PM CDT CALPROTECTIN, FECAL STAT 11/29/2024 9 :29 AM CDT DRUGS OF ABUSE SCREEN, URINE WITH REFLEX CONFIRMATION STAT 11/28/2024 9:41 PM CDT URINALYSIS, MICROSCOPIC ONLY STAT 11/28/2024 9:41 PM CDT UREA NITROGEN, URINE, RANDOM STAT 11/28/2024 9:41 PM CDT SODIUM, URINE, RANDOM STAT 11/28/2024 9:41 PM CDT CREATININE, URINE, RANDOM STAT 11/28/2024 9:41 PM CDT URINALYSIS AND REFLEX TO MICROSCOPIC AND CULTURE STAT 11/28/2024 9:41 PM CDT EGFR Routine 11/28/2024 9:31 PM CDT DIFFERENTIAL AUTO Routine 11/28/2024 9:3 1 PM CDT TYPE AND SCREEN Timed 11/28/2024 9:31 PM CDT CBC WITH AUTO DIFFERENTIAL Routine 11/28/2024 9:31 PM CDT COMPREHENSIVE METABOLIC PANEL Routine 11/28/2024 9:31 PM CDT LACTATE STAT 11/28/2024 10:16 AM CDT ECG 12-LEAD Routine 11/28/2024 6:39 AM CDT ECG 12-LEAD STAT 11/28/2024 6:38 AM CDT FOLATE STAT 11/28/2024 5:41 AM CDT VITAMIN B12 STAT 11/28/2024 5:41 AM CDT IRON PROFILE W/ IBC STAT 11/28/2024 5 :41 AM CDT CRP (ACUTE PHASE) STAT 11/28/2024 5:4 1 AM CDT PHOSPHORUS STAT 11/28/2024 5:41 AM CDT FERRITIN STAT 11/28/2024 5:41 AM CDT ERYTHROCYTE SEDIMENTATION RATE STAT 11/28/2024 5:41 AM CDT EGFR STAT 11/28/2024 5:41 AM CDT DIFFERENTIAL AUTO STAT 11/28/2024 5:4 1 AM CDT COMPREHENSIVE METABOLIC PANEL STAT 11/28/2024 5:41 AM CDT CBC WITH AUTO DIFFERENTIAL STAT 11/28/2024 5:41 AM CDT LACTATE STAT 11/28/2024 5:41 AM CDT TROPONIN I HIGH-SENSITIVITY 2-HOUR Timed 11/27/2024 5:11 PM CDT XR RADIUS ULNA LEFT 2 VIEWS ED 11/27/2024 3:55 PM CDT TROPONIN I HIGH-SENSITIVITY SERIES (BASELINE, 2HR, 4HR, 6HR) STAT 11/27/2024 3:35 PM CDT RESPIRATORY PATHOGEN PANEL STAT 11/27/2024 3:35 PM CDT BLOOD CULTURE STAT 11/27/2024 3:35 PM CDT BLOOD CULTURE STAT 11/27/2024 3:35 PM CDT ECG 12-LEAD STAT 11/27/2024 3:34 PM CDT POC BLOOD GAS AND CHEMISTRIES, VENOUS Routine 11/27/2024 3:30 PM CDT DIFFERENTIAL AUTO STAT 11/27/2024 3:2 8 PM CDT APTT STAT 11/27/2024 3:28 PM CDT PROTIME-INR STAT 11/27/2024 3:28 PM CDT SEPSIS LACTATE WITH REFLEX STAT 11/27/2024 3:28 PM CDT CBC WITH AUTO DIFFERENTIAL STAT 11/27/2024 3:[address] HEAD AND CERVICAL SPINE WO CONTRAST ED 11/27/2024 3:[address] CHEST ABDOMEN PELVIS W CONTRAST ED 11/27/2024 3:[address] RECON THORACIC AND LUMBAR SPINE WO CONTRAST ED 11/27/2024 3:16 PM CDT POCUS FAST 11/27/2024 2:54 PM CDT XR CHEST 1 VIEW ED 11/27/2024 2:53 PM CDT XR PELVIS 1 OR 2 VIEWS ED 2:51 PM CDT PRO B-TYPE NATRIURETIC PEPTIDE Routine 11/27/2024 2:49 PM CDT THYROID FUNCTION CASCADE Routine 11/27/2024 2:49 PM CDT COMPREHENSIVE METABOLIC PANEL Routine 11/27/2024 2:49 PM CDT EGFR Routine 11/27/2024 2:49 PM CDT MAGNESIUM Routine 11/27/2024 2:49 PM CDT ETHANOL Routine 11/27/2024 2:49 PM CDT TYPE AND SCREEN Timed 11/27/2024 2:49 PM CDT EGFR Routine 11/21/2024 1:06 PM CDT Hyposmolality syndrome Mixed hyperlipidemia Chronic kidney disease (CKD) stage G3b/A1, moderately decreased glomerular filtration rate (GFR) between 30-44 mL/min/1.73 square meter and albuminuria creatinine ratio less than 30 mg/g (HCC) COMPREHENSIVE METABOLIC PANEL Routine 11/21/2024 1:06 PM CDT Hyposmolality syndrome Mixed hyperlipidemia Chronic kidney disease (CKD) stage G3b/A1, moderately decreased glomerular filtration rate (GFR) between 30-44 mL/min/1.73 square meter and albuminuria creatinine ratio less than 30 mg/g (HCC) LIPID PANEL Routine 11/21/2024 1:06 PM CDT Hyposmolality syndrome Mixed hyperlipidemia Chronic kidney disease (CKD) stage G3b/A1, moderately decreased glomerular filtration rate (GFR) between 30-44 mL/min/1.73 square meter and albuminuria creatinine ratio less than 30 mg/g (HCC) CBC WITHOUT DIFFERENTIAL Routine 11/21/2024 1:06 PM CDT Hyposmolality syndrome Mixed hyperlipidemia Chronic kidney disease (CKD) stage G3b/A1, moderately decreased glomerular filtration rate (GFR) between 30-44 mL/min/1.73 square meter and albuminuria creatinine ratio less than 30 mg/g (HCC) from Last 3 Months Results * (ABNORMAL) eGFR (12/01/2024 11:53 PM CDT) eGFR 40(L) >=60 mL/min/1. 73 m2 Comment: Interpretive Data Reference Interval Normal >/= 90 mL/min/1.73m2 Mildly decreased* 60 - 89 mL/min/1.73m2 Mildly to moderately decreased 45 - 59 mL/min/1.73m2 Moderately to severely decreased 30 - 44 mL/min/1.73m2 Severely decreased 15 - 29 mL/min/1.73m2 Kidney Failure < 15 mL/min/1.73m2 *Relative to young adult level Estimated glomerular filtration rate is determined by the 2020 CKD-EPI equation recommended by the National Kidney Foundation (A Unifying Approach to GFR Estimation: Recommendations of the NKF-ASK Task Force on Reassessing the Inclusion of Race in Diagnosing Kidney Disease, JASN 2020). The CKD-EPI equation should not be used for patients with unstable renal function and has not been validated in children and those over 70. Current interpretive data was last reviewed 2021. Blood 12/01/2024 11:5 3 PM CDT 12/02/2024 12:46 AM CDT us Jayda Parra MD LAB BLOOD ORDERABLES Fin al Result [facility] Department [place] [address] * Differential, auto (12/01/2024 11:53 PM CDT) Neutrophil abs 3.80 1.50 - 6.50 K/cumm Imm gran abs 0.04 0.00 - 0.10 K/cumm [facility] Lymphocyte abs 1.55 0.80 - 3.30 K/cumm [facility] Monocyte abs 0.71 0.20 - 0.80 K/cumm [facility] Eosinophil abs 0.22 0.00 - 0.50 K/cumm [facility] Basophil abs 0.04 0.00 - 0.10 K/cumm [facility] Neutrophil pct 59.7 % [facility] Comment: Interpretive Data Percent cell count reference ranges are not reported, since discordance with absolute values may lead to misinterpretation of CBC data. Current Interpretive Data was last revised on 2017. Imm gran pct 0.6 % [facility] Comment: Interpretive Data Percent cell count reference ranges are not reported, since discordance with absolute values may lead to misinterpretation of CBC data. Current Interpretive Data was last revised on 2017. Lymphocyte pct 24.4 % [facility] Comment: Interpretive Data Percent cell count reference ranges are not reported, since discordance with absolute values may lead to misinterpretation of CBC data. Current Interpretive Data was last revised on 2017. Monocyte pct 11.2 % [facility] Comment: Interpretive Data Percent cell count reference ranges are not reported, since discordance with absolute values may lead to misinterpretation of CBC data. Current Interpretive Data was last revised on 2017. Eosinophil pct 3.5 % [facility] Comment: Interpretive Data Percent cell count reference ranges are not reported, since discordance with absolute values may lead to misinterpretation of CBC data. Current Interpretive Data was last revised on 2017. Basophil pct 0.6 % [facility] Comment: Interpretive Data Percent cell count reference ranges are not reported, since discordance with absolute values may lead to misinterpretation of CBC data. Current Interpretive Data was last revised on 2017. Blood 12/01/2024 11:5 3 PM CDT 12/02/2024 12:40 AM CDT Jayda Parra MD LAB BLOOD ORDERABLES Fin al Result [facility] [place] [address] * (ABNORMAL) CBC with auto differential (12/01/2024 11:53 PM CDT) Pathologist [facility] WBC 6.36 3.80 - 9.90 K/cumm Hgb 10.4(L) 11.9 - 15.5 g/dL [facility] Hct 31.3(L) 35.6 - 45.5 % [facility] Plt 119(L) 150 - 400 K/cumm [facility] MPV 12.5(H) 9.1 - 12.3 fL [facility] RBC 3.24(L) 3.90 - 5.20 M/cumm [facility] MCV 96.6(H) 81.3 - 96.4 fL [facility] MCH 32.1 27.1 - 33.3 pg [facility] MCHC 33.2 32.3 - 35.7 g/dL [facility] RDW CV 13.4 11.1 - 14.9 % [facility] RDW SD 48.1 35.7 - 48.1 fL [facility] NRBC abs 0.00 0.00 - 0.01 K/cumm [facility] Blood 12/01/2024 11:5 3 PM CDT 12/02/2024 12:40 AM CDT Jayda Parra MD LAB BLOOD ORDERABLES [facility] al Result [facility] [place] [address] * Type and screen (12/01/2024 11:53 PM CDT) Pathologist [facility] Debbi, indirect Negative ABO Rh A Positive [facility] Blood 12/01/2024 11:5 3 PM CDT 12/02/2024 12:48 AM CDT Narrative [facility] - 12/02/2024 1:53 AM CDT Has the patient had Daratumumab or Isatuximab in the past 6 months?->Unknown us Jayda Parra MD LAB BLOOD BANK TEST [facility] Final Result [facility] [place] [address] * (ABNORMAL) Comprehensive metabolic panel (12/01/2024 11:53 PM CDT) Sodium 134(L) 135 - 145 mmol/L Potassium, pl 3.7 3.3 - 4.9 mmol/L [facility] Chloride 97 97 - 110 mmol/L [facility] CO2 26 22 - 32 mmol/L [facility] Anion gap 11 2 - 15 mmol/L [facility] BUN 18 6 - 25 mg/dL [facility] Creatinine 1.32(H) 0.60 - 1.10 mg/dL [facility] Glucose 98 70 - 199 mg/dL [facility] Comment: Interpretive Data Fasting glucose >/= 126 mg/dl is diagnostic for diabetes. Fasting is defined as no caloric intake for at least 8 hours. Fasting glucose between 100 mg/dl to 125 mg/dl is diagnostic of prediabetes. In a patient with classic symptoms of hyperglycemia or hyperglycemic crisis, a random glucose >/= 200 mg/dl is diagnostic for diabetes. In the absence of unequivocal hyperglycemia, results should be confirmed by repeat testing. The classification and Diagnosis of Diabetes Diabetes Care 2021; 46: S19-S40. Current interpretive data was last revised 2022. Calcium 8.9 8.5 - 10.3 mg/dL [facility] Bilirubin, total 0.2 0.1 - 1.2 mg/dL [facility] Protein, pl 6.2(L) 6.5 - 8.5 g/dL [facility] Albumin 3.1(L) 3.5 - 5.0 g/dL [facility] Alk phos 67 40 - 130 Units/L [facility] ALT 9 7 - 45 Units/L [facility] AST 17 10 - 45 Units/L [facility] Blood 12/01/2024 11:5 3 PM CDT 12/02/2024 12:46 AM CDT Jayad Parra MD LAB BLOOD ORDERABLES Fin al Result Performing Organization Address City/[facility]/ZIP Co de Phone Number [facility] [place] [address] * (ABNORMAL) eGFR (11/30/2024 8:24 PM CDT) eGFR 34(L) >=60 mL/min/1. 73 m2 Comment: Interpretive Data Reference Interval Normal >/= 90 mL/min/1.73m2 Mildly decreased* 60 - 89 mL/min/1.73m2 Mildly to moderately decreased 45 - 59 mL/min/1.73m2 Moderately to severely decreased 30 - 44 mL/min/1.73m2 Severely decreased 15 - 29 mL/min/1.73m2 Kidney Failure < 15 mL/min/1.73m2 *Relative to young adult level Estimated glomerular filtration rate is determined by the 2020 CKD-EPI equation recommended by the National Kidney Foundation (A Unifying Approach to GFR Estimation: Recommendations of the NKF-ASK Task Force on Reassessing the Inclusion of Race in Diagnosing Kidney Disease, JASN 2020). The CKD-EPI equation should not be used for patients with unstable renal function and has not been validated in children and those over 70. Current interpretive data was last reviewed 2021. Blood 11/30/2024 8:24 PM CDT 11/30/2024 8:58 PM CDT Jayda Parra MD LAB BLOOD ORDERABLES Fin al Result [facility] [place] [address] * (ABNORMAL) Differential, auto (11/30/2024 8:24 PM CDT) Neutrophil abs 5.47 1.50 - 6.50 K/cumm Imm gran abs 0.04 0.00 - 0.10 K/cumm [facility] Lymphocyte abs 1.39 0.80 - 3.30 K/cumm [facility] Monocyte abs 0.88(H) 0.20 - 0.80 K/cumm [facility] Eosinophil abs 0.22 0.00 - 0.50 K/cumm [facility] Basophil abs 0.04 0.00 - 0.10 K/cumm [facility] Neutrophil pct 68.1 % [facility] Comment: Interpretive Data Percent cell count reference ranges are not reported, since discordance with absolute values may lead to misinterpretation of CBC data. Current Interpretive Data was last revised on 2017. Imm gran pct 0.5 % [facility] Comment: Interpretive Data Percent cell count reference ranges are not reported, since discordance with absolute values may lead to misinterpretation of CBC data. Current Interpretive Data was last revised on 2017. Lymphocyte pct 17.3 % [facility] Comment: Interpretive Data Percent cell count reference ranges are not reported, since discordance with absolute values may lead to misinterpretation of CBC data. Current Interpretive Data was last revised on 2017. Monocyte pct 10.9 % [facility] Comment: Interpretive Data Percent cell count reference ranges are not reported, since discordance with absolute values may lead to misinterpretation of CBC data. Current Interpretive Data was last revised on 2017. Eosinophil pct 2.7 % [facility] Comment: Interpretive Data Percent cell count reference ranges are not reported, since discordance with absolute values may lead to misinterpretation of CBC data. Current Interpretive Data was last revised on 2017. Basophil pct 0.5 % [facility] Comment: Interpretive Data Percent cell count reference ranges are not reported, since discordance with absolute values may lead to misinterpretation of CBC data. Current Interpretive Data was last revised on 2017. Blood 11/30/2024 8:24 PM CDT 11/30/2024 8:58 PM CDT us Jayda Parra MD LAB BLOOD ORDERABLES Fin al Result [facility] [place] [address] * (ABNORMAL) CBC with auto differential (11/30/2024 8:24 PM CDT) [facility] WBC 8.04 3.80 - 9.90 K/cumm Hgb 10.2(L) 11.9 - 15.5 g/dL [facility] Hct 30.2(L) 35.6 - 45.5 % [facility] Plt 101(L) 150 - 400 K/cumm [facility] MPV 12.6(H) 9.1 - 12.3 fL [facility] RBC 3.17(L) 3.90 - 5.20 M/cumm [facility] MCV 95.3 81.3 - 96.4 fL [facility] MCH 32.2 27.1 - 33.3 pg [facility] MCHC 33.8 32.3 - 35.7 g/dL [facility] RDW CV 13.4 11.1 - 14.9 % [facility] RDW SD 47.6 35.7 - 48.1 fL [facility] NRBC abs 0.00 0.00 - 0.01 K/cumm [facility] Blood 11/30/2024 8:24 PM CDT 11/30/2024 8:58 PM CDT us Jayda Parra MD LAB BLOOD ORDERABLES Fin al Result [facility] [place] [address] * (ABNORMAL) Comprehensive metabolic panel (11/30/2024 8:24 PM CDT) [facility] Sodium 134(L) 135 - 145 mmol/L Potassium, pl 4.0 3.3 - 4.9 mmol/L [facility] Chloride 98 97 - 110 mmol/L [facility] CO2 27 22 - 32 mmol/L [facility] Anion gap 9 2 - 15 mmol/L [facility] BUN 18 6 - 25 mg/dL [facility] Creatinine 1.52(H) 0.60 - 1.10 mg/dL [facility] Glucose 106 70 - 199 mg/dL [facility] Comment: Interpretive Data Fasting glucose >/= 126 mg/dl is diagnostic for diabetes. Fasting is defined as no caloric intake for at least 8 hours. Fasting glucose between 100 mg/dl to 125 mg/dl is diagnostic of prediabetes. In a patient with classic symptoms of hyperglycemia or hyperglycemic crisis, a random glucose >/= 200 mg/dl is diagnostic for diabetes. In the absence of unequivocal hyperglycemia, results should be confirmed by repeat testing. The classification and Diagnosis of Diabetes Diabetes Care 2021; 46: S19-S40. Current interpretive data was last revised 2022. Calcium 8.9 8.5 - 10.3 mg/dL [facility] Bilirubin, total 0.2 0.1 - 1.2 mg/dL [facility] Protein, pl 6.2(L) 6.5 - 8.5 g/dL [facility] Albumin 3.1(L) 3.5 - 5.0 g/dL [facility] Alk phos 64 40 - 130 Units/L [facility] ALT 7 7 - 45 Units/L [facility] AST 15 10 - 45 Units/L [facility] Blood 11/30/2024 8:24 PM CDT 11/30/2024 8:58 PM CDT us Jayda Parra MD LAB BLOOD ORDERABLES Fin al Result [facility] [place] [address] * (ABNORMAL) eGFR (11/29/2024 9:49 PM CDT) eGFR 32(L) >=60 mL/min/1. 73 m2 Comment: Interpretive Data Reference Interval Normal >/= 90 mL/min/1.73m2 Mildly decreased* 60 - 89 mL/min/1.73m2 Mildly to moderately decreased 45 - 59 mL/min/1.73m2 Moderately to severely decreased 30 - 44 mL/min/1.73m2 Severely decreased 15 - 29 mL/min/1.73m2 Kidney Failure < 15 mL/min/1.73m2 *Relative to young adult level Estimated glomerular filtration rate is determined by the 2020 CKD-EPI equation recommended by the National Kidney Foundation (A Unifying Approach to GFR Estimation: Recommendations of the NKF-ASK Task Force on Reassessing the Inclusion of Race in Diagnosing Kidney Disease, JASN 2020). The CKD-EPI equation should not be used for patients with unstable renal function and has not been validated in children and those over 70. Current interpretive data was last reviewed 2021. Blood 11/29/2024 9:49 PM CDT 11/29/2024 10:04 PM CDT us Jayda Parra MD LAB BLOOD ORDERABLES Fin al Result [facility] [place] [address] * (ABNORMAL) Differential, auto (11/29/2024 9:49 PM CDT) Neutrophil abs 6.57(H) 1.50 - 6.50 K/cumm Imm gran abs 0.05 0.00 - 0.10 K/cumm [facility] Lymphocyte abs 1.33 0.80 - 3.30 K/cumm [facility] Monocyte abs 0.88(H) 0.20 - 0.80 K/cumm [facility] Eosinophil abs 0.18 0.00 - 0.50 K/cumm [facility] Basophil abs 0.03 0.00 - 0.10 K/cumm [facility] Neutrophil pct 72.7 % [facility] Comment: Interpretive Data Percent cell count reference ranges are not reported, since discordance with absolute values may lead to misinterpretation of CBC data. Current Interpretive Data was last revised on 2017. Imm gran pct 0.6 % [facility] Comment: Interpretive Data Percent cell count reference ranges are not reported, since discordance with absolute values may lead to misinterpretation of CBC data. Current Interpretive Data was last revised on 2017. Lymphocyte pct 14.7 % [facility] Comment: Interpretive Data Percent cell count reference ranges are not reported, since discordance with absolute values may lead to misinterpretation of CBC data. Current Interpretive Data was last revised on 2017. Monocyte pct 9.7 % [facility] Comment: Interpretive Data Percent cell count reference ranges are not reported, since discordance with absolute values may lead to misinterpretation of CBC data. Current Interpretive Data was last revised on 2017. Eosinophil pct 2.0 % [facility] Comment: Interpretive Data Percent cell count reference ranges are not reported, since discordance with absolute values may lead to misinterpretation of CBC data. Current Interpretive Data was last revised on 2017. Basophil pct 0.3 % [facility] Comment: Interpretive Data Percent cell count reference ranges are not reported, since discordance with absolute values may lead to misinterpretation of CBC data. Current Interpretive Data was last revised on 2017. Blood 11/29/2024 9:49 PM CDT 11/29/2024 10:05 PM CDT us Jayda Parra MD LAB BLOOD ORDERABLES Fin al Result [facility] [place] [address] * (ABNORMAL) CBC with auto differential (11/29/2024 9:49 PM CDT) WBC 9.04 3.80 - 9.90 K/cumm Hgb 9.9(L) 11.9 - 15.5 g/dL [facility] Hct 28.0(L) 35.6 - 45.5 % [facility] Plt 90(L) 150 - 400 K/cumm [facility] MPV 12.2 9.1 - 12.3 fL [facility] RBC 3.03(L) 3.90 - 5.20 M/cumm [facility] MCV 92.4 81.3 - 96.4 fL [facility] MCH 32.7 27.1 - 33.3 pg [facility] MCHC 35.4 32.3 - 35.7 g/dL [facility] RDW CV 13.7 11.1 - 14.9 % [facility] RDW SD 46.5 35.7 - 48.1 fL [facility] NRBC abs 0.00 0.00 - 0.01 K/cumm [facility] Blood 11/29/2024 9:49 PM CDT 11/29/2024 10:05 PM CDT Jayda Parra MD LAB BLOOD ORDERABLES Fin al Result [facility] [place] [address] * (ABNORMAL) Comprehensive metabolic panel (11/29/2024 9:49 PM CDT) Sodium 131(L) 135 - 145 mmol/L Potassium, pl 3.5 3.3 - 4.9 mmol/L [facility] Chloride 98 97 - 110 mmol/L [facility] CO2 24 22 - 32 mmol/L [facility] Anion gap 9 2 - 15 mmol/L [facility] BUN 16 6 - 25 mg/dL [facility] Creatinine 1.61(H) 0.60 - 1.10 mg/dL [facility] Glucose 111 70 - 199 mg/dL [facility] Comment: Interpretive Data Fasting glucose >/= 126 mg/dl is diagnostic for diabetes. Fasting is defined as no caloric intake for at least 8 hours. Fasting glucose between 100 mg/dl to 125 mg/dl is diagnostic of prediabetes. In a patient with classic symptoms of hyperglycemia or hyperglycemic crisis, a random glucose >/= 200 mg/dl is diagnostic for diabetes. In the absence of unequivocal hyperglycemia, results should be confirmed by repeat testing. The classification and Diagnosis of Diabetes Diabetes Care 202; 46: S19-S40. Current interpretive data was last revised 2022. Calcium 8.2(L) 8.5 - 10.3 mg/dL [facility] Bilirubin, total 0.3 0.1 - 1.2 mg/dL [facility] Protein, pl 5.9(L) 6.5 - 8.5 g/dL [facility] Albumin 3.0(L) 3.5 - 5.0 g/dL [facility] Alk phos 66 40 - 130 Units/L [facility] ALT 8 7 - 45 Units/L [facility] AST 17 10 - 45 Units/L [facility] Blood 11/29/2024 9:49 PM CDT 11/29/2024 10:04 PM CDT Jayda Parra MD LAB BLOOD ORDERABLES Fin al Result Performing Organization Address [facility] de Phone Number [facility] [place] [address] * (ABNORMAL) Calprotectin, fecal (11/29/2024 9:29 AM CDT) Pathologist [facility] Calprotectin, fecal 2091(H) <50.0 (Normal) mcg/g [facility] Comment: Interpretation: Abnormal (>120 mcg/g) Test Performed by: [facility] [address] [place] [address] Chemical Handler: Sasha Barrientos Ph.D.; CLIA# [id number] Stool 11/29/2024 9:29 AM CDT 11/29/2024 11:37 AM CDT Venus Peterson MD LAB BODY FLUIDS A ND STOOLS ORDERABLES Final Result Performing Organization Address [facility] de Phone Number [facility] [place] [address] [facility] * Drugs of Abuse Screen, Urine with Reflex Confirmation (11/28/2024 9:41 PM CDT) Pathologist [facility] Amphetamine, ur Not Detected CutOff 500ng/mL Comment: Interpretive Data - Amphetamines: Samples containing greater than 500 ng/mL d-methamphetamine or other cross-reacting amphetamine compounds are reported as positive. Amphetamine immunoassays are subject to significant false positive rates due to cross-reactivity of non-amphetamine drugs. Confirmatory testing required for definitive results. Current Interpretive Data was last reviewed 2022. Barbiturates, ur Not Detected CutOff 200ng/mL [facility] Comment: Interpretive Data - Barbiturates: Samples containing greater than 200 ng/mL secobarbital or other cross-reacting barbiturate compounds are reported as positive. False positive and false negative results are possible. Confirmatory testing required for definitive results. Current Interpretive Data was last reviewed 2022. Benzodiazepines, ur Not Detected CutOff 100ng/mL [facility] Comment: Interpretive Data - Benzodiazepines: Samples containing greater than 100 ng/mL nordiazepam or other cross-reacting compounds are reported as positive. False positive and false negative results are possible. Confirmatory testing required for definitive results. Current Interpretive Data was last reviewed 2022. Cannabinoids, ur Not Detected CutOff 50 ng/mL [facility] Comment: Interpretive Data - Cannabinoids: Samples containing greater than 50 ng/mL delta-9 THC -COOH or other cross- reacting compounds are reported as positive. False positive and false negative results are possible. Confirmatory testing required for definitive results. Current Interpretive Data was last reviewed 2022. Cocaine, ur Not Detected CutOff 150ng/mL [facility] Comment: Interpretive Data - Cocaine: Samples containing greater than 150 ng/mL benzoylecgonine or other cross- reacting compounds are reported as positive. False positive and false negative results are possible. Confirmatory testing required for definitive results. Current Interpretive Data was last reviewed 2022. Fentanyl, Ur Not Detected CutOff 5 ng/mL [facility] Comment: Interpretive Data - Fentanyl: Samples containing greater than 5 ng/mL norfentanyl, fentanyl, or other cross-reacting fentanyl compounds are reported as positive. False positive and false negative results are possible. Confirmatory testing required for definitive results. Current Interpretive Data was last reviewed 2023. Methadone, ur Not Detected CutOff 300ng/mL [facility] Comment: Interpretive Data - Methadone: Samples containing greater than 300 ng/mL d,l-methadone or other cross-reacting compounds are reported as positive. False positive and false negative results are possible. Confirmatory testing required for definitive results. Current Interpretive Data was last reviewed 2022. Opiates, ur Not Detected CutOff 300ng/mL [facility] Comment: Interpretive Data - Opiates: Samples containing greater than 300 ng/mL morphine or other cross-reacting compounds are reported as positive. False positive and false negative results are possible. Confirmatory testing required for definitive results. Current Interpretive Data was last reviewed 2022. Oxycodone, ur Not Detected CutOff 100ng/mL [facility] Comment: Interpretive Data - Oxycodone: Samples containing greater than 100 ng/mL oxycodone or other cross-reacting compounds are reported as positive. False positive and false negative results are possible. Confirmatory testing required for definitive results. Current Interpretive Data was last reviewed 2022. Phencyclidine, ur Not Detected CutOff 25 ng/mL [facility] Comment: Interpretive Data - Phencyclidine: Samples containing greater than 25 ng/mL phencyclidine or other cross-reacting compounds are reported as positive. False positive and false negative results are possible. Confirmatory testing required for definitive results. Current Interpretive Data was last reviewed 2022. Urine Creatinine 81 mg/dL [facility] Comment: Interpretive Data Urine Creatinine: < 10 mg/dL is extremely dilute = or > 10 but < 20 mg/dL is dilute = or > 20 mg/dL is normal Current Interpretive Data was last revised on 2017. Urine 11/28/2024 9:41 PM CDT 11/28/2024 10:48 PM CDT Leanne Grossman MD LAB URINE ORDERA BLES Final Result [facility] [place] [address] * (ABNORMAL) Urinalysis reflex to microscopic and culture Urine (11/28/2024 9:41 PM CDT) Color, ur Straw Yellow Clarity, ur Clear Clear [facility] Specific gravity, ur 1.022 1.003 - 1.030 [facility] pH, urine 6.5 [facility] Comment: Interpretive Data U rine pH is affected by diet, medications, systemic acid-base disturbances, and renal tubular function. pH may affect urinary stone formation. For example, urine pH below 6.0 may help reduce the tendency for calcium phosphate stones and pH greater than 6.0 may reduce the tendency for uric acid stone formation. Source: [facility] Current Interpretive Data was last revised on 2017 Protein, ur ql 1+(A) Negative [facility] Glucose, ur ql Negative Negative [facility] Ketones, ur Negative Negative [facility] Bilirubin, ur Negative Negative [facility] Blood, ur 1+(A) Negative [facility] Urobilinogen, ur <2.0 <2.0 mg/dL [facility] Nitrite, ur Negative Negative [facility] Leukocyte esterase, ur Negative Negative [facility] UA reflex comment Reflex to microscopic UA will be performed. [facility] Urine 11/28/2024 9:41 PM CDT 11/28/2024 10:46 PM CDT Jayda Parra MD LAB MICROBIOLOGY - GENER AL ORDERABLES Final Result Performing Organization Address City/[facility] Co de Phone Number [facility] [place] [address] * Urea nitrogen, urine, random (11/28/2024 9:41 PM CDT) Urea nitrogen, ur 471 mg/dL Comment: Interpretive Data No reference range established. Current interpretive data was last revised 2018. Urine 11/28/2024 9:41 PM CDT 11/28/2024 10:48 PM CDT Jayda Parra MD LAB URINE ORDERABLES Fin al Result Performing Organization Address [facility] Co de Phone Number [facility] [place] [address] * Sodium, urine, random (11/28/2024 9:41 PM CDT) Sodium, ur 61 mmol/L Comment: Interpretive Data No reference range established. Current interpretive data was last revised 2018. Urine 11/28/2024 9:41 PM CDT 11/28/2024 10:48 PM CDT Jayda Parra MD LAB URINE ORDERABLES Fin al Result Performing Organization Address [facility] de Phone Number [facility] [place] [address] * Creatinine, urine, random (11/28/2024 9:41 PM CDT) Creatinine Ur 80.7 mg/dL Comment: Interpretive Data No reference range established. Current interpretive data was last revised 2018. Urine 11/28/2024 9:41 PM CDT 11/28/2024 10:48 PM CDT Jayda Parra MD LAB URINE ORDERABLES Fin al Result Performing Organization Address [facility] de Phone Number [facility] [place] [address] * (ABNORMAL) Urinalysis, microscopic only (11/28/2024 9:41 PM CDT) WBC, ur 6-10(A) 0 - 5 /HPF RBC, ur 0-2 0 - 2 /HPF [facility] Epithelial cells, squamous, ur 1-5 0 - 5 /HPF [facility] Bacteria, ur 1+(A) [facility] Yeast, ur 1+(A) [facility] Amorphous crystals, ur 1+(A) [facility] Culture Reflex Comment Reflex conditions for urine culture (WBC >10) not met. [facility] Urine 11/28/2024 9:41 PM CDT 11/28/2024 10:46 PM CDT Jayda Parra MD LAB URINE ORDERABLES Fin al Result Performing Organization Address [facility]/ZIP Co de Phone Number [facility] [place] [address] * (ABNORMAL) eGFR (11/28/2024 9:31 PM CDT) Pathologist [facility] eGFR 31(L) >=60 mL/min/1. 73 m2 Comment: Interpretive Data Reference Interval Normal >/= 90 mL/min/1.73m2 Mildly decreased* 60 - 89 mL/min/1.73m2 Mildly to moderately decreased 45 - 59 mL/min/1.73m2 Moderately to severely decreased 30 - 44 mL/min/1.73m2 Severely decreased 15 - 29 mL/min/1.73m2 Kidney Failure < 15 mL/min/1.73m2 *Relative to young adult level Estimated glomerular filtration rate is determined by the 2020 CKD-EPI equation recommended by the National Kidney Foundation (A Unifying Approach to GFR Estimation: Recommendations of the NKF-ASK Task Force on Reassessing the Inclusion of Race in Diagnosing Kidney Disease, JASN 2020). The CKD-EPI equation should not be used for patients with unstable renal function and has not been validated in children and those over 70. Current interpretive data was last reviewed 2021. Blood 11/28/2024 9:31 PM CDT 11/28/2024 10:46 PM CDT us Jayda Parra MD LAB BLOOD ORDERABLES Fin al Result Performing Organization Address [facility] Co de Phone Number [facility] [place] [address] * (ABNORMAL) Differential, auto (11/28/2024 9:31 PM CDT) Neutrophil abs 9.46(H) 1.50 - 6.50 K/cumm Imm gran abs 0.06 0.00 - 0.10 K/cumm [facility] Lymphocyte abs 1.53 0.80 - 3.30 K/cumm [facility] Monocyte abs 0.96(H) 0.20 - 0.80 K/cumm [facility] Eosinophil abs 0.06 0.00 - 0.50 K/cumm [facility] Basophil abs 0.04 0.00 - 0.10 K/cumm [facility] Neutrophil pct 78.2 % [facility] Comment: Interpretive Data Percent cell count reference ranges are not reported, since discordance with absolute values may lead to misinterpretation of CBC data. Current Interpretive Data was last revised on 2017. Imm gran pct 0.5 % [facility] Comment: Interpretive Data Percent cell count reference ranges are not reported, since discordance with absolute values may lead to misinterpretation of CBC data. Current Interpretive Data was last revised on 2017. Lymphocyte pct 12.6 % [facility] Comment: Interpretive Data Percent cell count reference ranges are not reported, since discordance with absolute values may lead to misinterpretation of CBC data. Current Interpretive Data was last revised on 2017. Monocyte pct 7.9 % [facility] Comment: Interpretive Data Percent cell count reference ranges are not reported, since discordance with absolute values may lead to misinterpretation of CBC data. Current Interpretive Data was last revised on 2017. Eosinophil pct 0.5 % [facility] Comment: Interpretive Data Percent cell count reference ranges are not reported, since discordance with absolute values may lead to misinterpretation of CBC data. Current Interpretive Data was last revised on 2017. Basophil pct 0.3 % [facility] Comment: Interpretive Data Percent cell count reference ranges are not reported, since discordance with absolute values may lead to misinterpretation of CBC data. Current Interpretive Data was last revised on 2017. Blood 11/28/2024 9:31 PM CDT 11/28/2024 10:46 PM CDT us Jayda Parra MD LAB BLOOD ORDERABLES Fin al Result [facility] [place] [address] * (ABNORMAL) CBC with auto differential (11/28/2024 9:31 PM CDT) WBC 12.11(H) 3.80 - 9.90 K/cumm Hgb 10.7(L) 11.9 - 15.5 g/dL [facility] Hct 31.6(L) 35.6 - 45.5 % [facility] Plt 91(L) 150 - 400 K/cumm [facility] MPV 12.4(H) 9.1 - 12.3 fL [facility] RBC 3.39(L) 3.90 - 5.20 M/cumm [facility] MCV 93.2 81.3 - 96.4 fL [facility] MCH 31.6 27.1 - 33.3 pg [facility] MCHC 33.9 32.3 - 35.7 g/dL [facility] RDW CV 13.9 11.1 - 14.9 % [facility] RDW SD 47.3 35.7 - 48.1 fL [facility] NRBC abs 0.00 0.00 - 0.01 K/cumm [facility] Blood 11/28/2024 9:31 PM CDT 11/28/2024 10:46 PM CDT Jayda Parra MD LAB BLOOD ORDERABLES Fin al Result Performing Organization Address City/[facility]/ZIP Co de Phone Number [facility] [place] [address] * Type and screen (11/28/2024 9:31 PM CDT) ABO Rh A Positive Debbi, indirect Negative [facility] Blood 11/28/2024 9:31 PM CDT 11/28/2024 10:48 PM CDT Narrative [facility] - 11/28/2024 11:49 PM CDT Has the patient had Daratumumab or Isatuximab in the past 6 months?->Unknown Jayda Parra MD LAB BLOOD BANK TEST ORDE RABLES Final Result Performing Organization Address City/[facility]/ZIP Co de Phone Number [facility] [place] [address] * (ABNORMAL) Comprehensive metabolic panel (11/28/2024 9:31 PM CDT) Sodium 134(L) 135 - 145 mmol/L Potassium, pl 3.3 3.3 - 4.9 mmol/L [facility] Chloride 96(L) 97 - 110 mmol/L [facility] CO2 26 22 - 32 mmol/L [facility] Anion gap 12 2 - 15 mmol/L [facility] BUN 20 6 - 25 mg/dL [facility] Creatinine 1.65(H) 0.60 - 1.10 mg/dL [facility] Glucose 121 70 - 199 mg/dL [facility] Comment: Interpretive Data Fasting glucose >/= 126 mg/dl is diagnostic for diabetes. Fasting is defined as no caloric intake for at least 8 hours. Fasting glucose between 100 mg/dl to 125 mg/dl is diagnostic of prediabetes. In a patient with classic symptoms of hyperglycemia or hyperglycemic crisis, a random glucose >/= 200 mg/dl is diagnostic for diabetes. In the absence of unequivocal hyperglycemia, results should be confirmed by repeat testing. The classification and Diagnosis of Diabetes Diabetes Care 2021; 46: S19-S40. Current interpretive data was last revised 2022. Calcium 9.2 8.5 - 10.3 mg/dL [facility] Bilirubin, total 0.6 0.1 - 1.2 mg/dL [facility] Protein, pl 6.7 6.5 - 8.5 g/dL [facility] Albumin 3.8 3.5 - 5.0 g/dL [facility] Alk phos 96 40 - 130 Units/L [facility] ALT 9 7 - 45 Units/L [facility] AST 17 10 - 45 Units/L [facility] Blood 11/28/2024 9:31 PM CDT 11/28/2024 10:46 PM CDT us Jayda Parra MD LAB BLOOD ORDERABLES Fin al Result [facility] [place] [address] * Lactate (11/28/2024 10:16 AM CDT) Lactate 1.8 0.7 - 2.0 mmol/L Blood 11/28/2024 10:1 6 AM CDT 11/28/2024 10:27 AM CDT Leanne Grossman MD LAB BLOOD ORDERA BLES Final Result [facility] [place] [address] * ECG 12 lead (11/28/2024 6:39 AM CDT) Ventricular Rate EKG/Min 98 BPM [facility] Atrial Rate 98 BPM [facility] CO-Interval (MSEC) 164 ms [facility] QRS-Interval (MSEC) 88 ms [facility] QT-Interval (MSEC) 402 ms [facility] QTc 513 ms [facility] P [place] 79 degrees [facility] R [place] 0 degrees [facility] T [place] 93 degrees [facility] Diagnosis Sinus rhythm with frequent Premature ventricular complexes Nonspecific ST and T wave abnormality Abnormal ECG Confirmed by Melony WILSON [facility] ([id number]) on 12/01/2024 10:33:04 AM [facility] 11/28/2024 6:39 AM CDT 12/01/2024 10:33 AM CDT us Leanne Grossman MD ECG ORDERABLES Final Result [facility] * ECG 12 lead (11/28/2024 6:38 AM CDT) Ventricular Rate EKG/Min 99 BPM [facility] Atrial Rate 0 BPM [facility] QRS-Interval (MSEC) 104 ms [facility] QT-Interval (MSEC) 390 ms [facility] QTc 500 ms [facility] R [place] 11 degrees [facility] T [place] 104 degrees [facility] Diagnosis Sinus rhythm Premature ventricular complexes Nonspecific ST abnormality Abnormal QRS-T angle, consider primary T wave abnormality Abnormal ECG Confirmed by Tugn Ty MD ([id number]) on 11/28/2024 11:01:03 AM [facility] 11/28/2024 6:38 AM CDT 11/28/2024 11:01 AM CDT us Venus Peterson MD ECG ORDERABLES F inal Result Performing Organization Address [facility]/ZIP Co de Phone Number [facility] * (ABNORMAL) Lactate (11/28/2024 5:41 AM CDT) Lactate 2.4(H) 0.7 - 2.0 mmol/L Blood 11/28/2024 5:41 AM CDT 11/28/2024 5:55 AM CDT us Jayda Parra MD LAB BLOOD ORDERABLES Fin al Result Performing Organization Address [facility] Co de Phone Number [facility] [place] [address] * (ABNORMAL) eGFR (11/28/2024 5:41 AM CDT) eGFR 26(L) >=60 mL/min/1. 73 m2 Comment: Interpretive Data Reference Interval Normal >/= 90 mL/min/1.73m2 Mildly decreased* 60 - 89 mL/min/1.73m2 Mildly to moderately decreased 45 - 59 mL/min/1.73m2 Moderately to severely decreased 30 - 44 mL/min/1.73m2 Severely decreased 15 - 29 mL/min/1.73m2 Kidney Failure < 15 mL/min/1.73m2 *Relative to young adult level Estimated glomerular filtration rate is determined by the 2020 CKD-EPI equation recommended by the National Kidney Foundation (A Unifying Approach to GFR Estimation: Recommendations of the NKF-ASK Task Force on Reassessing the Inclusion of Race in Diagnosing Kidney Disease, JASN 2020). The CKD-EPI equation should not be used for patients with unstable renal function and has not been validated in children and those over 70. Current interpretive data was last reviewed 2021. Blood 11/28/2024 5:41 AM CDT 11/28/2024 5:55 AM CDT us Jayda Parra MD LAB BLOOD ORDERABLES Fin al Result [facility] [place] [address] * (ABNORMAL) Differential, auto (11/28/2024 5:41 AM CDT) Neutrophil abs 9.12(H) 1.50 - 6.50 K/cumm Imm gran abs 0.08 0.00 - 0.10 K/cumm [facility] Lymphocyte abs 1.58 0.80 - 3.30 K/cumm [facility] Monocyte abs 0.99(H) 0.20 - 0.80 K/cumm [facility] Eosinophil abs 0.04 0.00 - 0.50 K/cumm [facility] Basophil abs 0.05 0.00 - 0.10 K/cumm [facility] Neutrophil pct 77.0 % [facility] Comment: Interpretive Data Percent cell count reference ranges are not reported, since discordance with absolute values may lead to misinterpretation of CBC data. Current Interpretive Data was last revised on 2017. Imm gran pct 0.7 % [facility] Comment: Interpretive Data Percent cell count reference ranges are not reported, since discordance with absolute values may lead to misinterpretation of CBC data. Current Interpretive Data was last revised on 2017. Lymphocyte pct 13.3 % [facility] Comment: Interpretive Data Percent cell count reference ranges are not reported, since discordance with absolute values may lead to misinterpretation of CBC data. Current Interpretive Data was last revised on 2017. Monocyte pct 8.3 % [facility] Comment: Interpretive Data Percent cell count reference ranges are not reported, since discordance with absolute values may lead to misinterpretation of CBC data. Current Interpretive Data was last revised on 2017. Eosinophil pct 0.3 % [facility] Comment: Interpretive Data Percent cell count reference ranges are not reported, since discordance with absolute values may lead to misinterpretation of CBC data. Current Interpretive Data was last revised on 2017. Basophil pct 0.4 % [facility] Comment: Interpretive Data Percent cell count reference ranges are not reported, since discordance with absolute values may lead to misinterpretation of CBC data. Current Interpretive Data was last revised on 2017. Blood 11/28/2024 5:41 AM CDT 11/28/2024 5:55 AM CDT Jayda Parra MD LAB BLOOD ORDERABLES Fin al Result Performing Organization Address [facility]/ZIP Co de Phone Number [facility] [place] [address] * (ABNORMAL) Iron profile w/ IBC (11/28/2024 5:41 AM CDT) Iron 18(L) 35 - 145 mcg/dL TIBC 211(L) 250 - 400 mcg/dL [facility] Transferrin saturation 9(L) 20 - 50 % [facility] Blood 11/28/2024 5:41 AM CDT 11/28/2024 5:55 AM CDT Ynes Kincaid MD LAB BLOOD ORDERAB LES Final Result Performing Organization Address City/[facility]/ZIP Co de Phone Number [facility] [place] [address] * (ABNORMAL) CBC with auto differential (11/28/2024 5:41 AM CDT) WBC 11.86(H) 3.80 - 9.90 K/cumm Hgb 10.9(L) 11.9 - 15.5 g/dL [facility] Hct 32.5(L) 35.6 - 45.5 % [facility] Plt 75(L) 150 - 400 K/cumm [facility] MPV 12.3 9.1 - 12.3 fL [facility] RBC 3.44(L) 3.90 - 5.20 M/cumm [facility] MCV 94.5 81.3 - 96.4 fL [facility] MCH 31.7 27.1 - 33.3 pg [facility] MCHC 33.5 32.3 - 35.7 g/dL [facility] RDW CV 13.7 11.1 - 14.9 % [facility] RDW SD 46.6 35.7 - 48.1 fL [facility] NRBC abs 0.00 0.00 - 0.01 K/cumm [facility] Blood 11/28/2024 5:41 AM CDT 11/28/2024 5:55 AM CDT Jayda Parra MD LAB BLOOD ORDERABLES Fin al Result [facility] [place] [address] * (ABNORMAL) Erythrocyte sedimentation rate (11/28/2024 5:41 AM CDT) Erythrocyte sedimentation rate 45(H) 1 - 30 mm/hr Blood 11/28/2024 5:41 AM CDT 11/28/2024 5:58 AM CDT Ynes Kincaid MD LAB BLOOD ORDERAB LES Final Result [facility] [place] [address] * (ABNORMAL) CRP (acute phase) (11/28/2024 5:41 AM CDT) CRP 190.9(H) <=10.0 mg/L Blood 11/28/2024 5:41 AM CDT 11/28/2024 5:55 AM CDT Ynes Kincaid MD LAB BLOOD ORDERAB LES Final Result Performing Organization Address City/[facility] Co de Phone Number [facility] [place] [address] * Phosphorus (11/28/2024 5:41 AM CDT) Phosphorus, pl 2.3 2.3 - 4.5 mg/dL Blood 11/28/2024 5:41 AM CDT 11/28/2024 5:55 AM CDT Ynes Kincaid MD LAB BLOOD ORDERAB LES Final Result Performing Organization Address [facility] Co de Phone Number [facility] [place] [address] * Folate (11/28/2024 5:41 AM CDT) Pathologist [facility] Folic acid 13.5 >=5.0 ng/mL Blood 11/28/2024 5:41 AM CDT 11/28/2024 5:55 AM CDT Ynes Kincaid MD LAB BLOOD ORDERAB LES Final Result Performing Organization Address City/[facility] Co de Phone Number [facility] [place] [address] * Ferritin (11/28/2024 5:41 AM CDT) Pathologist [facility] Ferritin 146 13 - 150 ng/mL Blood 11/28/2024 5:41 AM CDT 11/28/2024 5:55 AM CDT Ynes Kincaid MD LAB BLOOD ORDERAB LES Final Result [facility] [place] [address] * Vitamin B12 (11/28/2024 5:41 AM CDT) [facility] Vitamin B12 813 230 - 1,250 pg/mL Blood 11/28/2024 5:41 AM CDT 11/28/2024 5:55 AM CDT Ynes Kincaid MD LAB BLOOD ORDERAB LES Final Result Performing Organization Address [facility] Co de Phone Number [facility] [place] [address] * (ABNORMAL) Comprehensive metabolic panel (11/28/2024 5:41 AM CDT) [facility] Sodium 132(L) 135 - 145 mmol/L Potassium, pl 3.6 3.3 - 4.9 mmol/L [facility] Chloride 95(L) 97 - 110 mmol/L [facility] CO2 25 22 - 32 mmol/L [facility] Anion gap 12 2 - 15 mmol/L [facility] BUN 23 6 - 25 mg/dL [facility] Creatinine 1.90(H) 0.60 - 1.10 mg/dL [facility] Glucose 106 70 - 199 mg/dL [facility] Comment: Interpretive Data Fasting glucose >/= 126 mg/dl is diagnostic for diabetes. Fasting is defined as no caloric intake for at least 8 hours. Fasting glucose between 100 mg/dl to 125 mg/dl is diagnostic of prediabetes. In a patient with classic symptoms of hyperglycemia or hyperglycemic crisis, a random glucose >/= 200 mg/dl is diagnostic for diabetes. In the absence of unequivocal hyperglycemia, results should be confirmed by repeat testing. The classification and Diagnosis of Diabetes Diabetes Care 202; 46: S19-S40. Current interpretive data was last revised 2022. Calcium 9.3 8.5 - 10.3 mg/dL [facility] Bilirubin, total 0.8 0.1 - 1.2 mg/dL [facility] Protein, pl 6.7 6.5 - 8.5 g/dL [facility] Albumin 3.8 3.5 - 5.0 g/dL [facility] Alk phos 74 40 - 130 Units/L [facility] ALT 9 7 - 45 Units/L [facility] AST 19 10 - 45 Units/L [facility] Blood 11/28/2024 5:41 AM CDT 11/28/2024 5:55 AM CDT Jayda Parra MD LAB BLOOD ORDERABLES Fin al Result Performing Organization Address [facility] Co de Phone Number [facility] [place] [address] * Troponin I high-sensitivity 2-hour (11/27/2024 5:11 PM CDT) Trop I hs 5 <=17 ng/L Comment: Interpretive Data For further hscTnI resources including the diagnostic algorithm and an aid in interpretation, copy and paste this link: https://bjhlab.testcatalog.org/show/hsTrop-1 Current Interpretive Data last revised 2019. Trop I hs delta -7 ng/L [facility] Trop I hs interp Equivocal [facility] Blood 11/27/2024 5:11 PM CDT 11/27/2024 6:18 PM CDT Quinn Yanes MD LAB BLOOD ORDERABLES F inal Result [facility] [place] [address] * XR Radius Ulna Left 2 Views (11/27/2024 3:55 PM CDT) Anatomical Region Laterality Modality Upper Extremities, Forearm Left Compu carter Radiography 11/27/2024 4:29 PM CDT Impressions 11/27/2024 4:50 PM CDT No acute fracture. Dictated by: Yehuda Obregon M.D. The radiology attending physician has personally reviewed this study, and had reviewed and/or edited this written report and agrees with it. Electronically signed by: Sandrine Sanderson M.D. Narrative 11/27/2024 4:50 PM CDT EXAMINATION: XR RADIUS ULNA LEFT 2 VIEWS HISTORY: 84-year-old female status post ground level fall. COMPARISON: None. FINDINGS: 2 views of the radius and ulna are submitted for evaluation. No acute fractures identified. Normal alignment. No dislocations. No elbow joint effusion. Procedure Note Sandrine Sanderson MD - 11/27/2024 EXAMINATION: XR RADIUS ULNA LEFT 2 VIEWS HISTORY: 84-year-old female status post ground level fall. COMPARISON: None. FINDINGS: 2 views of the radius and ulna are submitted for evaluation. No acute fractures identified. Normal alignment. No dislocations. No elbow joint effusion. IMPRESSION: No acute fracture. Dictated by: Yehuda Obregon M.D. The radiology attending physician has personally reviewed this study, and had reviewed and/or edited this written report and agrees with it. Electronically signed by: Sandrine Sanderson M.D. Quinn Yanes MD IMG XR PROCEDURES Christina l Result * Troponin I high-sensitivity series (baseline, 2hr, 4hr, 6hr) (11/27/2024 3:35 PM CDT) Trop I hs 12 <=17 ng/L Comment: Interpretive Data For further hscTnI resources including the diagnostic algorithm and an aid in interpretation, copy and paste this link: https://bjhlab.testcatalog.org/show/hsTrop-1 Current Interpretive Data last revised 2019. Blood 11/27/2024 3:35 PM CDT 11/27/2024 3:50 PM CDT Quinn Yanes MD LAB BLOOD ORDERABLES F inal Result [facility] [place] [address] * Respiratory pathogen panel Nasopharyngeal (11/27/2024 3:35 PM CDT) [facility] Influenza A RNA Not Detected Not Detected Influenza B RNA Not Detected Not Detected [facility] RSV RNA Not Detected Not Detected [facility] COVID-19 RNA Not Detected Not Detected [facility] Coronavirus 229E RNA Not Detected Not Detected [facility] Coronavirus HKU1 RNA Not Detected Not Detected [facility] Coronavirus NL63 RNA Not Detected Not Detected [facility] Coronavirus OC43 RNA Not Detected Not Detected [facility] Adenovirus DNA Not Detected Not Detected [facility] Metapneumovirus RNA Not Detected Not Detected [facility] Rhinovirus/Enterov irus RNA Not Detected Not Detected [facility] Parainfluenza 1 RNA Not Detected Not Detected [facility] Parainfluenza 2 RNA Not Detected Not Detected [facility] Parainfluenza 3 RNA Not Detected Not Detected [facility] Parainfluenza 4 RNA Not Detected Not Detected [facility] B. pertussis DNA Not Detected Not Detected [facility] B. parapertussis DNA Not Detected Not Detected [facility] C. pneumoniae DNA Not Detected Not Detected [facility] M. pneumoniae DNA Not Detected Not Detected [facility] Nasopharyngeal 11/27/2024 3: 35 PM CDT 11/27/2024 3:44 PM CDT Narrative [facility] - 11/27/2024 4:40 PM CDT Is the Patient experiencing symptoms consistent with COVID?->Unknown Surveillance testing for transplant patient?->No Interpretive Data [employer] FilmArray Respiratory Panel (RP2.1) assay is a multiplexed real-time PCR based nucleic acid test capable of simultaneous qualitative detection and identification of multiple respiratory viral and bacterial nucleic acids, including SARS Coronavirus 2 (the causative agent of COVID-19). The following bacteria, viruses and virus subtypes can be identified using the FilmArray RP2.1 assay: Bordetella pertussis, Bordetella parapertussis, Chlamydia pneumoniae, Mycoplasma pneumoniae, Adenovirus, SARS Coronavirus 2, seasonal coronaviruses (Coronavirus HKU1, Coronavirus NL63, Coronavirus 229E, and Coronavirus OC43), Influenza A, Influenza A subtype H1, Influenza A subtype H3, Influenza A subtype 2009 H1, Influenza B, Metapneumovirus, Parainfluenza 1, Parainfluenza 2, Parainfluenza 3, Parainfluenza 4, RSV, Rhinovirus/Enterovirus. Due to the genetic similarity between human Rhinovirus and Enterovirus, the FilmArray RP2.1 assay cannot reliably differentiate them. Coronavirus OC43 may cross-react with some isolates of Coronavirus HKU1. A dual positive result may be due to cross-reactivity or may indicate a co- infection. The detection and identification of specific viral and bacterial nucleic acids from individuals exhibiting signs and symptoms of a respiratory infection aids in the diagnosis of respiratory infection if used in conjunction with other clinical and epidemiological information. The results of this test should not be used as the sole basis for diagnosis, treatment, or other management decisions. Negative results in the setting of a respiratory illness may be due to infection with pathogens that are not detected by this test. Positive results do not rule out infection/co-infection with other organisms. The agent(s) detected by the FilmArray RP2.1 may not be the definite cause of disease. Additional testing (lab, imaging, etc.) may be necessary when evaluating a patient with possible respiratory tract infection. The FilmArray RP2.1 assay has FDA clearance for testing of INSTRUMENTATION FITTER swabs. The performance of additional specimen types has been assessed by the performing laboratory. The performance characteristics of this assay have been determined by [facility] Molecular Infectious Disease Laboratory. Current interpretive data was last revised on 22. us Quinn Yanes MD LAB MICROBIOLOGY - GEN ERAL ORDERABLES Final Result [facility] [place] [address] * Blood culture Blood Peripheral (11/27/2024 3:35 PM CDT) Report Final Report: No growth Blood (Peripheral) 11/27/2024 3:35 PM CDT 11/27/2024 3:46 PM CDT Narrative [facility] - 12/01/2024 4:01 PM CDT From a different site than #1. Draw Blood cultures before administration of Antibiotics Collection->Peripheral 1. Blood cultures are incubated for 4 days on a continuously monitored blood culture system. The first report of a negative culture is issued within 24 hours of receipt of the specimen in the laboratory. 2. Positive culture results are reported as soon as they are detected. 3. The most important factor for detection of microbes in the setting of bloodstream infection is the volume of blood submitted for culture. Failure to collect an optimal blood volume can result in false negative blood cultures. 4. For pediatric patients, the recommended blood volume to collect follows a weight based strategy. See the electronic test catalog for collection instructions. 5. For positive blood cultures, a rapid molecular test may be performed for organism identification using the jonh ePlex blood culture identification panel for gram positive (BCID-GP) and gram negative (BCID-GN) organisms. This nucleic acid amplification test detects microbial DNA in positive blood culture broth. This assay has been cleared by the [place] Food and Drug Administration and its performance characteristics have been verified by the [facility] Microbiology Laboratory. For questions about this culture, contact the Microbiology Laboratory at [phone]. Interpretive data was last revised on 24. Quinn Yanes MD LAB MICROBIOLOGY - GEN ERAL ORDERABLES Final Result [facility] [place] [address] * Blood culture Blood Peripheral (11/27/2024 3:35 PM CDT) Report Final Report: No growth Blood (Peripheral) 11/27/2024 3:35 PM CDT 11/27/2024 3:46 PM CDT Narrative [facility] - 12/01/2024 4:01 PM CDT Draw Blood cultures before administration of Antibiotics Collection->Peripheral 1. Blood cultures are incubated for 4 days on a continuously monitored blood culture system. The first report of a negative culture is issued within 24 hours of receipt of the specimen in the laboratory. 2. Positive culture results are reported as soon as they are detected. 3. The most important factor for detection of microbes in the setting of bloodstream infection is the volume of blood submitted for culture. Failure to collect an optimal blood volume can result in false negative blood cultures. 4. For pediatric patients, the recommended blood volume to collect follows a weight based strategy. See the electronic test catalog for collection instructions. 5. For positive blood cultures, a rapid molecular test may be performed for organism identification using the [employer] ePlex blood culture identification panel for gram positive (BCID-GP) and gram negative (BCID-GN) organisms. This nucleic acid amplification test detects microbial DNA in positive blood culture broth. This assay has been cleared by the [place] Food and Drug Administration and its performance characteristics have been verified by the [facility] Microbiology Laboratory. For questions about this culture, contact the Microbiology Laboratory at [phone]. Interpretive data was last revised on 24. Quinn Yanes MD LAB MICROBIOLOGY - GEN ERAL ORDERABLES Final Result Performing Organization Address [facility]/ZIP Co de Phone Number [facility] [place] [address] * ECG 12-LEAD (11/27/2024 3:34 PM CDT) Narrative [facility] - 11/27/2024 3:34 PM CDT Gómez Hidalgo MD PhD 11/27/2024 5:05 PM ECG 12 lead Date/Time: 11/27/2024 3:34 PM Performed by: Quinn Yanes MD Authorized by: Tyra Samuel MD Comments: Comparison study 03/21/24. Study interpretation significantly limited by artifact. Normal sinus rhythm vs Aflutter with 3:1 conduction, singular PVC, 1st degree AV block (CO 220ms). HR 95. Normal axis. No STEMI. Lateral T-wave inversions. Q-waves and high lateral leads. Lateral T-wave inversions are present on prior study, other findings are new. No acute injury pattern. Further workup in the ED Tyra Samuel MD ECG ORDERABLES Final Result Performing Organization Address City/[facility]/ZIP Co de Phone Number [facility] * (ABNORMAL) POC Blood Gas and Chemistries, Venous - (11/27/2024 3:30 PM CDT) pH, Solo POC 7.40 7.32 - 7.43 pCO2, solo POC 43 40 - 50 mmHg [facility] pO2, solo POC <20(C) mmHg [facility] Na, POC 132(L) 135 - 145 mmol/L [facility] K POC 3.3 3.3 - 4.9 mmol/L [facility] Comment: Interpretive Data Not all point of care methods assess for hemolysis. Confirm with instrument and retest K+ if not consistent with clinical signs and symptoms. Current Interpretive Data was last revised on 2023. Cl, POC 97 97 - 110 mmol/L [facility] Ionized Ca, POC 4.69 4.50 - 5.10 mg/dL [facility] Glucose, POC 134 70 - 199 mg/dL [facility] Lactate POC 1.9 0.7 - 2.0 mmol/L [facility] MetHb, Solo POC 0.2 0.0 - 1.9 % [facility] O2 Sat, Solo POC (Keyla) 22 % [facility] Base excess, POC 1.5 mmol/L [facility] Hct, POC 33.0(L) 36.3 - 45.3 % [facility] Total Hb, POC 10.9(L) 11.9 - 15.5 g/dL [facility] Blood 11/27/2024 3:30 PM CDT 11/27/2024 3:30 PM CDT us Leanne Grossman MD LAB POCT ORDERAB LES - DEVICE Final Result [facility] [place] [address] * (ABNORMAL) Sepsis Lactate w/ Reflex (11/27/2024 3:28 PM CDT) Sepsis Lactate 2.2(H) 0.7 - 2.0 mmol/L Comment:Code Blue Specimen Blood 11/27/2024 3:28 PM CDT 11/27/2024 3:37 PM CDT Tyra Samuel MD LAB BLOOD ORDERA BLES Final Result [facility] [place] [address] * (ABNORMAL) Differential, auto (11/27/2024 3:28 PM CDT) Neutrophil abs 9.70(H) 1.50 - 6.50 K/cumm Imm gran abs 0.09 0.00 - 0.10 K/cumm [facility] Lymphocyte abs 1.33 0.80 - 3.30 K/cumm [facility] Monocyte abs 1.10(H) 0.20 - 0.80 K/cumm [facility] Eosinophil abs 0.00 0.00 - 0.50 K/cumm [facility] Basophil abs 0.02 0.00 - 0.10 K/cumm [facility] Neutrophil pct 79.2 % [facility] Comment: Interpretive Data Percent cell count reference ranges are not reported, since discordance with absolute values may lead to misinterpretation of CBC data. Current Interpretive Data was last revised on 2017. Imm gran pct 0.7 % [facility] Comment: Interpretive Data Percent cell count reference ranges are not reported, since discordance with absolute values may lead to misinterpretation of CBC data. Current Interpretive Data was last revised on 2017. Lymphocyte pct 10.9 % [facility] Comment: Interpretive Data Percent cell count reference ranges are not reported, since discordance with absolute values may lead to misinterpretation of CBC data. Current Interpretive Data was last revised on 2017. Monocyte pct 9.0 % [facility] Comment: Interpretive Data Percent cell count reference ranges are not reported, since discordance with absolute values may lead to misinterpretation of CBC data. Current Interpretive Data was last revised on 2017. Eosinophil pct 0.0 % [facility] Comment: Interpretive Data Percent cell count reference ranges are not reported, since discordance with absolute values may lead to misinterpretation of CBC data. Current Interpretive Data was last revised on 2017. Basophil pct 0.2 % [facility] Comment: Interpretive Data Percent cell count reference ranges are not reported, since discordance with absolute values may lead to misinterpretation of CBC data. Current Interpretive Data was last revised on 2017. Blood 11/27/2024 3:28 PM CDT 11/27/2024 3:37 PM CDT Tyra Samuel MD LAB BLOOD ORDERA BLES Final Result [facility] [place] [address] * (ABNORMAL) CBC with auto differential (11/27/2024 3:28 PM CDT) WBC 12.24(H) 3.80 - 9.90 K/cumm Hgb 10.3(L) 11.9 - 15.5 g/dL [facility] Hct 30.2(L) 35.6 - 45.5 % [facility] Plt 87(L) 150 - 400 K/cumm [facility] MPV 12.1 9.1 - 12.3 fL [facility] RBC 3.21(L) 3.90 - 5.20 M/cumm [facility] MCV 94.1 81.3 - 96.4 fL [facility] MCH 32.1 27.1 - 33.3 pg [facility] MCHC 34.1 32.3 - 35.7 g/dL [facility] RDW CV 13.5 11.1 - 14.9 % [facility] RDW SD 46.5 35.7 - 48.1 fL [facility] NRBC abs 0.00 0.00 - 0.01 K/cumm [facility] Blood 11/27/2024 3:28 PM CDT 11/27/2024 3:37 PM CDT Tyra Samuel MD LAB BLOOD ORDERA BLES Final Result Performing Organization Address [facility] [place] [address] * (ABNORMAL) aPTT (11/27/2024 3:28 PM CDT) aPTT 23(L) 26 - 38 sec Comment: Code Blue Specimen Interpretive Data Heparin therapeutic range: 66.0 - 100.0 seconds. Range based on correlation with therapeutic heparin activity range of 0.3 - 0.7 Units/mL. Current interpretive data was last revised on 2023. Blood 11/27/2024 3:28 PM CDT 11/27/2024 3:37 PM CDT Quinn Yanes MD LAB BLOOD ORDERABLES F inal Result Performing Organization Address [facility] [place] [address] * Protime-INR (11/27/2024 3:28 PM CDT) PT 13.1 10.2 - 13.5 sec Comment:Code Blue Specimen INR 1.16 0.90 - 1.20 [facility] Comment: Code Blue Specimen Interpretive data Oral anticoagulant therapeutic ranges: Venous thromboembolism prophylaxis or treatment: 2.0-3.0 CARDIOLOGY Standard range: 2.0-3.0 High-intensity range: 2.5-3.5 Refer to indication-specific guidelines for appropriate target ranges for prosthetic heart valve replacement. Current interpretive data was last revised on 2019. Blood 11/27/2024 3:28 PM CDT 11/27/2024 3:37 PM CDT Quinn Yanes MD LAB BLOOD ORDERABLES F inal Result Performing Organization Address [facility] Co de Phone Number [facility] [employer] [place] [phone] * CT Recon Thoracic and Lumbar Spine WO Contrast (C) (11/27/2024 3:16 PM CDT) Anatomical Region Laterality Modality Spine N/A Computed Tomogra phy 11/27/2024 4:30 PM CDT Impressions 11/27/2024 5:48 PM CDT 1. No acute intracranial process. 2. No evidence of acute fracture in the cervical, thoracic, or lumbar spine. Dictated by: Kayode Paul M.D. The radiology attending physician has personally reviewed this study, and had reviewed and/or edited this written report and agrees with it. Electronically signed by: Good Rowland M.D. Narrative 11/27/2024 5:48 PM CDT EXAMINATION: 1. CT head without contrast 2. CT of the cervical spine without contrast 3. CT of the thoracic spine with contrast 4. CT of the lumbar spine with contrast HISTORY: Ground-level fall with hypotension. TECHNIQUE: CT of the head was performed with images acquired from skull base to vertex without intravenous contrast. CT of the cervical spine was performed according to the standard protocol without intravenous contrast. Dedicated reconstructions of the thoracic and lumbar spine were generated using data from a CT of the chest, abdomen, and pelvis acquired with intravenous contrast according to standard protocol. COMPARISON: CT head 01/06/2021 FINDINGS: HEAD: Prominent extra-axial spaces bilaterally secondary to age-related cerebral atrophy/volume loss in addition with mild ex vacuo dilatation of the ventricles. 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 There are scattered hypodensities in the periventricular and subcortical white matter, which are nonspecific but likely represent sequelae of chronic small vessel ischemia. There is no acute intracranial hemorrhage. Ventricles are of normal size and morphology. No mass effect or midline shift is present. The lee-white matter differentiation is normal. Bilateral lens replacements. The visualized portions of the mastoids are normal. The visualized portions of the paranasal sinuses are normal. No fractures are identified. CERVICAL SPINE: Incomplete posterior arch of C1. Mild straightening of the cervical spine. There is no acute fracture. Vertebral bodies are normal in height without compression fractures. Multilevel degenerative disc disease with disc space height and endplate degeneration, most notable at C5-C6 and C6-C7. The craniocervical junction is normal. Limited views of the skull base appear normal. The sphenoid sinus is well aerated. No soft tissue abnormality is identified. Multilevel degenerative changes in cervical spine with moderate left neural foraminal stenosis at C6-C7. THORACIC SPINE: There are 12 rib-bearing thoracic vertebra. The alignment of the thoracic spine is normal. There is no acute fracture. Vertebral bodies are normal in height without compression fractures. Intervertebral disk heights are normal. There is no soft tissue abnormality. The thoracic aorta is normal. The disks are normal in configuration. There is multilevel mild facet hypertrophy. There is no neuroforaminal stenosis. There is no spinal canal stenosis. Severe atherosclerotic calcifications of the thoracic and abdominal aorta, with postsurgical changes of abdominal aortic aneurysm repair better evaluated on same day CT. LUMBAR SPINE: Postsurgical changes of L5-S1 posterior instrumented fusion. The alignment of the lumbar spine is normal. There is no acute fracture. The vertebral bodies are normal in height without compression fractures. There is posterior disc bulge and osteophyte complex at L1-L2 resulting in moderate central canal stenosis There is no soft tissue abnormality. Multilevel sqpl-yx-daxvungu facet arthropathy with moderate bilateral neural foraminal stenosis at L3-L4 For detailed findings within the chest and abdomen, please see same day dictation from body CT. Procedure Note Good Rowland MD PhD - 11/27/2024 EXAMINATION: 1. CT head without contrast 2. CT of the cervical spine without contrast 3. CT of the thoracic spine with contrast 4. CT of the lumbar spine with contrast HISTORY: Ground-level fall with hypotension. TECHNIQUE: CT of the head was performed with images acquired from skull base to vertex without intravenous contrast. CT of the cervical spine was performed according to the standard protocol without intravenous contrast. Dedicated reconstructions of the thoracic and lumbar spine were generated using data from a CT of the chest, abdomen, and pelvis acquired with intravenous contrast according to standard protocol. COMPARISON: CT head 01/06/2021 FINDINGS: HEAD: Prominent extra-axial spaces bilaterally secondary to age-related cerebral atrophy/volume loss in addition with mild ex vacuo dilatation of the ventricles. 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 There are scattered hypodensities in the periventricular and subcortical white matter, which are nonspecific but likely represent sequelae of chronic small vessel ischemia. There is no acute intracranial hemorrhage. Ventricles are of normal size and morphology. No mass effect or midline shift is present. The lee-white matter differentiation is normal. Bilateral lens replacements. The visualized portions of the mastoids are normal. The visualized portions of the paranasal sinuses are normal. No fractures are identified. CERVICAL SPINE: Incomplete posterior arch of C1. Mild straightening of the cervical spine. There is no acute fracture. Vertebral bodies are normal in height without compression fractures. Multilevel degenerative disc disease with disc space height and endplate degeneration, most notable at C5-C6 and C6-C7. The craniocervical junction is normal. Limited views of the skull base appear normal. The sphenoid sinus is well aerated. No soft tissue abnormality is identified. Multilevel degenerative changes in cervical spine with moderate left neural foraminal stenosis at C6-C7. THORACIC SPINE: There are 12 rib-bearing thoracic vertebra. The alignment of the thoracic spine is normal. There is no acute fracture. Vertebral bodies are normal in height without compression fractures. Intervertebral disk heights are normal. There is no soft tissue abnormality. The thoracic aorta is normal. The disks are normal in configuration. There is multilevel mild facet hypertrophy. There is no neuroforaminal stenosis. There is no spinal canal stenosis. Severe atherosclerotic calcifications of the thoracic and abdominal aorta, with postsurgical changes of abdominal aortic aneurysm repair better evaluated on same day CT. LUMBAR SPINE: Postsurgical changes of L5-S1 posterior instrumented fusion. The alignment of the lumbar spine is normal. There is no acute fracture. The vertebral bodies are normal in height without compression fractures. There is posterior disc bulge and osteophyte complex at L1-L2 resulting in moderate central canal stenosis There is no soft tissue abnormality. Multilevel asem-co-yucepsxw facet arthropathy with moderate bilateral neural foraminal stenosis at L3-L4 For detailed findings within the chest and abdomen, please see same day dictation from body CT. IMPRESSION: 1. No acute intracranial process. 2. No evidence of acute fracture in the cervical, thoracic, or lumbar spine. Dictated by: Kayode Paul M.D. The radiology attending physician has personally reviewed this study, and had reviewed and/or edited this written report and agrees with it. Electronically signed by: Good Rowland M.D. Augustus Cotto MD IMG CT PROCEDURES Final Result * CT Head and Cervical Spine WO Contrast (11/27/2024 3:16 PM CDT) Anatomical Region Laterality Modality Head and Neck N/A Computed Tomogra phy 11/27/2024 4:30 PM CDT Impressions 11/27/2024 5:48 PM CDT 1. No acute intracranial process. 2. No evidence of acute fracture in the cervical, thoracic, or lumbar spine. Dictated by: Kaydoe Paul M.D. The radiology attending physician has personally reviewed this study, and had reviewed and/or edited this written report and agrees with it. Electronically signed by: Good Rowland M.D. Narrative 11/27/2024 5:48 PM CDT EXAMINATION: 1. CT head without contrast 2. CT of the cervical spine without contrast 3. CT of the thoracic spine with contrast 4. CT of the lumbar spine with contrast HISTORY: Ground-level fall with hypotension. TECHNIQUE: CT of the head was performed with images acquired from skull base to vertex without intravenous contrast. CT of the cervical spine was performed according to the standard protocol without intravenous contrast. Dedicated reconstructions of the thoracic and lumbar spine were generated using data from a CT of the chest, abdomen, and pelvis acquired with intravenous contrast according to standard protocol. COMPARISON: CT head 01/06/2021 FINDINGS: HEAD: Prominent extra-axial spaces bilaterally secondary to age-related cerebral atrophy/volume loss in addition with mild ex vacuo dilatation of the ventricles. 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 There are scattered hypodensities in the periventricular and subcortical white matter, which are nonspecific but likely represent sequelae of chronic small vessel ischemia. There is no acute intracranial hemorrhage. Ventricles are of normal size and morphology. No mass effect or midline shift is present. The lee-white matter differentiation is normal. Bilateral lens replacements. The visualized portions of the mastoids are normal. The visualized portions of the paranasal sinuses are normal. No fractures are identified. CERVICAL SPINE: Incomplete posterior arch of C1. Mild straightening of the cervical spine. There is no acute fracture. Vertebral bodies are normal in height without compression fractures. Multilevel degenerative disc disease with disc space height and endplate degeneration, most notable at C5-C6 and C6-C7. The craniocervical junction is normal. Limited views of the skull base appear normal. The sphenoid sinus is well aerated. No soft tissue abnormality is identified. Multilevel degenerative changes in cervical spine with moderate left neural foraminal stenosis at C6-C7. THORACIC SPINE: There are 12 rib-bearing thoracic vertebra. The alignment of the thoracic spine is normal. There is no acute fracture. Vertebral bodies are normal in height without compression fractures. Intervertebral disk heights are normal. There is no soft tissue abnormality. The thoracic aorta is normal. The disks are normal in configuration. There is multilevel mild facet hypertrophy. There is no neuroforaminal stenosis. There is no spinal canal stenosis. Severe atherosclerotic calcifications of the thoracic and abdominal aorta, with postsurgical changes of abdominal aortic aneurysm repair better evaluated on same day CT. LUMBAR SPINE: Postsurgical changes of L5-S1 posterior instrumented fusion. The alignment of the lumbar spine is normal. There is no acute fracture. The vertebral bodies are normal in height without compression fractures. There is posterior disc bulge and osteophyte complex at L1-L2 resulting in moderate central canal stenosis There is no soft tissue abnormality. Multilevel cnzq-dw-zwvjvims facet arthropathy with moderate bilateral neural foraminal stenosis at L3-L4 For detailed findings within the chest and abdomen, please see same day dictation from body CT. Procedure Note Good Rowland MD PhD - 11/27/2024 EXAMINATION: 1. CT head without contrast 2. CT of the cervical spine without contrast 3. CT of the thoracic spine with contrast 4. CT of the lumbar spine with contrast HISTORY: Ground-level fall with hypotension. TECHNIQUE: CT of the head was performed with images acquired from skull base to vertex without intravenous contrast. CT of the cervical spine was performed according to the standard protocol without intravenous contrast. Dedicated reconstructions of the thoracic and lumbar spine were generated using data from a CT of the chest, abdomen, and pelvis acquired with intravenous contrast according to standard protocol. COMPARISON: CT head 01/06/2021 FINDINGS: HEAD: Prominent extra-axial spaces bilaterally secondary to age-related cerebral atrophy/volume loss in addition with mild ex vacuo dilatation of the ventricles. 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 There are scattered hypodensities in the periventricular and subcortical white matter, which are nonspecific but likely represent sequelae of chronic small vessel ischemia. There is no acute intracranial hemorrhage. Ventricles are of normal size and morphology. No mass effect or midline shift is present. The lee-white matter differentiation is normal. Bilateral lens replacements. The visualized portions of the mastoids are normal. The visualized portions of the paranasal sinuses are normal. No fractures are identified. CERVICAL SPINE: Incomplete posterior arch of C1. Mild straightening of the cervical spine. There is no acute fracture. Vertebral bodies are normal in height without compression fractures. Multilevel degenerative disc disease with disc space height and endplate degeneration, most notable at C5-C6 and C6-C7. The craniocervical junction is normal. Limited views of the skull base appear normal. The sphenoid sinus is well aerated. No soft tissue abnormality is identified. Multilevel degenerative changes in cervical spine with moderate left neural foraminal stenosis at C6-C7. THORACIC SPINE: There are 12 rib-bearing thoracic vertebra. The alignment of the thoracic spine is normal. There is no acute fracture. Vertebral bodies are normal in height without compression fractures. Intervertebral disk heights are normal. There is no soft tissue abnormality. The thoracic aorta is normal. The disks are normal in configuration. There is multilevel mild facet hypertrophy. There is no neuroforaminal stenosis. There is no spinal canal stenosis. Severe atherosclerotic calcifications of the thoracic and abdominal aorta, with postsurgical changes of abdominal aortic aneurysm repair better evaluated on same day CT. LUMBAR SPINE: Postsurgical changes of L5-S1 posterior instrumented fusion. The alignment of the lumbar spine is normal. There is no acute fracture. The vertebral bodies are normal in height without compression fractures. There is posterior disc bulge and osteophyte complex at L1-L2 resulting in moderate central canal stenosis There is no soft tissue abnormality. Multilevel rbdj-ee-ahmhiwwc facet arthropathy with moderate bilateral neural foraminal stenosis at L3-L4 For detailed findings within the chest and abdomen, please see same day dictation from body CT. IMPRESSION: 1. No acute intracranial process. 2. No evidence of acute fracture in the cervical, thoracic, or lumbar spine. Dictated by: Kayode Paul M.D. The radiology attending physician has personally reviewed this study, and had reviewed and/or edited this written report and agrees with it. Electronically signed by: Good Rowland M.D. us Augustus Cotto MD IMG CT PROCEDURES Final Result * CT Chest Abdomen Pelvis W Contrast (11/27/2024 3:16 PM CDT) Anatomical Region Laterality Modality Body N/A Computed Tomogra phy 11/27/2024 4:20 PM CDT Impressions 11/27/2024 4:50 PM CDT 1. Severe left sided colitis. No acute traumatic injury of the chest, abdomen, or pelvis. 2. Stable suprarenal abdominal aortic aneurysm with postsurgical changes of the infrarenal abdominal aortic aneurysm. Bilateral renal artery narrowing. Dictated by: Yehuda Obregon M.D. The radiology attending physician has personally reviewed this study, and had reviewed and/or edited this written report and agrees with it. Electronically signed by: Sandrine Sanderson M.D. Narrative 11/27/2024 4:50 PM CDT EXAMINATION: Computed tomography of the chest, abdomen and pelvis with intravenous contrast HISTORY: 84-year-old female status post ground level fall. Patient with history of repaired AAA and hypotensive on arrival. TECHNIQUE: Transaxial computed tomographic images of the chest, abdomen and pelvis were obtained with intravenous contrast according to the standard protocol after the uneventful administration of 93 mL Opti-Ray 350 intravenous contrast. COMPARISON: CT 06/06/2023 FINDINGS: Chest: Patent central airways. Biapical pleural-parenchymal scarring. Mild bibasilar atelectasis. No pulmonary consolidation, pleural effusion, or pneumothorax. No supraclavicular, axillary, mediastinal, or hilar lymphadenopathy. Nondistended esophagus. Normal caliber thoracic aorta with extensive atherosclerotic calcification and some areas of irregular noncalcified plaque. Normal caliber main pulmonary artery. Normal heart size. Extensive coronary artery calcifications. No pericardial effusion. The imaged thyroid appears normal. Abdomen/Pelvis: Normal liver size and contour. No suspicious hepatic lesions. Cholelithiasis and dependently layering sludge in the gallbladder. No intrahepatic biliary ductal dilation. Mild dilation of the common bile duct, within normal limits for patient's age. Normal pancreas. Normal spleen. Normal adrenal glands. Kidneys enhance symmetrically without hydronephrosis. No suspicious renal masses. Normal urinary bladder. Uterus is surgically absent. No suspicious adnexal masses. Small duodenal lipoma. Extensive wall thickening and hypoattenuation of the entire left hemicolon with surrounding fat stranding and mucosal hyperemia consistent with severe colitis. Anastomotic suture is noted in the sigmoid. No organized fluid collection. The hepatic veins are patent. The IVC is normal in caliber. The portal vein, splenic vein, and the SMV are patent. There is a suprarenal abdominal aortic aneurysm with postsurgical changes of the infrarenal open abdominal aortic aneurysm repair. The repaired segment is unchanged in appearance dating back to 2018. The unrepaired suprarenal segment is also unchanged since 2019 measuring around 3.4 cm in AP dimension, sagittal image 67, stable since 2018. Multifocal atherosclerotic disease is noted with dense calcifications causing moderate to severe narrowing at the origins of bilateral renal arteries. CORNELIO origin is likely excluded. There is no abdominal or pelvic lymphadenopathy. There is no ascites or pneumoperitoneum. No acute fractures or aggressive osseous lesions. Procedure Note Sandrine Sanderson MD - 11/27/2024 EXAMINATION: Computed tomography of the chest, abdomen and pelvis with intravenous contrast HISTORY: 84-year-old female status post ground level fall. Patient with history of repaired AAA and hypotensive on arrival. TECHNIQUE: Transaxial computed tomographic images of the chest, abdomen and pelvis were obtained with intravenous contrast according to the standard protocol after the uneventful administration of 93 mL Opti-Ray 350 intravenous contrast. COMPARISON: CT 06/06/2023 FINDINGS: Chest: Patent central airways. Biapical pleural-parenchymal scarring. Mild bibasilar atelectasis. No pulmonary consolidation, pleural effusion, or pneumothorax. No supraclavicular, axillary, mediastinal, or hilar lymphadenopathy. Nondistended esophagus. Normal caliber thoracic aorta with extensive atherosclerotic calcification and some areas of irregular noncalcified plaque. Normal caliber main pulmonary artery. Normal heart size. Extensive coronary artery calcifications. No pericardial effusion. The imaged thyroid appears normal. Abdomen/Pelvis: Normal liver size and contour. No suspicious hepatic lesions. Cholelithiasis and dependently layering sludge in the gallbladder. No intrahepatic biliary ductal dilation. Mild dilation of the common bile duct, within normal limits for patient's age. Normal pancreas. Normal spleen. Normal adrenal glands. Kidneys enhance symmetrically without hydronephrosis. No suspicious renal masses. Normal urinary bladder. Uterus is surgically absent. No suspicious adnexal masses. Small duodenal lipoma. Extensive wall thickening and hypoattenuation of the entire left hemicolon with surrounding fat stranding and mucosal hyperemia consistent with severe colitis. Anastomotic suture is noted in the sigmoid. No organized fluid collection. The hepatic veins are patent. The IVC is normal in caliber. The portal vein, splenic vein, and the SMV are patent. There is a suprarenal abdominal aortic aneurysm with postsurgical changes of the infrarenal open abdominal aortic aneurysm repair. The repaired segment is unchanged in appearance dating back to 2018. The unrepaired suprarenal segment is also unchanged since 2019 measuring around 3.4 cm in AP dimension, sagittal image 67, stable since 2018. Multifocal atherosclerotic disease is noted with dense calcifications causing moderate to severe narrowing at the origins of bilateral renal arteries. CORNELIO origin is likely excluded. There is no abdominal or pelvic lymphadenopathy. There is no ascites or pneumoperitoneum. No acute fractures or aggressive osseous lesions. IMPRESSION: 1. Severe left sided colitis. No acute traumatic injury of the chest, abdomen, or pelvis. 2. Stable suprarenal abdominal aortic aneurysm with postsurgical changes of the infrarenal abdominal aortic aneurysm. Bilateral renal artery narrowing. Dictated by: Yehuda Obregon M.D. The radiology attending physician has personally reviewed this study, and had reviewed and/or edited this written report and agrees with it. Electronically signed by: Sandrine Sanderson M.D. Augustus Cotto MD IMG CT PROCEDURES Final Result * POCUS Fast (11/27/2024 2:54 PM CDT) Anatomical Region Laterality Modality Other 11/27/2024 2:41 PM CDT Narrative 12/03/2024 1:01 PM CDT Performed by: Chad Paez FAST: Exam Information: Exam type: Diagnostic Exam Occurence: Initial Indication(s) for Exam: Penetrating trauma Trauma location: Abdomen FAST exam components performed (select ALL that apply): Thoracic, Cardiac, Abdominal Findings: Hepatorenal free fluid: Absent Perisplenic free fluid: Absent Suprapubic free fluid: Absent Findings lung: Right thoracic fluid: Absent Right lung sliding: Present Left thoracic fluid: Absent Left lung sliding: Present Findings cardiac: Pericardial effusion: Absent Interpretation: Peritoneal free fluid: Absent Pericardial effusion: Absent Right lung pneumothorax: Absent Left lung pneumothorax: Absent Electronically signed by Chad Paez on November at 3:33 PM I have reviewed the images & the resident's interpretation. I agree with the findings. Images on file. Electronically signed by Balaji Costello on Tuesday, December 03, 2024 at 1:01 PM I have reviewed the images & the resident's interpretation. I agree with the findings. Images on file. Procedure Note Balaji Costello MD - 12/03/2024 Performed by: Chad Paez FAST: Exam Information: Exam type: Diagnostic Exam Occurence: Initial Indication(s) for Exam: Penetrating trauma Trauma location: Abdomen FAST exam components performed (select ALL that apply): Thoracic,Cardiac, Abdominal Findings: Hepatorenal free fluid: Absent Perisplenic free fluid: Absent Suprapubic free fluid: Absent Findings lung: Right thoracic fluid: Absent Right lung sliding: Present Left thoracic fluid: Absent Left lung sliding: Present Findings cardiac: Pericardial effusion: Absent Interpretation: Peritoneal free fluid: Absent Pericardial effusion: Absent Right lung pneumothorax: Absent Left lung pneumothorax: Absent Electronically signed by Chad Paez on November at3:33 PM I have reviewed the images & the resident's interpretation. I agree withthe findings. Images on file. Electronically signed by Balaji Costello on Tuesday, December 03, 2024 at1:01 PM I have reviewed the images & the resident's interpretation. I agree withthe findings. Images on file. us Balaji Costello MD POCUS ORDERABLES Final Re sult * Chest xray, 1 view, portable (11/27/2024 2:53 PM CDT) Anatomical Region Laterality Modality Body, Chest N/A Computed Radiogr aphy 11/27/2024 3:00 PM CDT Impressions 11/27/2024 3:01 PM CDT Chest: The tips of the lung apices are excluded from the image. Within this limitation, no pulmonary consolidation, pleural effusion, pneumothorax. Normal cardiomediastinal silhouette. A coronary artery stent is present. No displaced rib fracture identified. Pelvis: Partially imaged lumbosacral instrumentation. Partially imaged left femoral intramedullary nail. Vascular calcifications are present. No acute fracture identified. The femoral heads appear aligned with the acetabula on this single view study. Dictated by: Yehuda Obregon M.D. The radiology attending physician has personally reviewed this study, and had reviewed and/or edited this written report and agrees with it. Electronically signed by: Indira Egan M.D. Narrative 11/27/2024 3:01 PM CDT EXAMINATION: XR CHEST 1 VIEW, XR PELVIS 1 OR 2 VIEWS HISTORY: 84-year-old female status post ground level fall COMPARISON: None. Procedure Note Indira Egan MD - 11/27/2024 EXAMINATION: XR CHEST 1 VIEW, XR PELVIS 1 OR 2 VIEWS HISTORY: 84-year-old female status post ground level fall COMPARISON: None. IMPRESSION: Chest: The tips of the lung apices are excluded from the image. Within this limitation, no pulmonary consolidation, pleural effusion, pneumothorax. Normal cardiomediastinal silhouette. A coronary artery stent is present. No displaced rib fracture identified. Pelvis: Partially imaged lumbosacral instrumentation. Partially imaged left femoral intramedullary nail. Vascular calcifications are present. No acute fracture identified. The femoral heads appear aligned with the acetabula on this single view study. Dictated by: Yehuda Obregon M.D. The radiology attending physician has personally reviewed this study, and had reviewed and/or edited this written report and agrees with it. Electronically signed by: Indira Egan M.D. us Balaji Costello MD IMG XR PROCEDURES Final R esult * Pelvis xray, 1 view, portable (11/27/2024 2:51 PM CDT) Anatomical Region Laterality Modality Body, Pelvis N/A Computed Radiogr aphy 11/27/2024 3:00 PM CDT Impressions 11/27/2024 3:01 PM CDT Chest: The tips of the lung apices are excluded from the image. Within this limitation, no pulmonary consolidation, pleural effusion, pneumothorax. Normal cardiomediastinal silhouette. A coronary artery stent is present. No displaced rib fracture identified. Pelvis: Partially imaged lumbosacral instrumentation. Partially imaged left femoral intramedullary nail. Vascular calcifications are present. No acute fracture identified. The femoral heads appear aligned with the acetabula on this single view study. Dictated by: Yehuda Obregon M.D. The radiology attending physician has personally reviewed this study, and had reviewed and/or edited this written report and agrees with it. Electronically signed by: Indira Egan M.D. Narrative 11/27/2024 3:01 PM CDT EXAMINATION: XR CHEST 1 VIEW, XR PELVIS 1 OR 2 VIEWS HISTORY: 84-year-old female status post ground level fall COMPARISON: None. Procedure Note Indira Egan MD - 11/27/2024 EXAMINATION: XR CHEST 1 VIEW, XR PELVIS 1 OR 2 VIEWS HISTORY: 84-year-old female status post ground level fall COMPARISON: None. IMPRESSION: Chest: The tips of the lung apices are excluded from the image. Within this limitation, no pulmonary consolidation, pleural effusion, pneumothorax. Normal cardiomediastinal silhouette. A coronary artery stent is present. No displaced rib fracture identified. Pelvis: Partially imaged lumbosacral instrumentation. Partially imaged left femoral intramedullary nail. Vascular calcifications are present. No acute fracture identified. The femoral heads appear aligned with the acetabula on this single view study. Dictated by: Yehuda Obregon M.D. The radiology attending physician has personally reviewed this study, and had reviewed and/or edited this written report and agrees with it. Electronically signed by: Indira Egan M.D. us Balaji Costello MD IMG XR PROCEDURES Final R esult * (ABNORMAL) eGFR (11/27/2024 2:49 PM CDT) eGFR 18(L) >=60 mL/min/1. 73 m2 Comment: Interpretive Data Reference Interval Normal >/= 90 mL/min/1.73m2 Mildly decreased* 60 - 89 mL/min/1.73m2 Mildly to moderately decreased 45 - 59 mL/min/1.73m2 Moderately to severely decreased 30 - 44 mL/min/1.73m2 Severely decreased 15 - 29 mL/min/1.73m2 Kidney Failure < 15 mL/min/1.73m2 *Relative to young adult level Estimated glomerular filtration rate is determined by the 2020 CKD-EPI equation recommended by the National Kidney Foundation (A Unifying Approach to GFR Estimation: Recommendations of the NKF-ASK Task Force on Reassessing the Inclusion of Race in Diagnosing Kidney Disease, JASN 2020). The CKD-EPI equation should not be used for patients with unstable renal function and has not been validated in children and those over 70. Current interpretive data was last reviewed 2021. Blood 11/27/2024 2:49 PM CDT 11/27/2024 4:42 PM CDT us Gómez Hidalgo MD PhD LAB BLOOD ORDERABLES Fi nal Result [facility] [place] [address] * (ABNORMAL) Pro B-type natriuretic peptide (11/27/2024 2:49 PM CDT) NT-proBNP 634(H) <=450 pg/mL Comment: Interpretive Comments: A. Dyspnea in Acute Care Setting All Ages: < 300 pg/ml, acute heart failure unlikely. < 50 yrs: 300 - 450 pg/ml, further investigation warranted. > 450 pg/ml, acute heart failure likely. 50 - 74 yrs: 300 - 900 pg/ml, further investigation warranted. > 900 pg/ml, acute heart failure likely . > or = 75 yrs: 450 - 1800 pg/ml, further investigation warranted. > 1800 pg/ml, acute heart failure likely. B. Non-acute Setting < 75 yrs < 125 pg/ml, rules out heart failure. > or = 125 pg/ml, further investigation warranted. > or = 75 yrs < 450 pg/ml, rules out heart failure. > or = 450 pg/ml, further investigation warranted. - Knowledge of each individual patient's NT-proBNP range may be more useful than using similar cut-points for every patient. Please note that marked elevations in NT-proBNP levels may be observed in state other than Left Ventricular Congestive Failure, including: acute coronary syndromes, right heart strain/failure (including pulmonary embolism and cor pulmonale), critical illness, renal failure, as well as advanced age. - References: 1. Cirilo BOBBY et.al. Eur Heart J. 2006:27:330-337. 2. Mario DINH, Nahum LAMBERT. J. AM Joey Cardiol: Cardiovasc Imag. 2009;2: 216- 225. Interpretive Data Last Revised Date: 2017. Blood 11/27/2024 2:49 PM CDT 11/27/2024 2:55 PM CDT Gómez Hidalgo MD PhD LAB BLOOD ORDERABLES Fi nal Result Performing Organization Address [facility] Phone Number [facility] [place] [address] * Thyroid Function [place] (11/27/2024 2:49 PM CDT) TSH 1.19 0.30 - 4.20 mcIUnit/mL Blood 11/27/2024 2:49 PM CDT 11/27/2024 2:[address] [facility] Gómez Hidalgo MD PhD LAB BLOOD ORDERABLES Fi nal Result Performing Organization Address [facility] de Phone Number [facility] [place] [address] * Type and screen (11/27/2024 2:49 PM CDT) Debbi, indirect Negative ABO Rh A Positive [facility] Blood 11/27/2024 2:49 PM CDT 11/27/2024 2:59 PM CDT Narrative [facility] - 11/27/2024 4:03 PM CDT Has the patient had Daratumumab or Isatuximab in the past 6 months?->Unknown Balaji Costello MD LAB BLOOD BANK TEST ORDER VIJAYA Final Result Performing Organization Address [facility] Co de Phone Number [facility] [place] [address] * Magnesium (11/27/2024 2:49 PM CDT) [facility] Magnesium 1.7 1.4 - 2.5 mg/dL Blood 11/27/2024 2:49 PM CDT 11/27/2024 2:55 PM CDT Gómez Hidalgo MD PhD LAB BLOOD ORDERABLES Fi nal Result Performing Organization Address [facility] Co de Phone Number [facility] [place] [address] * Ethanol (11/27/2024 2:49 PM CDT) [facility] Ethanol <10 <=10 mg/dL Comment: Interpretive Data Legal limit of intoxication > or = 80 mg/dL Levels > or = 400 mg/dL are potentially TOXIC. Current interpretive data was last revised on 2018. Blood 11/27/2024 2:49 PM CDT 11/27/2024 2:55 PM CDT us Balaji Costello MD LAB BLOOD ORDERABLES Christina l Result Performing Organization Address [facility] Co de Phone Number [facility] [place] [address] * (ABNORMAL) Comprehensive metabolic panel (11/27/2024 2:49 PM CDT) [facility] Sodium 133(L) 135 - 145 mmol/L Potassium, pl 3.8 3.3 - 4.9 mmol/L [facility] Comment:Hemolyzed; Potassium value may be falsely elevated by as much as 0.6-1.0 mmol/L. Suggest redraw and reanalysis. Chloride 96(L) 97 - 110 mmol/L [facility] CO2 23 22 - 32 mmol/L [facility] Anion gap 14 2 - 15 mmol/L [facility] BUN 30(H) 6 - 25 mg/dL [facility] Creatinine 2.58(H) 0.60 - 1.10 mg/dL [facility] Glucose 131 70 - 199 mg/dL [facility] Comment: Interpretive Data Fasting glucose >/= 126 mg/dl is diagnostic for diabetes. Fasting is defined as no caloric intake for at least 8 hours. Fasting glucose between 100 mg/dl to 125 mg/dl is diagnostic of prediabetes. In a patient with classic symptoms of hyperglycemia or hyperglycemic crisis, a random glucose >/= 200 mg/dl is diagnostic for diabetes. In the absence of unequivocal hyperglycemia, results should be confirmed by repeat testing. The classification and Diagnosis of Diabetes Diabetes Care 202; 46: S19-S40. Current interpretive data was last revised 2022. Calcium 9.4 8.5 - 10.3 mg/dL [facility] Bilirubin, total 0.7 0.1 - 1.2 mg/dL [facility] Protein, pl 6.6 6.5 - 8.5 g/dL [facility] Albumin 3.7 3.5 - 5.0 g/dL [facility] Alk phos 73 40 - 130 Units/L [facility] ALT 10 7 - 45 Units/L [facility] AST 28 10 - 45 Units/L [facility] Comment:Hemolyzed; result ma y be falsely elevated Blood 11/27/2024 2:49 PM CDT 11/27/2024 2:55 PM CDT Gómez Hidalgo MD PhD LAB BLOOD ORDERABLES Fi nal Result [facility] Department [place] [address] * (ABNORMAL) eGFR (11/21/2024 1:06 PM CDT) eGFR 27(L) >=60 mL/min/1. 73 m2 Comment: Interpretive Data Reference Interval Normal >/= 90 mL/min/1.73m2 Mildly decreased* 60 - 89 mL/min/1.73m2 Mildly to moderately decreased 45 - 59 mL/min/1.73m2 Moderately to severely decreased 30 - 44 mL/min/1.73m2 Severely decreased 15 - 29 mL/min/1.73m2 Kidney Failure < 15 mL/min/1.73m2 *Relative to young adult level Estimated glomerular filtration rate is determined by the 2020 CKD-EPI equation recommended by the National Kidney Foundation (A Unifying Approach to GFR Estimation: Recommendations of the NKF-ASK Task Force on Reassessing the Inclusion of Race in Diagnosing Kidney Disease, JASN 202). The CKD-EPI equation should not be used for patients with unstable renal function and has not been validated in children and those over 70. Current interpretive data was last reviewed 2021. Blood 11/21/2024 1:06 PM CDT 11/21/2024 6:16 PM CDT us Eugenia Tejada MD LAB BLOOD ORDERABLES Fin al Result [address] Department [place] [address] * (ABNORMAL) CBC without differential (11/21/2024 1:06 PM CDT) WBC 6.32 3.80 - 9.90 K/cumm Hgb 11.5(L) 11.9 - 15.5 g/dL [facility] Hct 34.7(L) 35.6 - 45.5 % [facility] Plt 128(L) 150 - 400 K/cumm [facility] MPV 12.4(H) 9.1 - 12.3 fL [facility] RBC 3.59(L) 3.90 - 5.20 M/cumm [facility] MCV 96.7(H) 81.3 - 96.4 fL [facility] MCH 32.0 27.1 - 33.3 pg [facility] MCHC 33.1 32.3 - 35.7 g/dL [facility] RDW CV 13.6 11.1 - 14.9 % [facility] RDW SD 48.4(H) 35.7 - 48.1 fL [facility] NRBC abs 0.00 0.00 - 0.01 K/cumm [facility] Blood Venous blood specimen / Unknown 11/21/2024 1:06 PM CDT 11/21/2024 6:16 PM CDT us Eugenia Tejada MD LAB BLOOD ORDERABLES Fin al Result [facility] [address] [facility] Department [place] [address] * (ABNORMAL) Lipid panel (11/21/2024 1:06 PM CDT) Cholesterol 138 30 - 199 mg/dL Comment: Interpretive Data Ages < or = 19 years Acceptable: <170 mg/dL Borderline high: 170-199 mg/dL High: >or= 200 mg/dL Ages > or = 20 years Desirable: <200 mg/dL Borderline high: 200-239 mg/dL High: >or= 240 mg/dL Literature References: 1. Expert Panel on Integrated Guidelines for Cardiovascular Health and Risk Reduction in Children and Adolescents. Pediatrics 2011;128:S213 2. NCEP Expert Panel. Circulation 2004;110:227 Current Interpretive Data was last revised on 2017. Triglycerides 156(H) <=149 mg/dL [facility] Comment: Interpretive Data Ages < or = 9 years Acceptable: <75 mg/dL Borderline high: 75-99 mg/dL High: >or= 100 mg/dL Ages 10 to 20 years Acceptable: <90 mg/dL Borderline high: 90-129 mg/dL High: >or= 130 mg/dL Ages > or = 20 years Desirable: <150 mg/dL Borderline high: 150-199 mg/dL High: 200-499 mg/dL Very high: >or= 499 mg/dL Literature References: 1. Expert Panel on Integrated Guidelines for Cardiovascular Health and Risk Reduction in Children and Adolescents. Pediatrics 2011;128:S213 2. NCEP Expert Panel. Circulation 2004;110:227 Current Interpretive Data was last revised on 2017. HDL 43 >=40 mg/dL [facility] Comment: Interpretive Data Ages < or = 19 years Acceptable: >45 mg/dL Borderline low: 40-45 mg/dL Low: <40 mg/dL Ages > or = 20 years Desirable: >or= 60 mg/dL Low: <40 mg/dL Literature References: 1. Expert Panel on Integrated Guidelines for Cardiovascular Health and Risk Reduction in Children and Adolescents. Pediatrics 2011;128:S213 2. NCEP Expert Panel. Circulation 2004;110:227 Current Interpretive Data was last revised on 2017. LDL, calculated 68 <=129 mg/dL [facility] Comment: Interpretive Data Ages < or = 19 years Acceptable: <110 mg/dL Borderline high: 110-129 mg/dL High: >or= 130 mg/dL Ages > or = 20 years Optimal: <100 mg/dL Near optimal: 100-129 mg/dL Borderline high: 130-159 mg/dL High: >160 mg/dL Calculated using the Gaurav LDL-C estimating equation. This equation was implemented on 2023. Prior to this date LDL-C was estimated using the Friedewald equation. Literature References: 1. Expert Panel on Integrated Guidelines for Cardiovascular Health and Risk Reduction in Children and Adolescents. Pediatrics 2011;128:S213 2. NCEP Expert Panel. Circulation 2004;110:227 3. Gaurav Davis et al. SANGEETHA Cardiol. 2020 August 14;5(5):540-548. doi: 10.1001/jamacardio.2020.0013 Current Interpretive Data was last revised on 2023. Non-HDL Cholesterol 95 mg/dL [facility] Comment: Interpretive Data Ages < or = 19 years Acceptable: <120 mg/dL Borderline high: 120-144 mg/dL High: >145 mg/dL Ages > or = 20 years When triglycerides are >200 mg/dL, Non-HDL cholesterol is a secondary target of therapy with treatment goals that are 30 mg/dL greater than the LDL cholesterol target. Literature References: 1. Expert Panel on Integrated Guidelines for Cardiovascular Health and Risk Reduction in Children and Adolescents. Pediatrics 2011;128:S213 2. NCEP Expert Panel. Circulation 2004;110:227 Current Interpretive Data was last revised on 2017. Chol/HDL ratio 3 [facility] Blood Venous blood specimen / Unknown 11/21/2024 1:06 PM CDT 11/21/2024 6:16 PM CDT us Eugenia Tejada MD LAB BLOOD ORDERABLES Fin al Result Performing Organization Address [facility] Co ca Phone Number [facility] [address] [facility] Department [place] [address] * (ABNORMAL) Comprehensive metabolic panel (11/21/2024 1:06 PM CDT) Sodium 133(L) 135 - 145 mmol/L Potassium, pl 3.5 3.3 - 4.9 mmol/L [facility] Chloride 94(L) 97 - 110 mmol/L [facility] CO2 27 22 - 32 mmol/L [facility] Anion gap 12 2 - 15 mmol/L [facility] BUN 21 6 - 25 mg/dL [facility] Creatinine 1.85(H) 0.60 - 1.10 mg/dL [facility] Glucose 104 70 - 199 mg/dL [facility] Comment: Interpretive Data Fasting glucose >/= 126 mg/dl is diagnostic for diabetes. Fasting is defined as no caloric intake for at least 8 hours. Fasting glucose between 100 mg/dl to 125 mg/dl is diagnostic of prediabetes. In a patient with classic symptoms of hyperglycemia or hyperglycemic crisis, a random glucose >/= 200 mg/dl is diagnostic for diabetes. In the absence of unequivocal hyperglycemia, results should be confirmed by repeat testing. The classification and Diagnosis of Diabetes Diabetes Care 202; 46: S19-S40. Current interpretive data was last revised 2022. Calcium 9.6 8.5 - 10.3 mg/dL [facility] Bilirubin, total 0.5 0.1 - 1.2 mg/dL [facility] Protein, pl 7.0 6.5 - 8.5 g/dL [facility] Albumin 4.2 3.5 - 5.0 g/dL [facility] Alk phos 79 40 - 130 Units/L [facility] ALT 8 7 - 45 Units/L [facility] AST 23 10 - 45 Units/L [facility] Blood Venous blood specimen / Unknown 11/21/2024 1:06 PM CDT 11/21/2024 6:16 PM CDT Eugenia Tejada MD LAB BLOOD ORDERABLES Fin al Result [facility] [address] [facility] Department [place] [address] from Last 3 Months Additional Health Concerns Active Problems Noted Date Diagnosed Date Initial Follow-Up Appointment 12/03/2024 Insurance MEDICARE MEDICARE MEDICARE MEDICARE Advance Directives For more information, please contact: [phone] Documents on File Type Date Recorded Patient Account Contact Associate Expl anation ADVANCE DIRECTIVE 07/06/2017 12:00 AM * LIMITED - No CPR (Latest Code Status on File) Date Activated Date Inactivated Comments 11/28/2024 4:55 AM 12/02/2024 8:08 PM Question Answer Comments Provide aggressive medical m anagement before a full cardiopulmonary arrest occurs. Use antibiotics, IV Fluids, and medical treatment unless specifically selected below: No intubation * Full Code Date Activated Date Inactivated Comments 11/28/2024 3:48 AM 11/28/2024 4:55 AM * Full Code Date Activated Date Inactivated Comments 03/19/2024 9:07 PM 03/26/2024 4:16 PM * Full Code Date Activated Date Inactivated Comments 09/20/2020 2:28 PM 10/06/2020 6:26 PM * Full Code Date Activated Date Inactivated Comments 07/04/2017 9:57 PM 09/20/2020 9:30 AM Care Teams [employer] Relationship Specialty Start Date End Date Eugenia Tejada MD [address] [address] PCP - General Family Medicine 05/31/22 Diane Campo MD Internal Medicine 01/19/20 [place] [address] [place] [address] Referring Physician Gastroenterology 08/20/20 Matthew Jones MD [address] [place] [address] Surgeon General Surgery 08/24/20 Raheem Hess MD [address] [facility] [address] [place] [address] Referring Physician Nephrology 10/13/21 Pinky Levin, RN [address] [facility] [address] [place] [address] SHOP Outpatient Telecommunications Switch Technician 12/03/24
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
--- OUTSIDE RECORDS SUMMARY | 2024-12-04 14:33 | XMS_ITS ---
Care Plan Created on: December 04, 2024 Arteaga, Savannah Iqbal : 1940 Sex: Female Author Organization [facility] Address [address] [place] [address] Care Team Providers Care Welding Machine Tender Name Role Phone Diane Campo MD Unavailable [phone] Israel Mari MD Unavailable [phone] Matthew Jones MD Unavailable Raheem Hess MD Unavailable [phone] Eugenia Tejada MD Primary Care Provider + Pinky Levin RN Unavailable [phone] Active Problems Problem Noted Date Diagnosed Date [...] -Telemetry -Consider GI consult in the AM NURA on CKD 3b 11/28/2024 Assessment & Plan [...] 04/23/2021 Assessment & Plan (06/13/2021 1:41 AM DISPATCHER SERVICE): - chronic, not at goal but improved - somewhat depressed due to current medical/physical condition - also has fibromyalgia - started Cymbalta on last visit with improvement, now at Cymbalta DR 40 mg daily - continue with current therapy Assessment & Plan (03/16/2021 12:10 AM DISPATCHER SERVICE): - somewhat depressed due to current medical/physical [...] panel/ferritin/B12/folate Assessment & Plan (03/16/2021 12:18 AM DISPATCHER SERVICE): - chronic condition, normalized - check Irons [...] 12/27/2015 Assessment & Plan (03/16/2021 12:16 AM DISPATCHER SERVICE): - noted in the past - most [...] 11/04/2021 Assessment & Plan (03/16/2021 12:06 AM DISPATCHER SERVICE): - stable and well controled - currently [...] her hx of smoking Coronary arteriosclerosis in [place] artery 10/12 Assessment & Plan (12/03/2020 2:59 [...] 15 years - 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 user interface 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 time - I have seen [...] 15 years - 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 user interface 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 time - I have seen [...] sent Assessment & Plan (06/13/2021 1:39 AM DISPATCHER SERVICE): - chronic, not at goal/worse - follows [...] sent Assessment & Plan (03/04/2021 2:01 PM DISPATCHER SERVICE): - chronic, not at goal - not [...] (08/24/2020): Added automatically from request for surgery [id number] Assessment & Plan (09/04/2020 8:59 PM CDT): [...] Encounter for preventive health examination 08/31/2009 09/03/2020 Additional Health Concerns Active Problems Noted Date Diagnosed Date Initial Follow-Up Appointment 12/03/2024 Goals Goal Patient Goal Type Associated Problems Recent Progress Patient-Stated? Author Patient will have kept initial appointment and will show signs of improvement to baseline Care Plan Initial Follow-Up Appointment Pinky Rendon RN Interventions Care Plan Interventions Intervention Entry Date Outcome Follow up with patient 2 days after Post Hospital Visit office visit to ensure understanding of changes and follow-up plan 12/03/2024 Coordinate with patient/caregiver(s) to ensure patient is able to keep scheduled appointment 12/03/2024 Address any barriers for keeping scheduled appointment 12/03/2024 Discuss with patient/ caregiver plan for transportation to appointment 12/03/2024 Ensure Pt has follow-up scheduled within 7 days of discharge 12/03/2024 Related Goals and Interventions Goal Associated Intervent ions Patient will have kept initi al appointment and will show signs of improvement to baseline Follow up with patient 2 days after Post Hospital Visit office visit to ensure understanding of changes and follow-up plan; Coordinate with patient/caregiver(s) to ensure patient is able to keep scheduled appointment; Address any barriers for keeping scheduled appointment; Discuss with patient/ caregiver plan for transportation to appointment; Ensure Pt has follow-up scheduled within 7 days of discharge
[2024-12-04 16:22] LABS: Hematocrit 34.1 % (37.0-47.0); Hemoglobin 10.7 g/dL (12.0-15.0); Immature Granulocyte Percent A 0.8 % (0-0.5); Lymphocytes Absolute Auto 1.54 K/mm3 (0.9-3.2); Mean Corpuscular HGB Conc 31.4 g/dl (32-36); Mean Corpuscular Hemoglobin 31.4 pg (26-34); Mean Corpuscular Volume 100.0 fl (80-100); Nucleated Red Blood Cells Absolute Auto 0.000 K/mm3 (0.0-0.012); Nucleated Red Blood Cells Perc 0.0 % (0.0-0.2); Platelet Count Result 178 k/mm3 (150-375); Red Blood Count 3.41 M/mm3 (4.2-5.4); White Blood Count 7.2 K/mm3 (4.5-10.0)
[2024-12-04 16:32] LABS: Alanine Aminotransferase 20 U/L (6-35); Albumin Level 3.7 g/dL (3.5-5.1); Alkaline Phosphatase 70 U/L (38-126); Anion Gap 7 mmol/L (4-12); Aspartate Amino Transferase 51 U/L (14-36); Bilirubin,Total 0.4 mg/dL (0.2-1.3); Blood Urea Nitrogen 12 mg/dL (7-17); Calcium 9.4 mg/dL (8.4-10.2); Carbon Dioxide 26 mmol/L (22-30); Chloride 98 mmol/L (98-107); Estimated Glomerular Filt Rate 40; Glucose 101 mg/dL (65-110); Potassium 4.1 mmol/L (3.4-5.0); Sodium 131 mmol/L (137-145); Total Protein 6.9 g/dL (6.3-8.2)
== END 2024-12-04 14:24 | disposition home or self-care (01) ==
LOC: ANHGOSHLAB 14:24
PROVIDERS: PCP Family Medicine; Visit Provider Family Medicine
DX: K51.50 Left sided colitis without complications (principal); N18.9 Chronic kidney disease, unspecified
CPT/HCPCS: 36415; 80053; 85025

== ENCOUNTER 2025-01-08 12:39 | Outpatient (CLI) | payer MEDICARE, SELFPAY ==
[2025-01-08 17:03] LABS: Hematocrit 32.4 % (37.0-47.0); Hemoglobin 10.6 g/dL (12.0-15.0); Immature Granulocyte Percent A 0.2 % (0-0.5); Lymphocytes Absolute Auto 2.41 K/mm3 (0.9-3.2); Mean Corpuscular HGB Conc 32.7 g/dl (32-36); Mean Corpuscular Hemoglobin 32.2 pg (26-34); Mean Corpuscular Volume 98.5 fl (80-100); Nucleated Red Blood Cells Absolute Auto 0.000 K/mm3 (0.0-0.012); Nucleated Red Blood Cells Perc 0.0 % (0.0-0.2); Platelet Count Result 163 k/mm3 (150-375); Red Blood Count 3.29 M/mm3 (4.2-5.4); White Blood Count 6.0 K/mm3 (4.5-10.0)
[2025-01-08 17:18] LABS: Anion Gap 7 mmol/L (4-12); Blood Urea Nitrogen 9 mg/dL (7-17); Calcium 9.1 mg/dL (8.4-10.2); Carbon Dioxide 26 mmol/L (22-30); Chloride 97 mmol/L (98-107); Estimated Glomerular Filt Rate 44; Glucose 100 mg/dL (65-110); Potassium 3.6 mmol/L (3.4-5.0); Sodium 130 mmol/L (137-145)
== END 2025-01-08 12:40 | disposition home or self-care (01) ==
PROVIDERS: PCP Family Medicine; Visit Provider Family Medicine
DX: E87.1 Hypo-osmolality and hyponatremia (principal); K51.50 Left sided colitis without complications; I15.0 Renovascular hypertension
CPT/HCPCS: 36415; 80048; 85025